=== PATIENT | female | born 1940 | race Caucasian/White ===

== ENCOUNTER 2017-06-16 08:09 | Emergency (ER) | payer OTHER ==
[2017-06-16 09:02] LABS: Absolute Lymphocytes (CBC) 1.6 K/uL (0.7-4.9); Absolute Monocytes 0.6 K/uL (0.1-1.3); Absolute Neutrophil 3.6 K/uL (1.8-8.0); Basophils % 1.1 % (0-1.3); Eosinophils % 1.7 % (0-4.4); Hematocrit 39.2 % (36.0-45.0); Lymphocytes % 26.5 % (15.3-44.8); MCH 32.8 pg (27.0-35.0); MCV 98.1 fL (80-100); MPV 9.4 fL (7.6-11.3)
[2017-06-16 09:06] LABS: Protime INR 0.97
[2017-06-16 09:13] LABS: Magnesium 2.2 mg/dL (1.8-2.5)
[2017-06-16 09:20] LABS: CKMB Creatine Kinase MB 1.7 ng/ml (0.3-4.0)
[2017-06-16 09:26] LABS: Potassium 3.8 mEq/L (3.6-5.0)
[2017-06-16] MEDS ORDERED: MORPHINE 4 MG/ML SYR ONE (10:04)
[2017-06-16] MEDS ORDERED: ONDANSETRON 4 MG/2 ML VIAL ONE ×2 (10:04→12:39)
[2017-06-16] MEDS ORDERED: ASPIRIN 81 MG CHEWABLE TABLET ONE (10:04)
--- NOTE | 2017-06-16 10:43 | EKG ---
Test Date: 2017-06-16 Test Time: 08:26:35 Technical Business Analyst: YOUNG MEASUREMENT RESULTS: Intervals: Rate: 72 [place]: 174 QRSD: 104 QT: 400 QTc: 438 Homer: P: 45 [place]: 174 QRS: -1 T: 20 INTERPRETIVE STATEMENTS: Normal sinus rhythm Normal ECG Compared to ECG 02/27/2017 18:31:13 Incomplete right bundle-branch block no longer present Electronically Signed On 06-16-17 10:43:16 CDT by Kaleb Joseph
--- NOTE | 2017-06-16 10:59 | RAD REPORT ---
EXAM DESCRIPTION: Sebastian Single View06/16/2017 9:02 am CLINICAL HISTORY: Chest pain COMPARISON: February 2017 FINDINGS: The lungs appear clear of acute infiltrate. The heart is mildly enlarged IMPRESSION: No acute abnormalities displayed
--- NOTE | 2017-06-16 12:09 | EDPHYS ---
Physician Documentation [facility] Name: Lila Jenkins Age: 76 yrs Sex: Female : 1940 Arrival Date: 06/16/2017 Time: 08:13 Bed 8 Private MD: Rolo Kapadia B ED Physician Sterling Petty HPI: 06/16 08:33 This 76 yrs old Female presents to ER via Ambulatory with complaints of Chest kb Pain, Cough. 08:33 The patient or guardian reports cough, that is intermittent, described as mild, kb described as moderate, with no sputum. Onset: The symptoms/episode began/occurred yesterday. Severity of symptoms: At their worst the symptoms were mild, moderate, in the emergency department the symptoms are unchanged. Modifying factors: The symptoms are alleviated by nothing, the symptoms are aggravated by nothing. Associated signs and symptoms: Pertinent positives: chest pain, Pertinent negatives: diarrhea, ear ache, fever, nausea, rhinorrhea, sore throat, vomiting. The patient has not experienced similar symptoms in the past. The patient has not recently seen a physician. Historical: - Allergies: 08:28 No Known Allergies; jl7 - Home Meds: 08:28 propasenone 150 mg 150mg 1.5 tab three times a day for Afib [Active]; jl7 - PMHx: 08:28 Atrial Fib; Bronchitis; GERD; upper GI bleed; UTI; jl7 - PSHx: 08:28 Hysterectomy; Cholecystectomy; jl7 - Immunization history:: Adult Immunizations up to date. - Social history:: Smoking status: Patient/guardian denies using tobacco. ROS: 08:32 Constitutional: Negative for fever, chills, and weight loss, Neck: Negative for injury, kb pain, and swelling, Abdomen/GI: Negative for abdominal pain, nausea, vomiting, diarrhea, and constipation, Back: Negative for injury and pain, : Negative for injury, bleeding, discharge, and swelling, MS/Extremity: Negative for injury and deformity, Skin: Negative for injury, rash, and discoloration, Neuro: Negative for headache, weakness, numbness, tingling, and seizure. 08:32 Cardiovascular: Positive for chest pain, with cough, Negative for edema, orthopnea, palpitations, paroxysmal nocturnal dyspnea. 08:32 Respiratory: Positive for cough, Negative for dyspnea on exertion, hemoptysis, orthopnea, pleurisy, shortness of breath, sputum production, wheezing. Exam: 08:32 Constitutional: This is a well developed, well nourished patient who is awake, alert, kb and in no acute distress. Head/Face: Normocephalic, atraumatic. ENT: Nares patent. No nasal discharge, no septal abnormalities noted. Tympanic membranes are normal and external auditory canals are clear. Oropharynx with no redness, swelling, or masses, exudates, or evidence of obstruction, uvula midline. Mucous membranes moist. Neck: Trachea midline, no thyromegaly or masses palpated, and no cervical lymphadenopathy. Supple, full range of motion without nuchal rigidity, or vertebral point tenderness. No Meningismus. Chest/axilla: Normal chest wall appearance and motion. Nontender with no deformity. No lesions are appreciated. Cardiovascular: Regular rate and rhythm with a normal S1 and S2. No gallops, murmurs, or rubs. Normal PMI, no JVD. No pulse deficits. Respiratory: Lungs have equal breath sounds bilaterally, clear to auscultation and percussion. No rales, rhonchi or wheezes noted. No increased work of breathing, no retractions or nasal flaring. Abdomen/GI: Soft, non-tender, with normal bowel sounds. No distension or tympany. No guarding or rebound. No evidence of tenderness throughout. Back: No spinal tenderness. No costovertebral tenderness. Full range of motion. Skin: Warm, dry with normal turgor. Normal color with no rashes, no lesions, and no evidence of cellulitis. MS/ Extremity: Pulses equal, no cyanosis. Neurovascular intact. Full, normal range of motion. Neuro: Awake and alert, GCS 15, oriented to person, place, time, and situation. Cranial nerves II-XII grossly intact. Motor strength 5/5 in all extremities. Sensory grossly intact. Cerebellar exam normal. Normal gait. Vital Signs: 08:28 BP 170 / 78; Pulse 74; Resp 16; Temp 97.5; Pulse Ox 100% ; Weight 45.81 kg; Height 5 jl7 ft. 2 in. (157.48 cm); Pain 5/10; 08:42 BP 143 / 70; Pulse 72; Resp 14 S; Pulse Ox 99% on R/A; Pain 5/10; jtb 09:34 BP 166 / 73; Pulse 61; Resp 13; Pulse Ox 98% on R/A; Pain 5/10; jtb 09:44 BP 144 / 75; Pulse 65; Resp 16; Pulse Ox 98% on R/A; Pain 5/10; jtb 10:24 BP 133 / 70; Pulse 61; Resp 16; Pulse Ox 99% on R/A; jb1 11:29 BP 141 / 69; Pulse 64; Resp 16 S; Pulse Ox 97% on R/A; jl7 12:05 BP 140 / 69; Pulse 58; Resp 16 S; Pulse Ox 98% on R/A; jl7 08:28 Body Mass Index 18.47 (45.81 kg, 157.48 cm) jl7 MDM: 08:24 Patient medically screened. kb 08:32 Data reviewed: vital signs, nurses notes. Data interpreted: Pulse oximetry: on room air kb is 100 %. Interpretation: normal. 11:20 ED course: Pt states she has no pain at this time. . kb 11:26 Counseling: I had a detailed discussion with the patient and/or guardian regarding: the historical points, exam findings, and any diagnostic results supporting the discharge/admit diagnosis, lab results, radiology results, the need for outpatient follow up, a family practitioner, to return to the emergency department if symptoms worsen or persist or if there are any questions or concerns that arise at home. 12:08 Data reviewed: I have discussed the patient's presentation/case with the attending Emergency Department Physician;. 06/16 08:24 Order name: Basic Metabolic Panel 06/16 08:24 Order name: BNP 06/16 08:24 Order name: CBC with Diff 06/16 08:24 Order name: Ckmb 06/16 08:24 Order name: CPK 06/16 08:24 Order name: Magnesium 06/16 08:24 Order name: PT-INR 06/16 08:24 Order name: Ptt, Activated 06/16 08:24 Order name: Troponin (emerg Dept Use Only) 06/16 09:10 Order name: Basic Metabolic Panel; Complete Time: 09:28 EDMS 06/16 09:13 Order name: Magnesium; Complete Time: 09:28 EDMS 06/16 09:17 Order name: CBC with Automated Diff; Complete Time: 09:25 EDMS 06/16 09:17 Order name: Troponin (Emerg Dept Use Only); Complete Time: 09:25 EDMS 06/16 09:17 Order name: Protime (+INR); Complete Time: 09:25 EDMS 06/16 08:24 Order name: XRAY Chest (1 view) kb 06/16 08:24 Order name: EKG; Complete Time: 08:25 kb 06/16 08:24 Order name: Cardiac monitoring; Complete Time: 08:29 kb 06/16 08:24 Order name: EKG - Nurse/Tech; Complete Time: 08:29 kb 06/16 09:17 Order name: PTT, Activated Partial Thromb; Complete Time: 09:25 EDMS 06/16 09:20 Order name: BNP B-Type Natriuretic Peptide; Complete Time: 09:25 EDMS 06/16 09:21 Order name: CKMB Creatine Kinase MB; Complete Time: 09:28 EDMS 06/16 09:27 Order name: Creatine Phosphokinase; Complete Time: 09:28 EDMS 06/16 10:59 Order name: RAD; Complete Time: 11:00 EDMS 06/16 11:15 Order name: Troponin (emerg Dept Use Only) kb 06/16 11:16 Order name: EKG; Complete Time: 11:16 kb 06/16 12:07 Order name: Troponin (Emerg Dept Use Only); Complete Time: 12:08 EDMS 06/16 08:24 Order name: IV Saline Lock; Complete Time: 08:51 kb 06/16 08:24 Order name: Labs collected and sent; Complete Time: 08:51 kb 06/16 08:24 Order name: O2 Per Protocol; Complete Time: 08:29 kb 06/16 08:24 Order name: O2 Sat Monitoring; Complete Time: 08:29 kb 06/16 08:24 Order name: Urine Dipstick-Ancillary (obtain specimen); Complete Time: 08:29 kb 06/16 11:16 Order name: EKG - Nurse/Tech; Complete Time: 11:41 kb Administered Medications: 09:46 Drug: Aspirin Chewable Tablet 324 mg Route: PO; jl7 10:22 Follow up: Response: No adverse reaction jl7 09:48 Drug: Zofran 4 mg Route: IVP; Site: right forearm; jl7 10:23 Follow up: Response: No adverse reaction jl7 09:50 Drug: morphine 4 mg Route: IVP; Site: right forearm; jl7 10:22 Follow up: Response: No adverse reaction; Pain is decreased jl7 12:22 Drug: Zofran 4 mg Route: IVP; Site: right forearm; jl7 12:30 Follow up: Response: No adverse reaction; Nausea is decreased jl7 Disposition: 14:00 Co-signature as Attending Physician, Sterling Petty MD I agree with the assessment and kdr plan of care. Disposition: 06/16/17 12:08 Discharged to Home. Impression: Chest pain, unspecified - with cough, Cough. - Condition is Stable. - Discharge Instructions: Cough, Adult, [id number]. - Medication Reconciliation Form, Thank You Letter, Antibiotic Education, Prescription Opioid Use form. - Follow up: Emergency Department; When: As needed; Reason: Worsening of condition. Follow up: Private Physician; When: 2 - 3 days; Reason: Recheck today's complaints, Continuance of care, Re-evaluation by your physician. Signatures: Dispatcher [employer] EDMeghann Reynolds, LIVING NURSE-C LIVING NURSE-Ckb Sterling Petty MD MD kdr Kenna Cordero, RANJEET RN garrett7 Lio Desai
--- NOTE | 2017-06-16 12:09 | ER ---
Nurse's Notes [facility] Name: Lila Jenkins Age: 76 yrs Sex: Female : 1940 Arrival Date: 06/16/2017 Time: 08:13 Bed 8 Private MD: Rolo Kapadia B Diagnosis: Chest pain, unspecified-with cough;Cough Presentation: 06/16 08:26 Presenting complaint: Patient states: c/o pain in substernal area to the back, pt jl7 states "It feels like a sore muscle from coughing.". Transition of care: patient was not received from another setting of care. Onset of symptoms was June 15, 2017. Care prior to arrival: None. 08:26 Method Of Arrival: Ambulatory [facility] 08:26 Acuity: MAREN 3 jl7 Triage Assessment: 08:28 General: Appears in no apparent distress. uncomfortable, Behavior is calm, cooperative, jl7 appropriate for age. Pain: Complains of pain in mid-sternal area Pain radiates to thoracic area Pain currently is 5 out of 10 on a pain scale. Quality of pain is described as "Sore" Pain began 1 day ago. Is continuous. Cardiovascular: Patient's skin is warm and dry. Rhythm is sinus rhythm. Historical: - Allergies: 08:28 No Known Allergies; jl7 - Home Meds: 08:28 propasenone 150 mg 150mg 1.5 tab three times a day for Afib [Active]; jl7 - PMHx: 08:28 Atrial Fib; Bronchitis; GERD; upper GI bleed; UTI; jl7 - PSHx: 08:28 Hysterectomy; Cholecystectomy; jl7 - Immunization history:: Adult Immunizations up to date. - Social history:: Smoking status: Patient/guardian denies using tobacco. Screenin:32 Abuse screen: Denies threats or abuse. Denies injuries from another. Nutritional jtb screening: No deficits noted. Tuberculosis screening: No symptoms or risk factors identified. Fall Risk None identified. Assessment: 08:32 General: Appears in no apparent distress. uncomfortable, Behavior is calm, cooperative, jtb appropriate for age. Pain: Complains of pain in xyphoid area Pain does not radiate. Pain currently is 5 out of 10 on a pain scale. at worst was 5 out of 10 on a pain scale. Quality of pain is described as dull, Pain began 1 day ago. Is continuous. Neuro: Level of Consciousness is awake, alert, obeys commands, Oriented to person, place, time, situation, Reports being lightheaded. Cardiovascular: Heart tones S1 S2 present Patient's skin is warm and dry. Respiratory: Airway is patent Respiratory effort is even, unlabored, Respiratory pattern is regular, symmetrical. GI: Reports nausea. : No signs and/or symptoms were reported regarding the genitourinary system. EENT: No signs and/or symptoms were reported regarding the EENT system. Derm: Skin is intact, Skin is pink, warm \\T\\ dry. Musculoskeletal: No signs and/or symptoms reported regarding the musculoskeletal system. 09:34 Reassessment: Patient appears in no apparent distress at this time. No changes from jtb previously documented assessment. Patient and/or family updated on plan of care and expected duration. Pain level reassessed. Patient is alert, oriented x 3, equal unlabored respirations, skin warm/dry/pink. 09:43 Reassessment: Pt c/o continued pain in the chest and back, requesting pain meds. jl7 Provider notified, see MAR for orders. 10:15 Reassessment: Pt reports decrease in pain, and is now denying pain. jtb 11:10 Reassessment: Provider at bedside discussing plan of care. [facility] 12:26 Reassessment: Patient and/or family updated on plan of care and expected duration. Pain jtb level reassessed. Patient is alert, oriented x 3, equal unlabored respirations, skin warm/dry/pink. Pt began vomiting during discharge, provider notified, see MAR for orders. Daughter notified that pt is ready for discharge and is on the way Patient denies pain at this time. Vital Signs: 08:28 BP 170 / 78; Pulse 74; Resp 16; Temp 97.5; Pulse Ox 100% ; Weight 45.81 kg; Height 5 jl7 ft. 2 in. (157.48 cm); Pain 5/10; 08:42 BP 143 / 70; Pulse 72; Resp 14 S; Pulse Ox 99% on R/A; Pain 5/10; jtb 09:34 BP 166 / 73; Pulse 61; Resp 13; Pulse Ox 98% on R/A; Pain 5/10; jtb 09:44 BP 144 / 75; Pulse 65; Resp 16; Pulse Ox 98% on R/A; Pain 5/10; jtb 10:24 BP 133 / 70; Pulse 61; Resp 16; Pulse Ox 99% on R/A; jb1 11:29 BP 141 / 69; Pulse 64; Resp 16 S; Pulse Ox 97% on R/A; jl7 12:05 BP 140 / 69; Pulse 58; Resp 16 S; Pulse Ox 98% on R/A; jl7 08:28 Body Mass Index 18.47 (45.81 kg, 157.48 cm) jl7 ED Course: 08:13 Patient arrived in ED. mr 08:13 Rolo Kapadia MD is Private Physician. mr 08:20 Meghann Ventura [facility]-C [facility] kb 08:20 Sterling Petty MD is Attending Physician. kb 08:25 Kenna Cordero RN is Primary Nurse. jl7 08:27 Triage completed. jl7 08:28 Arm band placed on right wrist. jl7 08:32 Patient has correct armband on for positive identification. Placed in gown. Bed in low jtb position. Call light in reach. Side rails up X 1. general farmer on. Pulse ox on. NIBP on. 08:39 EKG done, by neurology tech. reviewed by Meghann GONZALES. at1 08:49 Initial lab(s) drawn, by pr, sent to lab. Inserted saline lock: 20 gauge in right jl7 forearm, using aseptic technique. Blood collected. Patient maintains SpO2 saturation greater than 95% on room air. 08:59 X-ray completed. Portable x-ray completed in exam room. Patient tolerated procedure sw well. 11:32 EKG done, by neurology tech. reviewed by Meghann GONZALES. tc 12:35 No provider procedures requiring assistance completed. IV discontinued, intact, jtb bleeding controlled. Administered Medications: 09:46 Drug: Aspirin Chewable Tablet 324 mg Route: PO; jl7 10:22 Follow up: Response: No adverse reaction jl7 09:48 Drug: Zofran 4 mg Route: IVP; Site: right forearm; jl7 10:23 Follow up: Response: No adverse reaction jl7 09:50 Drug: morphine 4 mg Route: IVP; Site: right forearm; jl7 10:22 Follow up: Response: No adverse reaction; Pain is decreased jl7 12:22 Drug: Zofran 4 mg Route: IVP; Site: right forearm; jl7 12:30 Follow up: Response: No adverse reaction; Nausea is decreased jl7 Outcome: 12:08 Discharge ordered by . kb 12:35 Discharged to home ambulatory. jtb 12:35 Condition: stable 12:35 Discharge instructions given to patient, family, Instructed on discharge instructions, follow up and referral plans. Demonstrated understanding of instructions, follow-up care. 12:35 Attestation : I agree with everything documented by Lio Desai, Student Nurse. jl7 12:36 Patient left the ED. jtb Signatures: Jefe Ghotra jb1 Meghann Ventura, CUSHION SEWER-C CUSHION SEWER-Ckb Maryanne YoungbloodalesJessica, inspector of weights and measures EKG Tat1 Yani Valladares, inspector of weights and measures EKG Ttc Casandra Weeks Jahala, RN RN jl7 Lio Desai jtb
[2017-06-16 12:40] VITALS: TEMP 97.5
[2017-06-16 12:50] VITALS: BP 140/69; O2SAT 98
--- NOTE | 2017-06-16 13:43 | EKG ---
Test Date: 2017-06-16 Test Time: 11:22:58 Mixing Machine Operator: SHERRIE MEASUREMENT RESULTS: Intervals: Rate: 60 [place]: 176 QRSD: 98 QT: 440 QTc: 440 [place]: P: 71 [place]: 176 QRS: 34 T: 40 INTERPRETIVE STATEMENTS: Normal sinus rhythm Normal ECG Compared to ECG 06/16/2017 08:26:35 No significant changes Electronically Signed On 06-16-17 13:42:36 CDT by Kaleb Joseph
== END 2017-06-16 12:36 | disposition home or self-care (01) ==
LOC: ER 08:09
DX: R05 Cough (principal); I48.91 Unspecified atrial fibrillation; Z79.01 Long term (current) use of anticoagulants
CPT/HCPCS: 36415; 71045; 80048; 82550; 82553; 83735; 83880; 84484 ×2; 85025; 85610; 85730; 93005 ×2; 96374; 96375; 99285; J2405 ×2

== ENCOUNTER 2018-03-19 05:47 | Emergency (ER) | payer OTHER ==
[2018-03-19] MEDS ORDERED: NA CHLORIDE 0.9% 1,000 ML ONE (06:41)
--- OUTSIDE RECORDS SUMMARY | 2018-03-19 06:54 | XMS REPORT | Continuity of Care Document ---
:1940 Author Organization Interface Problems Problem Status Onset Classification Date Comments Source Date Reported Dilation of Active 03/01/20 Finding 03/01/[address] [facility] [place] Palpitations Active 03/01/20 Finding 03/01/[address] [facility] [facility] [place] Atrial Active 03/01/20 Finding 03/01/[address] [facility] fibrillation [facility] [place] Confusion Active 03/01/20 Finding 03/01/[address] [facility] [facility] [place] Hyperlipidemia Active 03/01/20 Finding 03/01/[address] [facility] [facility] [place] Chest pain Active 03/01/20 Finding 03/01/[address] [facility] [facility] [place] Hypertension Active 03/01/20 Finding 03/01/[address] [facility] [facility] [place] Urinary tract Active Finding 03/01/[address] [facility] infectious [facility] disease [place] Weakness Active Finding 03/01/[address] [facility] [place] Abdominal pain Active Finding 03/01/[address] [facility] [place] Medications Medication Details Route Status Patient Ordering Order Source Instructions Provider Date Lisinopril DAILY Active Fausto [facility] [place] Pantoprazole DAILY AT Active Fausto [facility]30 017 [facility] [place] Alprazolam THREE Active Fausto [facility] TIMES A [facility]17 [facility] DAY PRN [place] For Anxiety Aspirin DAILY Active Faust[facility] [place] Propafenone THREE Active Lambert [facility] TIMES A [facility]17 [facility] DAY [place] Propafenone [address] [facility] TIMES A 017 [facility] DAY [place] Propafenone Q8H Active Cortes [facility] [place] Propafenone DAILY Active [facility] [place] Allergies, Adverse Reactions, Alerts Substance Category Reaction Severity Reaction Status Date Comments Source type Reported Immunizations Immunization Date Given Site Status Last Updated Comments Source Results Order Name Results Value Reference Date Interpretation Comments Source Range Laboratory Triglycerides 85 mg/dL 35 - 160 02/[address] [facility] St. Studies Level /2016 [facility] [place] Laboratory Total 0.7 mg/dL 0.3 - 1.2 02/[address] [facility] St. Studies Bilirubin /2016 [facility] [place] Laboratory Sodium Level 142 mEq/L 135 - 145 02/[address] [facility] St. Studies [facility] [place] Laboratory Serum Total 5.6 g/dL 6.0 - 8.3 02/28 [facility]. Studies Protein /2016 [facility] [place] Laboratory Potassium 4.0 mEq/L 3.6 - 5.0 02/[address] [facility] St. Studies Level /2016 [facility] [place] Laboratory LDL 138 02/28 [facility]. Studies Cholesterol, /2016 [facility] - Calculated [place] Laboratory HDL 64 mg/dL 29 - 89 02/[address] [facility] St. Studies Cholesterol /2016 [facility] [place] Laboratory Glucose Level 94 mg/dL 65 - 120 02/[address] [facility] St. Studies /2016 [facility] [place] Laboratory Globulin 2.5 g/dL 2.3 - 3.5 02/[address] [facility] St. Studies /2016 [facility] [place] Laboratory Estimat 69 mL/min 90 02/[address] [facility] St. Studies Glomerular /2016 [facility] Filtration [place] Rate Laboratory Creatinine 0.81 mg/dL 0.44 - 02/[address] [facility] St. Studies 1.00 [facility] [place] Laboratory Creatine 2.1 ng/ml 0.3 - 4.0 02/[address] [facility] St. Studies Kinase MB /2016 [facility] [place] Laboratory Creatine 41 IU/L 22 - 269 02/[address] [facility] St. Studies Kinase /2016 [facility] [place] Laboratory Cholesterol/H 3.42 02/[address] [facility] St. Studies DL Ratio /2016 [facility] [place] Laboratory Cholesterol 219 mg/dL 02/[address] [facility] St. Studies Level /2017 [facility] [place] Laboratory Chloride 109 mEq/L 101 - 111 02/[address] [facility] St. Studies Level /2016 [facility] [place] Laboratory Carbon 28 mEq/L 21 - 31 02/[address] [facility] St. Studies Dioxide Level /2016 [facility] [place] Laboratory Calcium Level 9.0 mg/dL 8.5 - 10.5 02/[address] [facility] St. Studies /2016 [facility] [place] Laboratory Blood Urea 10 mg/dL 6 - 20 02/28 [facility]. Studies Nitrogen /2016 [facility] [place] Laboratory Aspartate 22 IU/L 10 - 42 02/28 [facility]. Studies Amino Transf /2016 [facility] (AST/SGOT) [place] Laboratory Alkaline 33 IU/L 42 - 121 02/28 [facility]. Studies Phosphatase /2016 [facility] [place] Laboratory Albumin/Globu 1.2 1.1 - 1.8 02/28 [facility]. Studies velia Ratio /2016 [facility] [place] Laboratory Albumin 3.1 g/dL 3.2 - 5.5 02/28 [facility]. Studies /2016 [facility] [place] Laboratory Alanine 12 IU/L 10 - 60 02/28 [facility]. Studies Aminotransfer [facility] ase [place] (ALT/SGPT) Laboratory Troponin I null 02/28 [facility]. Studies /2016 [facility] [place] Laboratory White Blood 6.4 K/uL 4.3 - 10.9 02/28 [facility]. Studies Count /2016 [facility] [place] Laboratory Red Cell 14.0 % 12.1 - 02/28 [facility]. Studies Distribution 15.2 /2016 [facility] Width [place] Laboratory Red Blood 3.55 M/uL 3.86 - 02/28 [facility]. Studies Count 4.86 /2016 [facility] [place] Laboratory Platelet 175 K/uL 152 - 406 02/28 [facility]. Studies Count /2016 [facility] [place] Laboratory Neutrophils % 48.0 % 41.7 - 02/28 [facility]. Studies 73.7 /2016 [facility] [place] Laboratory Monocytes % 12.0 % 3.3 - 12.3 02/28 [facility]. Studies /2016 [facility] [place] Laboratory Mean Platelet 9.5 fL 7.6 - 11.3 02/28 [facility]. Studies Volume /2016 [facility] [place] Laboratory Mean 98.3 fL 80 - 100 02/28 [facility]. Studies Corpuscular /2016 [facility] Volume [place] Laboratory Mean 33.7 g/dL 32.0 - 02/28 [facility]. Studies Corpuscular 36.0 /2016 [facility] Hemoglobin [place] [facility] Laboratory Mean 33.2 pg 27.0 - 02/28 [facility]. Studies Corpuscular 35.0 /2016 [facility] Hemoglobin [place] Laboratory Lymphocytes % 37.0 % 15.3 - 02/[address] [facility] St. Studies 44.8 /2016 [facility] [place] Laboratory Hemoglobin 11.8 g/dL 12.0 - 02/[address] [facility] St. Studies 15.0 /2016 [facility] [place] Laboratory Hematocrit 34.9 % 36.0 - 02/28 [facility]. Studies 45.0 /2016 [facility] [place] Laboratory Eosinophils % 2.2 % 0 - 4.4 02/[address] [facility] St. Studies [facility] [place] Laboratory Basophils % 0.8 % 0 - 1.3 02/28 [facility]. Studies [facility] [place] Laboratory Absolute 3.1 K/uL 1.8 - 8.0 02/28 [facility]. Studies Neutrophil [facility] [place] Laboratory Absolute 0.8 K/uL 0.1 - 1.3 02/28 [facility]. Studies Monocytes [facility] - (CBC) [place] Laboratory Absolute 2.4 K/uL 0.7 - 4.9 02/28 [facility]. Studies Lymphocytes [facility] - (CBC) [place] Laboratory Absolute 0.1 K/uL 0 - 0.5 02/28 [facility]. Studies Eosinophils [facility] - (CBC) [place] Laboratory Absolute 0.1 K/uL 0 - 0.5 02/28 [facility]. Studies Basophils [facility] - (CBC) [place] Laboratory Rapid null 02/27 [facility]. Studies Troponin I /2016 [facility] [place] Laboratory Prothrombin 11.4 9.5 - 12.5 02/27 [facility]. Studies Time SECONDS /2016 [facility] [place] Laboratory INR 0.97 02/27 [facility]. Studies International /2016 [facility] Normalized [place] Ratio Laboratory Activated 27.2 24.3 - 02/27 [facility]. Studies Partial SECONDS 36.9 /2016 [facility] Thromboplast [place] Time Laboratory B-Type 135 pg/ml 02/27 [facility]. Studies Natriuretic [facility] Peptide [place] Laboratory Magnesium 2.0 mg/dL 1.8 - 2.5 02/27 [facility]. Studies Level /2016 [facility] [place] Laboratory Direct null 0 - 0.2 02/27 [facility] Studies Bilirubin /2016 [facility] [place] Laboratory Sedimentation 16 mm/HR 0 - 30 12/23 [facility] Studies Rate, /2016 [facility] [place] Laboratory C-Reactive null 12/23 [facility] Studies Protein /2016 [facility] [place] Laboratory Urine WBC null 12/23 [facility]. Studies [facility] [place] Laboratory Urine null 12/23 [facility] Studies Squamous [facility] Epithelial [place] Cells Laboratory Urine RBC Urine RBC 12/23 [facility]. Studies /2016 [facility] [place] Laboratory Urine Culture Urine 12/23 [facility] Studies Reflexed Culture /2016 [facility] Reflexed [place] Laboratory Urine Urine 12/23 [facility] Studies Bacteria Bacteria /2016 [facility] [place] Laboratory Urine pH 6.0 12/23 [facility]. Studies [facility] [place] Laboratory Urine 0.2 mg/dL 12/23 [facility] Studies Urobilinogen /2016 [facility] [place] Laboratory Urine Total Urine Total 12/23 [facility] Studies Protein Protein /2016 [facility] [place] Laboratory Urine Urine 12/23 [facility] Studies Specific Specific /2016 [facility] [place] Laboratory Urine Nitrite Urine 12/23 [facility] Studies Nitrite [facility] [place] Laboratory Urine Urine 12/23 [facility] Studies Leukocyte Leukocyte /2016 [facility] Esterase Esterase [place] Laboratory Urine Ketones Urine 12/23 [facility] Studies Ketones /2016 [facility] [place] Laboratory Urine Glucose Urine 12/23 [facility] Studies Glucose /2016 [facility] [place] Laboratory Urine Color Urine Color 12/23 [facility] Studies [facility] [place] Laboratory Urine Blood Urine Blood 12/23 [facility] Studies [facility] [place] Laboratory Urine Urine 12/23 [facility] Studies Bilirubin Bilirubin /2016 [facility] [place] Laboratory Urine Urine 12/23 [facility] Studies Appearance Appearance /2016 [facility] [place] Vital Signs Vital Sign Value Date Comments Source Temperature Oral (F) 98 F 03/01/2017 [facility] [place] Heart Rate 58 03/01/2017 [facility] [place] Respitory Rate 18 03/01/2017 [facility] [place] Systolic (mm Hg) 135 03/01/[address] [facility] [place] Diastolic (mm Hg) 66 03/01/[address] [facility] [place] Height 61 02/27/[address] [facility] [place] Weight 100 02/27/[address] [facility] [place] Encounters Location Location Encounter Encounter Reason Attending ADM DC Status Source Details Type Number For Provider Date Date Visit [facility] Registered [id number] 12/[address] [facility] [place] [facility] [facility] [id number] 01/04 01/[address] [facility] Emergency /[facility] [place] [facility] [id number] 02/27 03/[address] [facility] [place] Out[facility] [id number] GRICELDA 11/23 Active [facility] /2018 [facility] [id number] GRICELDA 12/14 Active [facility] Outpatient [id number] GRICELDA 01/25 Active [facility] /[facility] [place] [facility] [id number] GRICELDA 03/08 Active [facility] /[facility] [place] Outpatient [id number] GRICELDA 06/28 Active [facility] /[facility] [place] Procedures Procedure Code Date Perfomer Comments Source Head Brain Wo [id number] [facility] Cont 7 [place] Abdomen & [id number] [facility] Pelvis W 7 [place] Contrast Chest Single [id number] [facility] - View 7 [place] Chest Single [id number] [facility] - View 7 [place] Count [id number] [facility] [place] [id number] [facility] [place]
[2018-03-19 07:06] LABS: Absolute Lymphocytes (CBC) 1.8 K/uL (0.7-4.9); Absolute Monocytes 0.6 K/uL (0.1-1.3); Absolute Neutrophil 3.1 K/uL (1.8-8.0); Basophils % 0.3 % (0-1.3); Eosinophils % 2.5 % (0-4.4); Hematocrit 36.9 % (36.0-45.0); MCH 33.4 pg (27.0-35.0); MCV 97.7 fL (80-100); MPV 9.6 fL (7.6-11.3); Monocytes % 11.4 % (3.3-12.3); RBC Red Blood Cell Count 3.78 M/uL (3.86-4.86)
[2018-03-19 07:10] LABS: Protime INR 0.99
[2018-03-19 07:52] LABS: ALT/SGPT 20 U/L (12-78); AST/SGOT 19 U/L (15-37); Albumin 3.4 g/dL (3.4-5.0); Alkaline Phosphatase 49 U/L (45-117); BUN Blood Urea Nitrogen 13 mg/dL (7-18); Bicarbonate 31 mmol/L (21-32); Bilirubin Direct 0.1 mg/dL (0-0.2); Bilirubin Total 0.3 mg/dL (0.2-1.0); Glucose Level 90 mg/dL (74-106); Magnesium 2.2 mg/dL (1.8-2.4); NT PRO-BNP 133 pg/mL (<450); Potassium 3.3 mmol/L (3.5-5.1); Protein, Total 6.9 g/dL (6.4-8.2); Sodium Level 141 mmol/L (136-145); Troponin (Emerg Dept Use Only) < 0.02 ng/mL (0.0-0.045)
--- NOTE | 2018-03-19 07:58 | RAD REPORT ---
EXAM DESCRIPTION: CT - Head Brain Wo Cont - 03/19/2018 7:31 am CLINICAL HISTORY: Dizziness COMPARISON: November 2017 TECHNIQUE: Computed axial tomography of the head was obtained. IV contrast was not requested. All CT scans are performed using dose optimization technique as appropriate and may include automated exposure control or mA/KV adjustment according to patient size. FINDINGS: An intracranial bleed is not seen . The ventricles are normal in caliber. No extra-axial fluid collection is noted. Moderate to marked low-density within periventricular, deep and subcortical white matter probably represent ischemic changes secondary to small vessel disease. Demyelinating process can also similar appearance Fluid within the sinuses/ mastoids is not seen. IMPRESSION: No acute intracranial abnormality is seen. If patient's symptoms persist MRI of the bra in would be recommended.
[2018-03-19 09:28] LABS: Urine Blood NEGATIVE (NEG); Urine Glucose NEGATIVE (NEG); Urine Protein NEGATIVE (NEG); Urine Specific Gravity 1.015 (1.005-1.030); Urine pH 7.5 (5.0-7.0)
[2018-03-19] MEDS ORDERED: POTASSIUM 25 MEQ EFFERV TAB ONE (09:42)
[2018-03-19 09:47] LABS: Urine Bacteria NONE SEEN /HPF (<20); Urine RBC <5 /HPF (NONE SEEN)
[2018-03-19 09:48] LABS: Urine Culture Reflex Order NOT NEEDED
--- NOTE | 2018-03-19 10:00 | ER ---
Nurse's Notes [facility] Name: Lila Jenkins Age: 77 yrs Sex: Female : 1940 Arrival Date: 03/19/2018 Time: 05:49 Bed 14 [facility] MD: Diagnosis: Weakness;Hypokalemia Presentation: 03/19 06:00 Presenting complaint: Patient states: feeling lightheaded and weak today morning. cc3 Transition of care: patient was not received from another setting of care. Onset of symptoms was March 19, 2018. Risk Assessment: Do you want to hurt yourself or someone else? Patient reports no desire to harm self or others. Initial Sepsis Screen: Does the patient meet any 2 criteria? No. Patient's initial sepsis screen is negative. Does the patient have a suspected source of infection? No. Patient's initial sepsis screen is negative. Care prior to arrival: None. 06:00 Method Of Arrival: Wheelchair cc3 06:00 Acuity: MAREN 3 cc3 Triage Assessment: 06:00 General: Appears in no apparent distress. comfortable, Behavior is calm, cooperative, cc3 appropriate for age. Pain: Denies pain. Historical: - Allergies: 06:00 No Known Allergies; cc3 - Home Meds: 06:00 propasenone 150 mg 150mg 1.5 tab three times a day for AFIB [Active]; cc3 - PMHx: 06:00 Atrial Fib; Bronchitis; GERD; upper GI bleed; UTI; Alzheimers; cc3 - PSHx: 06:00 Hysterectomy; Cholecystectomy; cc3 - Immunization history:: Adult Immunizations not up to date. - Social history:: Smoking status: Patient/guardian denies using tobacco, never smoked. - Ebola Screening: : No symptoms or risks identified at this time. Screenin:00 Abuse screen: Denies threats or abuse. Denies injuries from another. Nutritional cc3 screening: No deficits noted. Tuberculosis screening: No symptoms or risk factors identified. Fall Risk Ambulatory Aid- None/Bed Rest/Nurse Assist (0 pts). Gait- Normal/Bed Rest/Wheelchair (0 pts) Mental Status- Oriented to own ability (0 pts). Assessment: 06:30 Reassessment: Patient's daughters left their mobile numbers: Betzaida [phone] and 3 Rozina [phone]. 07:00 General: Appears in no apparent distress. comfortable, Behavior is calm, cooperative, bp appropriate for age, RECD REPORT FROM ADRIENNE POLLACK. 77YO WF P/W GEN WEAKNESS. PER , SEPSIS W/U IN PROCESS. Pain: Denies pain. Neuro: Level of Consciousness is awake, alert, obeys commands, Oriented to person, place, time, situation, Appropriate for age. Cardiovascular: Rhythm is sinus rhythm. Respiratory: Airway is patent Respiratory effort is even, unlabored, Respiratory pattern is regular, symmetrical. GI: No signs and/or symptoms were reported involving the gastrointestinal system. : No signs and/or symptoms were reported regarding the genitourinary system. EENT: No deficits noted. Derm: No deficits noted. Musculoskeletal: Circulation, motion, and sensation intact. Range of motion: intact in all extremities. 09:00 Reassessment: ALL CURRENT ORDERS COMPLETED, RESULTS PENDING. bp 09:33 Reassessment: PT AMBULATING WITHOUT DIFFICULTY OR ATAXIA. bp 10:00 Reassessment: PT BECOMING INCREASINGLY AGITATED, REFUSING TO STAY IN BED AND YELLING AT bp STAFF. FAMILY CONTACTED FOR D/C HOME. 10:55 Reassessment: PT D/C HOME WITH FAMILY. bp Vital Signs: 06:00 BP 156 / 83; Pulse 66; Resp 20; Temp 98.2(O); Pulse Ox 100% on R/A; Weight 45.36 kg cc3 (R); Height 5 ft. 3 in. (160.02 cm) (R); 07:49 BP 149 / 69; Pulse 61; Resp 20; Pulse Ox 95% ; bp 08:40 BP 140 / 68; Pulse 63; Resp 14; Pulse Ox 100% on R/A; mh5 10:02 BP 159 / 83; Pulse 79; Resp 16; Pulse Ox 100% ; bp 06:00 Body Mass Index 17.71 (45.36 kg, 160.02 cm) cc3 NIH Stroke Scale Scores: 06:31 NIHSS Score: 0 snw ED Course: 05:49 Patient arrived in ED. ag3 05:59 Veronica Horn FNP-C [facility] snw 05:59 Eleazar Toro MD is Attending Physician. snw 06:00 Arm band placed on left wrist. cc3 06:00 Patient has correct armband on for positive identification. Placed in gown. Bed in low cc3 position. Call light in reach. Side rails up X 1. Adult w/ patient. gambling monitor on. Pulse ox on. NIBP on. 06:06 Adrienne Meza is Primary Nurse. cc3 06:18 Triage completed. cc3 07:00 Report given to RN Parag. cc3 07:00 Inserted saline lock: 22 gauge in left antecubital area, using aseptic technique. Blood bp collected. 07:02 Primary Nurse role handed off by Adrienne Meza bp 07:02 Parag Silvestre, RANJEET is Primary Nurse. bp 07:07 X-ray completed. Portable x-ray completed in exam room. Patient tolerated procedure sg4 well. 07:08 XRAY Chest (1 view) In Process Unspecified. EDMS 07:32 CT Head Brain wo Cont In Process Unspecified. EDMS 07:32 CT completed. Patient tolerated procedure well. Patient moved back from CT. bq 10:02 No provider procedures requiring assistance completed. IV discontinued, intact, bp bleeding controlled, No redness/swelling at site. Pressure dressing applied. Administered Medications: 07:00 Drug: NS 0.9% 1000 ml Route: IV; Rate: 75 ml/hr; Site: left antecubital; cc3 10:03 Follow up: IV Status: Completed infusion; IV Intake: 300ml bp 09:37 Drug: Potassium Effervescent Tablet 25 mEq Route: PO; bp 09:38 Follow up: Response: No adverse reaction bp Intake: 10:03 IV: 300ml; Total: 300ml. bp Outcome: 10:00 Discharge ordered by snw 10:55 Discharged to home ambulatory, with family. bp 10:55 Condition: stable 10:55 Discharge instructions given to patient, family, Instructed on discharge instructions, follow up and referral plans. Demonstrated understanding of instructions, follow-up care. 10:56 Patient left the ED. bp NIH Stroke Scale - NIH Stroke Score Date: 03/19/2018 Time: 06:31 Total Score = 0 1a. Level of Consciousness (LOC) - 0(Alert) 1b. Level of Consciousness (LOC) (Year \T\ Age) - 0(Both) 1c. LOC Commands (Open \T\ Closes Eyes/Quality Control Associate) - 0(Both) 2. Best Gaze (Lateral Gaze Paresis) - 0(Normal) 3. Visual Field Loss - 0(No visual loss) 4. Facial Palsy - 0(Normal) 5a. Left Arm: Motor (10-second hold) - 0(No drift) 5b. Right Arm: Motor (10-second hold) - 0(No drift) 6a. Left Leg: Motor (5-second hold - always test supine) - 0(No drift) 6b. Right Leg: Motor (5-second hold - always test supine) - 0(No drift) 7. Limb Ataxia (finger/nose \T\ heel/bazzi - test with eyes open) - 0(Absent) 8. Sensory Loss (pinprick arms/legs/face) - 0(Normal) 9. Best Language: Aphasia (description/naming/reading) - 0(No aphasia) 10. Dysarthria (speech clarity - read or repeat words) - 0(Normal) 11. Extinction and Inattention (visual/tactile/auditory/spatial/personal) - 0(No abnormality) Initials: snw Signatures: Dispatcher [employer] EDMS Veronica Horn, COKE OVEN PATCHER-C COKE OVEN PATCHER-Csnw Radha Melendez Maria 5 Parag Silvestre, RANJEET RN bp Adrienne Meza cc3 Princess Fatima ag3 Kanika Puga 4
--- NOTE | 2018-03-19 10:00 | EDPHYS ---
Physician Documentation [facility] Name: Lila Jenkins Age: 77 yrs Sex: Female : 1940 Arrival Date: 03/19/2018 Time: 05:49 Bed 14 Private MD: [facility]DAY Physician Eleazar Toro HPI: 03/19 06:34 This 77 yrs old Female presents to ER via Wheelchair with complaints of snw Weakness. 06:34 The patient presents to the emergency department with weakness of the entire body, snw generalized weakness, that is mild, that is moderate, difficulty standing, feels like passing out. Onset: The symptoms/episode began/occurred suddenly, last night. Context: occurred at home, occurred while the patient was standing. Associated signs and symptoms: Pertinent positives: nausea. Patient's baseline: Neuro: orientated to person, place, time, recent dx of alzheimer's. It is unknown whether or not the patient has had similar symptoms in the past. The patient has been recently seen by a physician: the patient's primary care provider, Dr. Kapadia. Historical: - Allergies: 06:00 No Known Allergies; cc3 - Home Meds: 06:00 propasenone 150 mg 150mg 1.5 tab three times a day for AFIB [Active]; cc3 - PMHx: 06:00 Atrial Fib; Bronchitis; GERD; upper GI bleed; UTI; Alzheimers; cc3 - PSHx: 06:00 Hysterectomy; Cholecystectomy; cc3 - Immunization history:: Adult Immunizations not up to date. - Social history:: Smoking status: Patient/guardian denies using tobacco, never smoked. - Ebola Screening: : No symptoms or risks identified at this time. ROS: 06:33 Eyes: Negative for injury, pain, redness, and discharge, ENT: Negative for injury, snw pain, and discharge, Neck: Negative for injury, pain, and swelling, Cardiovascular: Negative for chest pain, palpitations, and edema, Respiratory: Negative for shortness of breath, cough, wheezing, and pleuritic chest pain. 06:33 Back: Negative for injury and pain, : Negative for injury, bleeding, discharge, and swelling, MS/Extremity: Negative for injury and deformity, Skin: Negative for injury, rash, and discoloration. 06:33 Psych: Negative for depression, anxiety, suicide ideation, homicidal ideation, and hallucinations. 06:33 Constitutional: Positive for malaise. 06:33 Abdomen/GI: Positive for nausea. 06:33 Neuro: Positive for weakness, dizziness with position change. Exam: 06:31 Head/Face: Normocephalic, atraumatic. Eyes: Pupils equal round and reactive to light, snw extra-ocular motions intact. Lids and lashes normal. Conjunctiva and sclera are non-icteric and not injected. Cornea within normal limits. Periorbital areas with no swelling, redness, or edema. ENT: Nares patent. No nasal discharge, no septal abnormalities noted. Tympanic membranes are normal and external auditory canals are clear. Oropharynx with no redness, swelling, or masses, exudates, or evidence of obstruction, uvula midline. Mucous membranes moist. Neck: Trachea midline, no thyromegaly or masses palpated, and no cervical lymphadenopathy. Supple, full range of motion without nuchal rigidity, or vertebral point tenderness. No Meningismus. Chest/axilla: Normal chest wall appearance and motion. Nontender with no deformity. No lesions are appreciated. Cardiovascular: Regular rate and rhythm with a normal S1 and S2. No gallops, murmurs, or rubs. Normal PMI, no JVD. No pulse deficits. Respiratory: Lungs have equal breath sounds bilaterally, clear to auscultation and percussion. No rales, rhonchi or wheezes noted. No increased work of breathing, no retractions or nasal flaring. 06:31 Back: No spinal tenderness. No costovertebral tenderness. Full range of motion. MS/ Extremity: Pulses equal, no cyanosis. Neurovascular intact. Full, normal range of motion. 06:31 Constitutional: The patient appears alert, awake, pale. 06:31 Abdomen/GI: Inspection: abdomen appears normal, Bowel sounds: hyperactive, in all quadrants. 06:31 Skin: Appearance: Color: pale. 06:31 Neuro: Orientation: is normal, Mentation: is normal, Memory: appropriate for stated age, Motor: is normal, Babinski testing is normal, seizure activity, is not displayed by the patient. Vital Signs: 06:00 BP 156 / 83; Pulse 66; Resp 20; Temp 98.2(O); Pulse Ox 100% on R/A; Weight 45.36 kg cc3 (R); Height 5 ft. 3 in. (160.02 cm) (R); 07:49 BP 149 / 69; Pulse 61; Resp 20; Pulse Ox 95% ; bp 08:40 BP 140 / 68; Pulse 63; Resp 14; Pulse Ox 100% on R/A; mh5 10:02 BP 159 / 83; Pulse 79; Resp 16; Pulse Ox 100% ; bp 06:00 Body Mass Index 17.71 (45.36 kg, 160.02 cm) cc3 NIH Stroke Scale Scores: 06:31 NIHSS Score: 0 snw MDM: 05:59 Patient medically screened. snw 10:00 Data reviewed: vital signs, nurses notes. Data interpreted: Pulse oximetry: on room air snw is 100 %. Interpretation: normal. Counseling: I had a detailed discussion with the patient and/or guardian regarding: the historical points, exam findings, and any diagnostic results supporting the discharge/admit diagnosis, the presence of at least one elevated blood pressure reading (>120/80) during this emergency department visit, lab results, radiology results, the need for outpatient follow up, for definitive care, to return to the emergency department if symptoms worsen or persist or if there are any questions or concerns that arise at home. Response to treatment: the patient's symptoms have markedly improved after treatment, the patient's condition has returned to base line, and as a result, I will discharge patient. Special discussion: Based on the history and exam findings, there is no indication for further emergent testing or inpatient evaluation. I discussed with the patient/guardian the need to see the primary care provider for further evaluation of the symptoms. 03/19 06:00 Order name: Urine Culture snw 03/19 06:00 Order name: Urine Microscopic Only; Complete Time: 09:59 snw 03/19 06:17 Order name: Basic Metabolic Panel; Complete Time: 08:18 snw 03/19 06:17 Order name: CBC with Diff; Complete Time: 07:07 snw 03/19 06:17 Order name: LFT's; Complete Time: 08:18 snw 03/19 06:17 Order name: Magnesium; Complete Time: 08:18 snw 03/19 06:17 Order name: PT-INR; Complete Time: 07:16 snw 03/19 06:17 Order name: Blood Culture Adult (2) snw 12/22 06:17 Order name: TS; Complete Time: 08:18 snw 03/19 06:17 Order name: Procalcitonin; Complete Time: 08:18 snw 03/19 06:17 Order name: Lactate; Complete Time: 08:18 snw 03/19 06:00 Order name: Urine Dipstick-Ancillary (obtain specimen); Complete Time: 09:17 snw 03/19 06:17 Order name: XRAY Chest (1 view); Complete Time: 10:33 snw 03/19 06:17 Order name: EKG; Complete Time: 06:18 snw 03/19 06:17 Order name: Cardiac monitoring; Complete Time: 06:22 snw 03/19 06:17 Order name: EKG - Nurse/Tech; Complete Time: 07:09 snw 03/19 06:17 Order name: IV Saline Lock; Complete Time: 07:09 snw 03/19 06:17 Order name: Labs collected and sent; Complete Time: 07:09 snw 03/19 06:17 Order name: CT Head Brain wo Cont; Complete Time: 08:18 snw 03/19 06:17 Order name: AMMONIA; Complete Time: 08:18 snw 03/19 07:16 Order name: Troponin (Emerg Dept Use Only); Complete Time: 08:18 EDMS 03/19 07:16 Order name: NT PRO-BNP; Complete Time: 08:18 EDMS 03/19 07:16 Order name: Thyroid Stimulating Hormone; Complete Time: 08:18 EDMS 03/19 09:21 Order name: Urine Dipstick--Ancillary (enter results); Complete Time: 09:31 eb 03/19 06:17 Order name: O2 Per Protocol; Complete Time: 06:23 snw 03/19 06:17 Order name: O2 Sat Monitoring; Complete Time: 06:23 snw 03/19 09:25 Order name: Misc. Order: ambulate with patient in hallway; Complete Time: 09:30 snw Administered Medications: 07:00 Drug: NS 0.9% 1000 ml Route: IV; Rate: 75 ml/hr; Site: left antecubital; cc3 10:03 Follow up: IV Status: Completed infusion; IV Intake: 300ml bp 09:37 Drug: Potassium Effervescent Tablet 25 mEq Route: PO; bp 09:38 Follow up: Response: No adverse reaction bp Disposition: 03/19/18 10:00 Discharged to Home. Impression: Weakness, Hypokalemia. - Condition is Stable. - Discharge Instructions: Potassium Content of Foods, Weakness, Hypokalemia. - Medication Reconciliation Form, Thank You Letter, Antibiotic Education, Prescription Opioid Use form. - Follow up: Private Physician; When: 2 - 3 days; Reason: Recheck today's complaints, Continuance of care, Re-evaluation by your physician. Follow up: Emergency Department; When: As needed; Reason: Worsening of condition. NIH Stroke Scale - NIH Stroke Score Date: 03/19/2018 Time: 06:31 Total Score = 0 1a. Level of Consciousness (LOC) - 0(Alert) 1b. Level of Consciousness (LOC) (Year \T\ Age) - 0(Both) 1c. LOC Commands (Open \T\ Closes Eyes/Behavioral Consultant) - 0(Both) 2. Best Gaze (Lateral Gaze Paresis) - 0(Normal) 3. Visual Field Loss - 0(No visual loss) 4. Facial Palsy - 0(Normal) 5a. Left Arm: Motor (10-second hold) - 0(No drift) 5b. Right Arm: Motor (10-second hold) - 0(No drift) 6a. Left Leg: Motor (5-second hold - always test supine) - 0(No drift) 6b. Right Leg: Motor (5-second hold - always test supine) - 0(No drift) 7. Limb Ataxia (finger/nose \T\ heel/bazzi - test with eyes open) - 0(Absent) 8. Sensory Loss (pinprick arms/legs/face) - 0(Normal) 9. Best Language: Aphasia (description/naming/reading) - 0(No aphasia) 10. Dysarthria (speech clarity - read or repeat words) - 0(Normal) 11. Extinction and Inattention (visual/tactile/auditory/spatial/personal) - 0(No abnormality) Initials: snw Signatures: Dispatcher [employer] EDMS Veronica Horn, [employer]C [employer]Csnw Parag Silvestre, RN RN bp Adrienne Meza cc3 Corrections: (The following items were deleted from the chart) 07:08 06:00 Anderson ordered. snw bp 07:15 06:17 PROBNP+C.LAB.BRZ ordered. [facility] EDMS 07:15 06:17 TROPONIN (EMERG DEPT USE ONLY)+C.LAB.BRZ ordered. [facility] EDMS 07:15 06:18 THYROID STIMULAT HORMONE+C.LAB.BRZ ordered. [facility] EDMS 10:56 10:00 03/19/2018 10:00 Discharged to Home. Impression: Weakness; Hypokalemia. bp Condition is Stable. Forms are Medication Reconciliation Form, Thank You Letter, Antibiotic Education, Prescription Opioid Use. Follow up: Private Physician; When: 2 - 3 days; Reason: Recheck today's complaints, Continuance of care, Re-evaluation by your physician. Follow up: Emergency Department; When: As needed; Reason: Worsening of condition. snw
--- NOTE | 2018-03-19 10:32 | RAD REPORT ---
EXAM DESCRIPTION: Sebastian Single View03/19/2018 7:08 am CLINICAL HISTORY: Chest pain COMPARISON: May 2017 FINDINGS: The lungs appear clear of acute infiltrate. The heart is mildly enlarged IMPRESSION: No acute abnormalities displayed
[2018-03-19 11:02] VITALS: TEMP 98.2
[2018-03-19 11:05] VITALS: O2SAT 100
[2018-03-19 11:06] VITALS: BP 159/83
--- NOTE | 2018-03-19 16:08 | EKG ---
Test Date: 2018-03-19 Test Time: 06:52:30 Director Of Broadcast: OMAR MEASUREMENT RESULTS: Intervals: Rate: 64 WV: 210 QRSD: 112 QT: 428 QTc: 441 [facility]: P: 63 WV: 210 QRS: 11 T: 45 INTERPRETIVE STATEMENTS: Sinus rhythm with 1st degree AV block Otherwise normal ECG Compared to ECG 06/16/2017 11:22:58 First degree AV block now present Electronically Signed On 03-19-18 16:07:53 [employer] by Adam Martin
== END 2018-03-19 10:56 | disposition home or self-care (01) ==
LOC: ER 05:47
DX: E87.6 Hypokalemia (principal); G30.9 Alzheimer's disease, unspecified; F02.80 Dementia in other diseases classified elsewhere, unspecified severity, without behavioral disturbance, psychotic disturbance, mood disturbance, and anxiety; I48.91 Unspecified atrial fibrillation; Z79.01 Long term (current) use of anticoagulants
CPT/HCPCS: 36415; 70450; 71045; 80048; 80076; 82140; 83605; 83735; 83880; 84145; 84443; 84484; 85025; 85610; 86850; 86900; 86901; 87040 ×2; 87086; 87088; 93005; 96360; 96361; 99285; J7030; 81003; 81015

== ENCOUNTER 2018-03-27 19:52 | Observation (INO) | payer OTHER ==
--- OUTSIDE RECORDS SUMMARY | 2018-03-27 19:55 | XMS REPORT | Continuity of Care Document ---
[...] Triglycerides 85 mg/dL 35 - 160 02/28 [facility] Studies Level /2016 [facility] [place] [facility] Total 0.7 mg/dL 0.3 - 1.2 02/28 [facility] Studies Bilirubin /2016 [facility] [place] [facility] Sodium Level 142 mEq/L 135 - 145 02/28 [facility] Studies [facility] [place] [facility] Serum Total 5.6 g/dL 6.0 - 8.3 02/28 [facility]. Studies Protein /2016 [facility] [place] [facility] Potassium 4.0 mEq/L 3.6 - 5.0 02/28 [facility] Studies Level /2016 [facility] [place] [facility] LDL 138 02/28 [facility]. Studies Cholesterol, /2016 [facility] Calculated [place] [facility] HDL 64 mg/dL 29 - 89 02/28 [facility] Studies Cholesterol /2016 [facility] [place] [facility] Glucose Level 94 mg/dL 65 - 120 02/28 [facility] Studies /2016 [facility] [place] [facility] Globulin 2.5 g/dL 2.3 - 3.5 02/28 [facility] St[facility] Studies /2016 [facility] [place] [facility] Estimat 69 mL/min 90 02/28 [facility] St[facility] Studies Glomerular /2016 [facility] Filtration [place] Rate Laboratory Creatinine 0.81 mg/dL 0.44 - 02/28 [facility] St[facility] Studies 1.00 [facility] [place] [facility] Creatine 2.1 ng/ml 0.3 - 4.0 02/28 [facility] St[facility] Studies Kinase MB /2016 [facility] [place] [facility] Creatine 41 IU/L 22 - 269 02/28 [facility] Studies Kinase /2016 [facility] [place] [facility] Cholesterol/H 3.42 02/28 [facility] St[facility] Studies DL Ratio /2016 [facility] [place] [facility] Cholesterol 219 mg/dL 02/28 [facility] St[facility] Studies Level /2017 [facility] [place] [facility] Chloride 109 mEq/L 101 - 111 02/28 [facility] St[facility] Studies Level /2016 [facility] [place] [facility] Carbon 28 mEq/L 21 - 31 02/28 [facility] Studies Dioxide Level /2016 [facility] [place] [facility] Calcium Level 9.0 mg/dL 8.5 - 10.5 02/28 [facility] St[facility] Studies /2016 [facility] [place] [facility] Blood Urea 10 mg/dL 6 - 20 02/28 [facility]. Studies Nitrogen /2016 [facility] [place] [facility] Aspartate 22 IU/L 10 - 42 02/28 [facility]. Studies Amino Transf /2016 [facility] (AST/SGOT) [place] [facility] Alkaline 33 IU/L 42 - 121 02/28 [facility]. Studies Phosphatase /2016 [facility] [place] [facility] Albumin/Globu 1.2 1.1 - 1.8 02/28 [facility]. Studies velia Ratio /2016 [facility] [place] [facility] Albumin 3.1 g/dL 3.2 - 5.5 02/28 [facility]. Studies /2016 [facility] [place] [facility] Alanine 12 IU/L 10 - 60 02/28 [facility]. Studies Aminotransfer [facility] ase [place] (ALT/SGPT) Laboratory Troponin I null 02/28 [facility]. Studies /2016 [facility] [place] [facility] White Blood 6.4 K/uL 4.3 - 10.9 02/28 [facility]. Studies Count /2016 [facility] [place] [facility] Red Cell 14.0 % 12.1 - 02/28 [facility]. Studies Distribution 15.2 /2016 [facility] Width [place] [facility] Red Blood 3.55 M/uL 3.86 - 02/28 [facility]. Studies Count 4.86 /2016 [facility] [place] [facility] Platelet 175 K/uL 152 - 406 02/28 [facility]. Studies Count /2016 [facility] [place] [facility] Neutrophils % 48.0 % 41.7 - 02/28 [facility]. Studies 73.7 /2016 [facility] [place] [facility] Monocytes % 12.0 % 3.3 - 12.3 02/28 [facility]. Studies /2016 [facility] [place] [facility] Mean Platelet 9.5 fL 7.6 - 11.3 02/28 [facility]. Studies Volume /2016 [facility] [place] [facility] Mean 98.3 fL 80 - 100 02/28 [facility]. Studies Corpuscular /2016 [facility] Volume [place] [facility] Mean 33.7 g/dL 32.0 - 02/28 [facility]. Studies Corpuscular 36.0 /2016 [facility] Hemoglobin [place] Concent Laboratory Mean 33.2 pg 27.0 - 02/28 [facility]. Studies Corpuscular 35.0 /2016 [facility] Hemoglobin [place] [facility] Lymphocytes % 37.0 % 15.3 - 02/28 [facility] St[facility] Studies 44.8 /2016 [facility] [place] [facility] Hemoglobin 11.8 g/dL 12.0 - 02/28 [facility] St[facility] Studies 15.0 /2016 [facility] [place] [facility] Hematocrit 34.9 % 36.0 - 02/28 [facility]. Studies 45.0 /2016 [facility] [place] [facility] Eosinophils % 2.2 % 0 - 4.4 02/28 [facility] St[facility] Studies [facility] [place] [facility] Basophils % 0.8 % 0 - 1.3 02/28 [facility] Studies [facility] [place] [facility] Absolute 3.1 K/uL 1.8 - 8.0 02/28 [facility]. Studies Neutrophil [facility] [place] [facility] Absolute 0.8 K/uL 0.1 - 1.3 02/28 [facility]. Studies Monocytes [facility] (CBC) [place] [facility] Absolute 2.4 K/uL 0.7 - 4.9 02/28 [facility]. Studies Lymphocytes [facility] (CBC) [place] [facility] Absolute 0.1 K/uL 0 - 0.5 02/28 [facility]. Studies Eosinophils [facility] (CBC) [place] [facility] Absolute 0.1 K/uL 0 - 0.5 02/28 [facility]. Studies Basophils [facility] (CBC) [place] [facility] Rapid null 02/27 [facility]. Studies Troponin I /2016 [facility] [place] [facility] Prothrombin 11.4 9.5 - 12.5 02/27 [facility]. Studies Time SECONDS /2016 [facility] [place] [facility] INR 0.97 02/27 [facility]. Studies International /2016 [facility] Normalized [place] Ratio Laboratory Activated 27.2 24.3 - 02/27 [facility]. Studies Partial SECONDS 36.9 /2016 [facility] Thromboplast [place] Time Laboratory B-Type 135 pg/ml 02/27 [facility]. Studies Natriuretic [facility] Peptide [place] [facility] Magnesium 2.0 mg/dL 1.8 - 2.5 02/27 [facility]. Studies Level /2016 [facility] [place] [facility] Direct null 0 - 0.2 02/27 [facility] Studies Bilirubin /2016 [facility] [place] [facility] Sedimentation 16 mm/HR 0 - 30 12/23 [facility] Studies Rate, /2016 [facility] [place] [facility] C-Reactive null 12/23 [facility] Studies Protein /2016 [facility] [place] [facility] Urine WBC null 12/23 [facility] Studies [facility] [place] [facility] Urine null 12/23 [facility] Studies Squamous [facility] Epithelial [place] Cells Laboratory Urine RBC Urine RBC 12/23 [facility]. Studies /2016 [facility] [place] [facility] Urine Culture Urine 12/23 [facility] Studies Reflexed Culture /2016 [facility] Reflexed [place] [facility] Urine Urine 12/23 [facility] Studies Bacteria Bacteria /2016 [facility] [place] [facility] Urine pH 6.0 12/23 [facility] Studies [facility] [place] [facility] Urine 0.2 mg/dL 12/23 [facility] Studies Urobilinogen /2016 [facility] [place] [facility] Urine Total Urine Total 12/23 [facility] Studies Protein Protein /2016 [facility] [place] [facility] Urine Urine 12/23 [facility] Studies Specific Specific /2016 [facility] [place] Comstock [place] [facility] Urine Nitrite Urine 12/23 [facility] Studies Nitrite [facility] [place] [facility] Urine Urine 12/23 [facility] Studies Leukocyte Leukocyte /2016 [facility] Esterase Esterase [place] [facility] Urine Ketones Urine 12/23 [facility] Studies Ketones /2016 [facility] [place] [facility] Urine Glucose Urine 12/23 [facility] Studies Glucose /2016 [facility] [place] [facility] Urine Color Urine Color 12/23 [facility] Studies [facility] [place] [facility] Urine Blood Urine Blood 12/23 [facility] Studies [facility] [place] [facility] Urine Urine 12/23 [facility] Studies Bilirubin Bilirubin /2016 [facility] [place] [facility] Urine Urine 12/23 [facility] Studies Appearance Appearance /2016 [facility] [place] Vital Signs Vital Sign Value Date Comments Source Temperature Oral (F) 98 F 03/01/2017 [facility] [place] Heart Rate 58 03/01/2017 [facility] [place] Respitory Rate 18 03/01/2017 [facility] [place] Systolic (mm Hg) 135 03/01/2017 [facility] [place] Diastolic (mm Hg) 66 03/01/2017 [facility] [place] Height 61 02/27/2017 [facility] [place] Weight 100 02/27/2017 [facility] [place] Encounters Location Location Encounter Encounter Reason Attending ADM DC Status Source Details Type Number For Provider Date Date Visit [facility] Registered [id number] 12/[address] [facility] [place] [facility] Dep[facility]ed [id number] 01/04 01/[address] [facility] Emergency /[facility] [place] [facility] Discharged [id number] 02/27 03/[address] [facility]patient [facility]2016 [facility] [place] Out[facility] [id number] GRICELDA 11/23 Active [facility] /2018 [facility] Out[facility] [id number] GRICELDA 12/14 Active [facility] Outpatient [id number] GRICELDA 01/25 Active [facility] [place] Outpatient [id number] GRICELDA 03/08 Active [facility] [place] Outpatient [id number] GRICELDA 06/28 Active [facility] /[facility] [place] Procedures Procedure Code Date Perfomer Comments Source Head Brain Wo [id number] [facility] Cont [facility] [place] Abdomen & [id number] [facility] Pelvis W 7 [place] Contrast Chest Single [id number] [facility] View [facility] [place] Chest Single [id number] [facility] [place] Clarence Count [id number] [facility] [place] [id number] [facility] [place]
[2018-03-27 21:53] LABS: Absolute Monocytes 0.8 K/uL (0.1-1.3); Absolute Neutrophil 8.7 K/uL (1.8-8.0); Basophils % 0.3 % (0-1.3); Eosinophils % 0.2 % (0-4.4); Hematocrit 36.2 % (36.0-45.0); Lymphocytes % 9.5 % (15.3-44.8); MPV 9.6 fL (7.6-11.3); Monocytes % 7.2 % (3.3-12.3); RBC Red Blood Cell Count 3.71 M/uL (3.86-4.86)
[2018-03-27] MEDS ORDERED: ONDANSETRON 4 MG/2 ML VIAL ONE (21:54)
[2018-03-27] MEDS ORDERED: NA CHLORIDE 0.9% 1,000 ML ONE (21:54)
[2018-03-27 22:02] LABS: Protime INR 1.01
[2018-03-27 22:16] LABS: Albumin 3.4 g/dL (3.4-5.0); Bilirubin Direct 0.1 mg/dL (0-0.2); Bilirubin Total 0.3 mg/dL (0.2-1.0); Magnesium 2.5 mg/dL (1.8-2.4); Potassium 3.6 mmol/L (3.5-5.1); Troponin (Emerg Dept Use Only) 0.05 ng/mL (0.0-0.045)
--- NOTE | 2018-03-27 23:45 | EDPHYS ---
Physician Documentation [facility] Name: Lila Jenkins Age: 77 yrs Sex: Female : 1940 Arrival Date: 03/27/2018 Time: 19:54 Bed 23 Private MD: Rolo Kapadia B ED Physician Edd Ponce HPI: 03/27 23:55 This 77 yrs old Female presents to ER via Wheelchair with complaints of gs Vomiting, Weakness. 23:55 Onset: The symptoms/episode began/occurred today. Possible causes: unknown. The gs symptoms are aggravated by nothing. The symptoms are alleviated by nothing. Associated signs and symptoms: Pertinent positives: abdominal pain, EPIGASTRIC, Pertinent negatives: diarrhea. Severity of symptoms: At their worst the symptoms were severe in the emergency department the symptoms have resolved. It is unknown whether or not the patient has had similar symptoms in the past. The patient has not recently seen a physician. Historical: - Allergies: 20:51 No Known Allergies; bb - Home Meds: 20:51 propasenone 150 mg 150mg 1.5 tab three times a day for AFIB [Active]; galantamine oral bb oral [Active]; - PMHx: 20:51 Alzheimers; Atrial Fib; Bronchitis; GERD; upper GI bleed; UTI; bb - PSHx: 20:51 Hysterectomy; Cholecystectomy; bb - Immunization history:: Last tetanus immunization: unknown, Pneumococcal vaccine status is unknown, Flu vaccine status is unknown. - Social history:: Smoking status: Patient/guardian denies using tobacco. - Ebola Screening: : Patient negative for fever greater than or equal to 101.5 degrees Fahrenheit, and additional compatible Ebola Virus Disease symptoms Patient denies exposure to infectious person Patient denies travel to an Ebola-affected area in the 21 days before illness onset. ROS: 23:55 All other systems are negative. gs Exam: 23:55 Head/Face: Normocephalic, atraumatic. Eyes: Pupils equal round and reactive to light, gs extra-ocular motions intact. Lids and lashes normal. Conjunctiva and sclera are non-icteric and not injected. Cornea within normal limits. Periorbital areas with no swelling, redness, or edema. ENT: Nares patent. No nasal discharge, no septal abnormalities noted. Tympanic membranes are normal and external auditory canals are clear. Oropharynx with no redness, swelling, or masses, exudates, or evidence of obstruction, uvula midline. Mucous membranes moist. Neck: Trachea midline, no thyromegaly or masses palpated, and no cervical lymphadenopathy. Supple, full range of motion without nuchal rigidity, or vertebral point tenderness. No Meningismus. Chest/axilla: Normal chest wall appearance and motion. Nontender with no deformity. No lesions are appreciated. Cardiovascular: Regular rate and rhythm with a normal S1 and S2. No gallops, murmurs, or rubs. Normal PMI, no JVD. No pulse deficits. Respiratory: Lungs have equal breath sounds bilaterally, clear to auscultation and percussion. No rales, rhonchi or wheezes noted. No increased work of breathing, no retractions or nasal flaring. Back: No spinal tenderness. No costovertebral tenderness. Full range of motion. Skin: Warm, dry with normal turgor. Normal color with no rashes, no lesions, and no evidence of cellulitis. MS/ Extremity: Pulses equal, no cyanosis. Neurovascular intact. Full, normal range of motion. Neuro: Awake and alert, GCS 15, oriented to person, place, time, and situation. Cranial nerves II-XII grossly intact. Motor strength 5/5 in all extremities. Sensory grossly intact. Cerebellar exam normal. Normal gait. 23:55 Constitutional: The patient appears alert, awake. 23:55 ECG was reviewed by the Attending Physician. 23:55 Abdomen/GI: Palpation: mild abdominal tenderness, in the epigastric area. Vital Signs: 20:35 BP 205 / 92; Pulse 80; Resp 18; Temp 97.8(O); Pulse Ox 98% on R/A; Weight 46.72 kg (R); fc Height 5 ft. 2 in. (157.48 cm) (R); Pain 0/10; 20:58 BP 145 / 72; Pulse 81; Resp 16; Pulse Ox 98% on R/A; la1 21:42 BP 130 / 69; Pulse 71; Resp 16; Pulse Ox 98% on R/A; la1 22:11 BP 135 / 65; Pulse 64; Resp 20; Pulse Ox 99% on R/A; Pain 0/10; fc 23:11 BP 123 / 56; Pulse 66; Resp 18; Pulse Ox 97% on R/A; Pain 0/10; 03/28 00:03 BP 133 / 67; Pulse 66; Resp 18; Temp 98.0; Pulse Ox 96% ; Pain 0/10; 03/27 20:35 Body Mass Index 18.84 (46.72 kg, 157.48 cm) MDM: 03/27 21:29 Patient medically screened. 23:55 Differential diagnosis: Nonspecific abd pain, gastritis, pancreatitis, uti,cad. Data gs reviewed: vital signs, nurses notes. Data reviewed: lab test result(s), EKG, radiologic studies. Response to treatment: the patient's symptoms have markedly improved after treatment, and as a result, I will admit patient. 03/27 21:36 Order name: Basic Metabolic Panel; Complete Time: 22:44 03/27 21:36 Order name: CBC with Diff; Complete Time: 22:44 03/27 21:36 Order name: LFT's; Complete Time: 22:44 03/27 21:36 Order name: Magnesium; Complete Time: 22:44 03/27 21:36 Order name: NT PRO-BNP; Complete Time: 22:44 03/27 21:36 Order name: PT-INR; Complete Time: 22:44 03/27 21:36 Order name: Troponin (emerg Dept Use Only); Complete Time: 22:44 03/27 21:36 Order name: XRAY Chest (1 view) 03/27 21:36 Order name: Lipase; Complete Time: 22:44 03/27 23:19 Order name: Blood Culture* 03/27 23:19 Order name: Urine Culture 03/27 23:19 Order name: Urine Microscopic Only; Complete Time: 23:58 03/27 23:20 Order name: Urine Dipstick--Ancillary (enter results) 03/27 21:36 Order name: EKG; Complete Time: 21:37 03/27 21:36 Order name: Cardiac monitoring; Complete Time: 21:42 03/27 21:36 Order name: EKG - Nurse/Tech; Complete Time: 21:42 03/27 21:36 Order name: IV Saline Lock; Complete Time: 21:42 03/27 21:36 Order name: Labs collected and sent; Complete Time: 21:42 03/27 21:36 Order name: O2 Per Protocol; Complete Time: 21:42 gs 03/27 21:36 Order name: O2 Sat Monitoring; Complete Time: 21:42 gs 03/27 23:19 Order name: Urine Dipstick-Ancillary (obtain specimen); Complete Time: 23:22 gs EC:55 Rate is 60 beats/min. Rhythm is regular. NM interval is normal. QRS interval is normal. gs Q waves are Old in leads V1, V2. Clinical impression: Abnormal EKG without significant change. Interpreted by me. Administered Medications: 21:49 Drug: Zofran 4 mg Route: IVP; Site: right antecubital; la1 23:12 Follow up: Response: No adverse reaction; Nausea is decreased 21:49 Drug: NS 0.9% 750 ml Route: IV; Rate: 1 bolus; Site: right antecubital; la1 23:00 Follow up: Response: No adverse reaction; Marked relief of symptoms; IV Status: fc Completed infusion; IV Intake: 750ml 03/28 00:00 Drug: Rocephin - (cefTRIAXone) 1 grams Route: IVPB; Infused Over: 30 mins; Site: right fc antecubital; 00:10 Follow up: Response: No adverse reaction; No change in condition; IV Status: Completed fc infusion; IV Intake: 10ml ; was mixed in 10 ml of NS Disposition: 03/27/18 23:44 Hospitalization ordered by Anna Cote for Observation. Preliminary diagnosis are Epigastric pain, Cystitis. - Bed requested for Telemetry/MedSurg (observation). - Status is Observation. fc - Condition is Stable. - Problem is new. - Symptoms have improved. UTI on Admission? Yes Critical care time excluding procedures: 03/27 23:55 Critical care time: Bedside Care: 10 minutes, Consultation: 10 minutes, Family gs Intervention: 10 minutes. Total time: 30 minutes Signatures: Dispatcher [employer] UDAYNM Yuli England RN RN mw Chretien, Felicia, RN RN fc Ballard, Brenda, RN RN bb Attema, Lee, RN RN la1 Starr, Gregory, MD MD Corrections: (The following items were deleted from the chart) 23:47 23:44 Hospitalization Ordered by Anna Cote MD for Observation. Preliminary mw diagnosis is Epigastric pain; Cystitis. Bed requested for Telemetry/MedSurg (observation). Status is Observation. Condition is Stable. Problem is new. Symptoms have improved. UTI on Admission? Yes. 03/28 00:59 03/27 23:47 03/27/2018 23:44 Hospitalization Ordered by Anna Cote MD for fc Observation. Preliminary diagnosis is Epigastric pain; Cystitis. Bed requested for Telemetry/MedSurg (observation). Status is Observation. Condition is Stable. Problem is new. Symptoms have improved. UTI on Admission? Yes. mw
--- NOTE | 2018-03-27 23:45 | ER ---
Nurse's Notes [facility] Name: Lila Jenkins Age: 77 yrs Sex: Female : 1940 Arrival Date: 03/27/2018 Time: 19:54 Bed 23 Private MD: Rolo Kapadia B Diagnosis: Epigastric pain;Cystitis Presentation: 03/27 20:35 Presenting complaint: Child states: that when she went to check on pt that pt was on fc the floor vomiting. Pt is weak and having high blood pressure. She is concerned that maybe pt is not taking her medications for her bp right. Transition of care: patient was not received from another setting of care. Onset of symptoms was March 27, 2018. Risk Assessment: Do you want to hurt yourself or someone else? Patient reports no desire to harm self or others. Initial Sepsis Screen: Does the patient meet any 2 criteria? Systolic BP < 90 mmHg. Yes Does the patient have a suspected source of infection? No. Patient's initial sepsis screen is negative. Care prior to arrival: None. 20:35 Method Of Arrival: Wheelchair fc 20:35 Acuity: MAREN 3 fc Historical: - Allergies: 20:51 No Known Allergies; bb - Home Meds: 20:51 propasenone 150 mg 150mg 1.5 tab three times a day for AFIB [Active]; galantamine oral bb oral [Active]; - PMHx: 20:51 Alzheimers; Atrial Fib; Bronchitis; GERD; upper GI bleed; UTI; bb - PSHx: 20:51 Hysterectomy; Cholecystectomy; bb - Immunization history:: Last tetanus immunization: unknown, Pneumococcal vaccine status is unknown, Flu vaccine status is unknown. - Social history:: Smoking status: Patient/guardian denies using tobacco. - Ebola Screening: : Patient negative for fever greater than or equal to 101.5 degrees Fahrenheit, and additional compatible Ebola Virus Disease symptoms Patient denies exposure to infectious person Patient denies travel to an Ebola-affected area in the 21 days before illness onset. Screenin:48 Abuse screen: Denies threats or abuse. Nutritional screening: No deficits noted. fc Tuberculosis screening: No symptoms or risk factors identified. Fall Risk Fall in past 12 months (25 points). Secondary diagnosis (15 points) Alzheimer's, No IV (0 pts). Ambulatory Aid- Crutches/Cane/Walker (15 pts). Gait- Weak (10 pts.). Mental Status- Overestimates/Forgets Limitations (15 pts.). Total Agu[place] Fall Scale indicates High Risk Score (45 or more points). Fall prevention measures have been instituted. Side Rails Up X 2 Placed Close to Nursing Station Frequent Obs/Assessments Occuring Family Present and informed to notify staff if the need to leave the bedside As available patient and family educated on Fall Prevention Program and Strategies. Assessment: 20:58 General: Appears in no apparent distress. Behavior is calm, cooperative. Pain: Denies la1 pain. Neuro: Level of Consciousness is awake, alert, obeys commands, Oriented to person, situation, Facial symmetry appears normal. Cardiovascular: Heart tones S1 S2 present Capillary refill < 3 seconds Patient's skin is warm and dry. Respiratory: Airway is patent Respiratory effort is even, unlabored, Respiratory pattern is regular, symmetrical, Breath sounds are clear bilaterally. GI: Abdomen is round non-distended, Bowel sounds present X 4 quads. Abd is soft and non tender X 4 quads. Parent/caregiver reports the patient having nausea, vomiting. : No signs and/or symptoms were reported regarding the genitourinary system. 22:11 Reassessment: Pt resting quietly at this time. No change in overall condition. fc 23:00 Reassessment: No changes from previously documented assessment. Patient and/or family fc updated on plan of care and expected duration. Pain level reassessed. Patient is alert, oriented x 3, equal unlabored respirations, skin warm/dry/pink. Assisted up to bathroom. Pt ambulated with no problems. States that she is feeling better. 23:30 Reassessment: has decided to admit pt. urine sent to lab for culture and laborer steel handling fc coming to draw blood cultures. 23:33 Reassessment: Riddhi pts daughter [phone] notified of pts admission. fc 03/28 00:02 Reassessment: No changes from previously documented assessment. Patient and/or family fc updated on plan of care and expected duration. Pain level reassessed. Patient is alert, oriented x 3, equal unlabored respirations, skin warm/dry/pink. Pt notified of her admission. Vital Signs: 03/27 20:35 BP 205 / 92; Pulse 80; Resp 18; Temp 97.8(O); Pulse Ox 98% on R/A; Weight 46.72 kg (R); fc Height 5 ft. 2 in. (157.48 cm) (R); Pain 0/10; 20:58 BP 145 / 72; Pulse 81; Resp 16; Pulse Ox 98% on R/A; la1 21:42 BP 130 / 69; Pulse 71; Resp 16; Pulse Ox 98% on R/A; la1 22:11 BP 135 / 65; Pulse 64; Resp 20; Pulse Ox 99% on R/A; Pain 0/10; fc 23:11 BP 123 / 56; Pulse 66; Resp 18; Pulse Ox 97% on R/A; Pain 0/10; fc 03/28 00:03 BP 133 / 67; Pulse 66; Resp 18; Temp 98.0; Pulse Ox 96% ; Pain 0/10; fc 03/27 20:35 Body Mass Index 18.84 (46.72 kg, 157.48 cm) ED Course: 03/27 19:54 Patient arrived in ED. es 19:55 Rolo Kapadia MD is Private Physician. es 20:35 Arm band placed on Patient placed in an exam room, on a stretcher. fc 20:47 Triage completed. fc 20:48 Patient has correct armband on for positive identification. Bed in low position. Call light in reach. Side rails up X 1. 20:58 Dimas Moore, RANJEET is Primary Nurse. la1 21:20 Edd Ponce MD is Attending Physician. gs 21:49 Inserted saline lock: 22 gauge in right antecubital area, using aseptic technique. la1 Blood collected. 22:53 XRAY Chest (1 view) In Process Unspecified. EDMS 23:43 Anna Cote MD is Hospitalizing Provider. gs 03/28 00:02 No provider procedures requiring assistance completed. fc 00:32 Patient admitted, IV remains in place. fc Administered Medications: 03/27 21:49 Drug: Zofran 4 mg Route: IVP; Site: right antecubital; la1 23:12 Follow up: Response: No adverse reaction; Nausea is decreased fc 21:49 Drug: NS 0.9% 750 ml Route: IV; Rate: 1 bolus; Site: right antecubital; la1 23:00 Follow up: Response: No adverse reaction; Marked relief of symptoms; IV Status: fc Completed infusion; IV Intake: 750ml 03/28 00:00 Drug: Rocephin - (cefTRIAXone) 1 grams Route: IVPB; Infused Over: 30 mins; Site: right fc antecubital; 00:10 Follow up: Response: No adverse reaction; No change in condition; IV Status: Completed fc infusion; IV Intake: 10ml ; was mixed in 10 ml of NS Intake: 03/27 23:00 IV: 750ml; Total: 750ml. fc 03/28 00:10 IV: 10ml; Total: 760ml. fc Outcome: 03/27 23:44 Decision to Hospitalize by Provider. 03/28 00:31 Admitted to Tele accompanied by tech, via wheelchair, room 201, with chart, Report fc called to Elaine POLLACK Condition: good Discharge instructions given to patient, family, Instructed on the need for admit, Demonstrated understanding of instructions. 00:59 Patient left the ED. fc Signatures: Dispatcher [employer] Tisha Tate Felicia, RN RN Tamra Crow RN RN bb Dimas Moore RN RN la1 Edd Ponce MD MD
[2018-03-27 23:46] LABS: Urine Blood TRACE (NEG); Urine Glucose NEGATIVE (NEG); Urine Protein NEGATIVE (NEG); Urine Specific Gravity 1.015 (1.005-1.030)
[2018-03-27] MEDS ORDERED: CEFTRIAXONE/SWI 1gm 1 GM/10 ML SYR ONE (23:50)
[2018-03-27 23:56] LABS: Urine Bacteria >50 /HPF (<20); Urine Culture Reflex Order NOT NEEDED; Urine RBC <5 /HPF (NONE SEEN)
[2018-03-28] MEDS ORDERED: ONDANSETRON 4 MG/2 ML VIAL IV PRN (00:51)
[2018-03-28] MEDS: NA CHLORIDE 0.9% 1,000 ML IV SCH ×3 (01:14→20:51)
--- NOTE | 2018-03-28 04:50 | P.HP ---
Certification for Inpatient Patient admitted to: Observation With expected LOS: <2 Midnights Practitioner: I am a practitioner with admitting privileges, knowledge of patient current condition, hospital course, and medical plan of care. Services: Services provided to patient in accordance with Admission requirements found in Title 42 Section 412.3 of the Code of Federal Regulations Patient History Date of Service: 03/28/18 Reason for admission: UTI History of Present Illness: Ms Jenkins is a 77 years old woman with history of HTN, Dementia, A.Fib, who lives by herself. Today, her family, founde the patient laying on the floor of her house. She had nuasea and vomiting associated with abdominal pain. The patient was also hyepertensive. Family is concern that she is possible not taking her medication as indicated. No history of fever or chills. At arrival the patient was confused (baseline), afebrile, BP 205/92, without focal deficit. Lab work shows normal WBC count, elevated troponin I, EKG shows SR with RBBB, possible septal infarct of undermined age. UA is abnormal consistent with UTI. Allergies No Known Allergies Allergy (Verified 03/28/18 00:14) Home Medications: Propafenone [Rythmol*] 225 mg PO TID #90 tab 03/01/17 Galantamine HBr [Galantamine ER] 8 mg PO DAILY 03/28/18 - Past Medical/Surgical History Has patient received pneumonia vaccine in the past: Yes Diabetic: No -: Atrial fibrillation -: UTI -: Mass on liver/unknown -: Bronchitis -: GERD -: Upper GI Bleed -: Hip pain -: Cholecystectomy -: Hysterectomy - Family History Family History: Reviewed- Non-Contributory - Social History Smoking Status: Never smoker Alcohol use: No CD- Drugs: No Caffeine use: Yes Place of Residence: Home Review of Systems 10-point ROS is otherwise unremarkable Physical Examination - Vital Signs Temperature: 97.6 F Blood Pressure: 137/83 Pulse: 65 Respirations: 16 Pulse Ox (%): 95 - Physical Exam General: Alert, In no apparent distress, Demented, Confused HEENT: Atraumatic, PERRLA, Mucous membr. moist/pink, EOMI, Sclerae nonicteric Neck: Supple, 2+ carotid pulse no bruit, No LAD, Without JVD or thyroid abnormality Respiratory: Clear to auscultation bilaterally, Normal air movement Cardiovascular: Regular rate/rhythm, Normal S1 S2 Gastrointestinal: Normal bowel sounds, Tenderness (tender to palpation on lower abdomen) Musculoskeletal: No tenderness Integumentary: No rashes Neurological: Normal speech, Normal strength at 5/5 x4 extr, Normal tone, Normal affect Lymphatics: No axilla or inguinal lymphadenopathy - Studies Laboratory Data (last 24 hrs) 03/27/18 21:40: PT 11.9, INR 1.01 03/27/18 21:40: WBC 10.5 D, Hgb 12.7, Hct 36.2, Plt Count 243 03/27/18 21:40: Sodium 140, Potassium 3.6, BUN 16, Creatinine 0.96, Glucose 118 H, Magnesium 2.5 H, Total Bilirubin 0.3, AST 25, ALT 24, Alkaline Phosphatase 55 , Lipase 156 Assessment and Plan - Problems (Diagnosis) (1) Dementia Current Visit: Yes Status: Acute Qualifiers: Dementia type: Alzheimer's disease Alzheimer's disease onset: unspecified onset Dementia behavioral disturbance: with behavioral disturbance Qualified Code(s): G30.9 - Alzheimer's disease, unspecified; F02.81 - Dementia in other diseases classified elsewhere with behavioral disturbance (2) Urinary tract infectious disease Current Visit: No Status: Acute Qualifiers: Urinary tract infection type: acute cystitis Hematuria presence: without hematuria Qualified Code(s): N30.00 - Acute cystitis without hematuria (3) Atrial fibrillation Onset Date: 03/01/17 Current Visit: No Status: Chronic Qualifiers: Atrial fibrillation type: chronic Qualified Code(s): I48.2 - Chronic atrial fibrillation (4) Hypertension Onset Date: 03/01/17 Current Visit: No Status: Chronic Qualifiers: Hypertension type: essential hypertension Qualified Code(s): I10 - Essential (primary) hypertension - Plan The patient will be admitted to the hospital due to UTI. She was also hypertensive at arrival, but BP gradually decreased. Will order empiric treatment with IV Rocephin, blood and urine culture are in process. Order Fall precautions. - Advance Directives Does patient have a Living Will: No Does patient have a Durable POA for Healthcare: No - Code Status/Comfort Care Code Status Assessed: Yes Code Status: Full Code
[2018-03-28 06:19] LABS: Absolute Lymphocytes (CBC) 1.9 K/uL (0.7-4.9); Absolute Monocytes 1.2 K/uL (0.1-1.3); Absolute Neutrophil 5.8 K/uL (1.8-8.0); Basophils % 0.9 % (0-1.3); Eosinophils % 0.5 % (0-4.4); Lymphocytes % 20.8 % (15.3-44.8); MPV 9.8 fL (7.6-11.3); Monocytes % 13.4 % (3.3-12.3); RBC Red Blood Cell Count 3.46 M/uL (3.86-4.86)
[2018-03-28 06:37] LABS: Potassium 3.7 mmol/L (3.5-5.1)
--- NOTE | 2018-03-28 07:38 | EKG ---
Test Date: 2018-03-27 Test Time: 21:30:46 Supervisor [place]: [place] MEASUREMENT RESULTS: Intervals: Rate: 60 MO: 160 QRSD: 100 QT: 442 QTc: 442 [place]: P: 71 MO: 160 QRS: 20 T: 62 INTERPRETIVE STATEMENTS: Normal sinus rhythm Incomplete right bundle branch block Septal infarct, age undetermined Abnormal ECG Compared to ECG 03/19/2018 06:52:30 Incomplete right bundle-branch block now present Myocardial infarct finding now present First degree AV block no longer present Electronically Signed On 03-28-18 07:37:32 BOBBIN PRESSER by Kaleb Joseph
[2018-03-28] MEDS ORDERED: CEFTRIAXONE 1 GM/NS 50 ML 1 GM/50 ML BAG IV SCH (09:00)
[2018-03-28] MEDS: GALANTAMINE HBR 8 MG PO SCH (09:00)
[2018-03-28] MEDS ORDERED: POTASSIUM CL SA 10 MEQ TAB PO ONE (09:00)
[2018-03-28] MEDS: ENOXAPARIN 40 MG/0.4 ML SQ SCH (09:12)
[2018-03-28] MEDS: CEFTRIAXONE/SWI 1gm 1 GM/10 ML SYR IV SCH (09:12)
[2018-03-28] MEDS: PROPAFENONE HCL 150 MG TAB PO SCH ×3 (09:20→21:12)
--- NOTE | 2018-03-28 09:38 | RAD REPORT ---
EXAM DESCRIPTION: RAD - Chest Single View - 03/27/2018 10:53 pm CLINICAL HISTORY: MALAISE Chest pain. COMPARISON: Chest Single View dated 03/19/2018; Chest Single View dated 06/16/2017; Chest Single View dated 02/27/2017; Chest Single View dated 01/04/2017 FINDINGS: Portable technique limits examination quality. The lungs are mildly emphysematous but clear. The heart is normal in size. No displaced fractures. IMPRESSION: No acute intrathoracic process suspected. Mild COPD.
[2018-03-28] MEDS ORDERED: REGADENOSON 0.4 MG/5 ML SYR IV ONE (10:13)
[2018-03-28] MEDS ORDERED: GUAIFENESIN/CODEINE 5ML UCUP PO PRN (11:33)
--- NOTE | 2018-03-28 11:44 | PN ---
Date of Progress Note: 03/28/2018 Subjective: Patient seen and examined. Chart reviewed and case discussed with RN. The patient stat es her pain is significantly better. Review of Systems: Negative except as above. Code Status: Full code. Medications: List reviewed. Physical Examination: Vital Signs: Temperature 97.8, heart rate 64, blood pressure 125/65, respirations 16, O2 95% on room air. General: Awake, alert, oriented x3. Elderly female, demented, oriented x2, not in any acute distres s, frail, cachectic. BMI 18. CV: S1, S2. Peripheral pulses present. Regular rate and rhythm. Respiratory: Moving air well bilaterally. No wheezing. Gastrointestinal: Abdomen is soft, nontender, nondistended. Positive bowel sounds. Extremities: No clubbing, cyanosis, or edema. Neuro: Cranial nerves 2 through 12 intact grossly. No focal neurological deficit. Speech is normal . Skin: No rashes. Normal skin turgor. Laboratory Data: Sodium 145, potassium 3.7, chloride 112, CO2 26, BUN 12, creatinine 0.82, glucose 9 4, calcium 7.9. Troponin 0.05, 0.10, 0.06. WBC 9, H and H 11.6/34, platelets 241, neutrophils 64%. EKG shows normal sinus rhythm, incomplete right bundle branch block, septal infarct, age undetermined , rate of 60. Assessment And Plan: A 77-year-old female with, 1.Urinary tract infection, acute cystitis without hematuria. We will continue with IV antibiotics. Follow up on cultures. 2.Atrial fibrillation, chronic. We will resume home medications. The patient is not on any anticoa gulation. Does take antiarrhythmic. 3.Elevated troponin level; may be related to demand mismatch. No chest pain. EKG does not show any acute ST changes. 4.Incomplete right bundle-branch block. 5.Essential hypertension, not well controlled. Medications have been adjusted. 6.Alzheimer's dementia with behavioral disturbance, early onset. The patient lives alone, was found down in her house by family members. We will resume home medications. 7.Gastrointestinal and deep venous thrombosis prophylaxis addressed. Plan: Follow up on urine culture. Cardiology evaluation pending. Continue with PT. We will have s ocial worker visit with the patient regarding home situation; may benefit from SNF depending on PT ev al. SA/MODL Voice ID: [id number] Report ID: [id number]
--- NOTE | 2018-03-28 13:57 | RAD REPORT ---
EXAM DESCRIPTION: NM - Rest Stress Cardiac Imaging - 03/28/2018 1:50 pm CLINICAL HISTORY: Chest pain COMPARISON: None. TECHNIQUE: The patient was administered approximately 10 mCi of Tc 99m Sestamibi prior to resting SP ECT imaging of the heart. The patient was then administered approximately 30 mCi of Tc 99m Sestamibi following exercise or pharmacologic stress. Multiplanar SPECT images were reviewed. FINDINGS: The end diastolic volume is 83 ml, the end systolic volume is 32 ml, and the ejection frac tion is 61 %. No areas of stress-induced ischemia confirmed. Minimal diminished activity seen in the midportion of the anterior wall and the midportion of the inferior wall. Neither area shows significant difference between rest and stress imaging. These could be small areas of scarring or attenuation artifact. IMPRESSION: No stress-induced ischemia. Minimal areas of fixed diminished activity mid anterior wall and mid inferior wall. These could be ar eas of scarring, attenuation artifact or a combination. Ventricular volumes and ejection fraction are normal range.
--- NOTE | 2018-03-28 14:20 | CON ---
History Of Present Illness: A 77-year-old woman with a history of dementia, hypertension, atrial fib rillation. She was found on the floor of her house by her family. She had nausea and vomiting. The re was a loss of consciousness, but there was a lot of weakness. She was hypertensive. She has a hi story of poor medical compliance. The family was worried that she was not taking her medicines appro priately. Her medicines are propafenone 225 t.i.d. and galantamine 8 mg daily. She has a history of upper GI bleed, cholecystectomy, hysterectomy, multigravid. Since being in the hospital, her EKGs a nd rhythm strips show sinus rhythm, incomplete right bundle, possible old septal infarct. The septal infarct finding is new and could be a true infarct versus lead placement abnormality. There are nor mal looking R-waves in V3 and 4. So, it is certainly possible it is just an anomalous EKG finding. She has chest pain. She seems to have chest pain pretty much all the time. She was in our hospital for similar complaint roughly 1 year ago. At that time, a nuclear stress test was normal that was do ne in my office. The echocardiogram likewise was normal. The patient's troponins back then were les s than 0.03 and other 0.1 and 0.06. Physical Examination: Vital Signs: The patient is 5 feet 2, 103 pounds. Blood pressure 125/65, O2 saturation 95% on room air. Denies having any pain presently in the chest. HEENT: Normal. Lungs: Clear. Cardiac: Within normal limits. No friction and rub are present. Medications are propafenone 225 t.i.d., Lovenox, ceftriaxone. I think she is getting ceftriaxone bec ause of suspected urinary tract infection. I have a culture proved infection, but her urine seems to have findings consistent with pyuria. I would recommend the patient do an echo and nuclear stress test again to see if this is truly CAD or not. SHELBY/BENNYL Voice ID: [id number] Report ID: [id number]
[2018-03-28] MEDS: ACETAMINOPHEN 500 MG TAB PO PRN (16:05)
[2018-03-28 20:44] VITALS: O2SAT 96
[2018-03-29] MEDS: PROPAFENONE HCL 150 MG TAB PO SCH ×4 (05:50→16:53)
[2018-03-29 06:22] LABS: Absolute Lymphocytes (CBC) 1.2 K/uL (0.7-4.9); Absolute Monocytes 0.6 K/uL (0.1-1.3); Absolute Neutrophil 3.1 K/uL (1.8-8.0); Eosinophils % 1.8 % (0-4.4); Hematocrit 36.9 % (36.0-45.0); Lymphocytes % 23.4 % (15.3-44.8); MPV 9.8 fL (7.6-11.3); RBC Red Blood Cell Count 3.76 M/uL (3.86-4.86)
[2018-03-29 06:42] LABS: Potassium 4.1 mmol/L (3.5-5.1)
[2018-03-29] MEDS: NA CHLORIDE 0.9% 1,000 ML IV SCH ×2 (06:51→14:39)
[2018-03-29 07:49] VITALS: BMI 18.8
--- NOTE | 2018-03-29 07:56 | TREADPHA ---
DX: CHEST PAIN Date of Study: 03/28/2018 Ht: 5 2 Wt: 103 lb 0 oz Consulting Physician: DUDLEY MEDICATIONS: TYLENOL, LOVENOX, RYTHMOL HISTORY: 77 YEAR FEMALE. CC- VOMITING, WEAKNESS. HISTORY: ALZHEIMERS, ATRIAL FIBRILLATION, BRONCHITIS, GERD, GI BLEED, UTI. NON-SMOKER, NON-DRINKER. PHYSICIAL EXAMINATION: RESTING B.P.: 148/71 RESTING H.R.: 57 RESTING EKG: SINUS BRADYCARDIA, OTHERWISE NORMAL. PROTOCOL: LEXISCAN EXERCISE TIME: 3:30 B.P. AT PEAK STRESS: 127/62 IMPRESSION: LEXISCAN INJECTED, FOLLOWED BY CARDIOLITE PER PROTOCOL. SEE NUCLEAR MEDICINE REPORT. NO SUPRAVENTRICULAR TACHYCARDIA. NO VENTRICULAR TACHYCARDIA. NO PREMATURE ATRIAL CONTRACTIONS. NO PREMATURE VENTRICULAR CONTRACTIONS. PATIENT REPORTED NO CHEST PAIN, PRESSURE, TIGHTNESS THROUGHOUT PROCEDURE. NON-DIAGNOSTIC ELECTROCARDIOGRAM WITH LEXISCAN STRESS.
[2018-03-29] MEDS: GALANTAMINE HBR 8 MG PO SCH (09:00)
[2018-03-29] MEDS ORDERED: AMOX/K CLAV 875 MG TAB PO SCH (09:00)
[2018-03-29] MEDS: ACETAMINOPHEN 500 MG TAB PO PRN ×2 (09:29→15:05)
[2018-03-29] MEDS: CEFTRIAXONE/SWI 1gm 1 GM/10 ML SYR IV SCH (09:30)
[2018-03-29] MEDS: ENOXAPARIN 40 MG/0.4 ML SQ SCH (09:30)
--- NOTE | 2018-03-29 10:54 | ECHO ---
HEIGHT: 5 ft 2 in WEIGHT: 103 lb 0 oz DATE OF STUDY: 03/28/[address]: Kaleb Joseph MD 2-DIMENSIONAL: YES M.MODE: YES DOPPLER: YES COLOR FLOW: YES TDS: PORTABLE: DEFINITY: BUBBLE STUDY: DIAGNOSIS: CHEST PAIN CARDIAC HISTORY: CATHERIZATION: NO SURGERY: NO PROSTHETIC VALVE: NO PACEMAKER: NO MEASUREMENTS (cm) DIASTOLIC (NORMALS) SYSTOLIC (NORMALS) IVSd 0.9 (0.6-1.2) LA Diam 3.0 (1.9-4.0) LVEF 66% LVIDd 4.4 (3.5-5.7) LVIDs 2.8 (2.0-3.5) %FS 36% LVPWd 0.8 (0.6-1.2) Ao Diam 3.3 (2.0-3.7) 2 DIMENSIONAL ASSESSMENT: RIGHT ATRIUM: NORMAL LEFT ATRIUM: NORMAL RIGHT VENTRICLE: NORMAL LEFT VENTRICLE: NORMAL TRICUSPID VALVE: NORMAL MITRAL VALVE: NORMAL PULMONIC VALVE: NORMAL AORTIC VALVE: NORMAL PERICARDIAL EFFUSION: NONE AORTIC ROOT: NORMAL LEFT VENTRICULAR WALL MOTION: DOPPLER/COLOR FLOW: MILD AORTIC REGURGITATION, MITRAL REGURGITATION, AND TRICUSPID REGURGITATION. NORMAL RIGHT VENTRICULAR SYSTOLIC PRESSURE. COMMENTS: NORMAL TWO DIMENSIONAL ECHOCARDIOGRAM. MILD AORTIC REGURGITATION, MITRAL REGURGITATION, AND TRICUSPID REGURGITATION. TECHNOLOGIST: TRUMAN ANDRADE
--- NOTE | 2018-03-29 18:06 | P.PN ---
Subjective Date of Service: 03/29/18 Chief Complaint: UTI Subjective: No new changes, No C/O voiced, Improving Patient seen and examined at bedside. Daughter at bedside. Chart reviewed and case discussed with nursing staff. Review of Systems 10-point ROS is otherwise unremarkable Physical Examination - Vital Signs Temperature: 98.1 F Blood Pressure: 140/67 Pulse: 61 Respirations: 20 Pulse Ox (%): 96 - Physical Exam General: Alert, In no apparent distress, Oriented x2, Cachectic HEENT: Atraumatic, PERRLA, EOMI Neck: Supple, JVD not distended Respiratory: Clear to auscultation bilaterally, Normal air movement Cardiovascular: Regular rate/rhythm, Normal S1 S2 Gastrointestinal: Normal bowel sounds, No tenderness Musculoskeletal: No tenderness Integumentary: No rashes Neurological: Normal speech, Normal tone, Normal affect - Studies Sodium 144, potassium 4.1, chloride 110, CO2 28, BUN 15, creatinine 0.91, blood sugar 68. WBC count 5, H&H 12.6 and 36.9, platelets 247 Microbiology Data (last 24 hrs): 03/27/18 23:43 Blood - Blood Anaerobic Blood Culture - Final 03/29/2018: Urine cultures still pending Medications List Reviewed: Yes Assessment And Plan - Plan A 77-year-old female with, Urinary tract infection, acute cystitis without hematuria. We will continue with IV antibiotics. Follow up on cultures, still pending. Atrial fibrillation, chronic. We will resume home medications. The patient is not on any anticoagulation. Does take antiarrhythmic. Elevated troponin level; may be related to demand mismatch. No chest pain. EKG does not show any acute ST changes. Negative nuclear stress test and normal echo. No further cardiac evaluation at this time. Incomplete right bundle-branch block. Essential hypertension, not well controlled. Medications have been adjusted. Alzheimer's dementia with behavioral disturbance, early onset. The patient lives alone, was found down in her house by family members. We will resume home medications. Gastrointestinal and deep venous thrombosis prophylaxis addressed. Plan: Follow up on urine culture. Continue with PT. Social work involved, patient's daughter already working on nursing home facility placement for patient. This would be done once patient is discharged from here. Upon discharge from the hospital: Patient will be going home with the daughter. .
[2018-03-29] MEDS ORDERED: TRAZODONE 50 MG TABLET PO PRN (18:10)
[2018-03-30] MEDS: NA CHLORIDE 0.9% 1,000 ML IV SCH (02:36)
--- NOTE | 2018-03-30 07:56 | EKG ---
Test Date: 2018-03-29 Test Time: 23:12:23 Clothing Worker: RT MEASUREMENT RESULTS: Intervals: Rate: 77 UT: 194 QRSD: 102 QT: 418 QTc: 473 [place]: P: 67 UT: 194 QRS: -7 T: 51 INTERPRETIVE STATEMENTS: Normal sinus rhythm Normal ECG Compared to ECG 03/27/2018 21:30:46 Incomplete right bundle-branch block no longer present Myocardial infarct finding no longer present Electronically Signed On 03-30-18 07:55:59 HONE OPERATOR by Kaleb Joseph
[2018-03-30] MEDS: PROPAFENONE HCL 150 MG TAB PO SCH (09:00)
[2018-03-30] MEDS: ENOXAPARIN 40 MG/0.4 ML SQ SCH (10:44)
[2018-03-30] MEDS: CEFTRIAXONE/SWI 1gm 1 GM/10 ML SYR IV SCH (10:45)
[2018-03-30 12:43] VITALS: BP 127/65; TEMP 98.3
== END 2018-03-30 12:05 | disposition home health service (06) ==
LOC: ER 19:52 → ERHOLD 23:44 → 2ND 03-28 00:43
PROVIDERS: ADMIT Internal Medicine; ATTEND Internal Medicine
DX: N30.00 Acute cystitis without hematuria (principal); I10 Essential (primary) hypertension; F03.90 Unspecified dementia, unspecified severity, without behavioral disturbance, psychotic disturbance, mood disturbance, and anxiety; I48.2 Chronic atrial fibrillation; I45.10 Unspecified right bundle-branch block
CPT/HCPCS: 36415 ×2; 71045; 78452; 80048 ×3; 80076; 83690; 83735; 83880; 84484 ×3; 85025 ×3; 85610; 87040 ×2; 87077; 87086; 87088; 87186; 93005 ×2; 93017; 93306; 94760 ×5; 96361; 96374; 96375; 97116 ×2; 97163; 97530 ×2; 99285; A9500; G0378 ×2; J0696 ×4; J1650 ×3; J2405; J2785; J7030 ×6; 81003; 81015

== ENCOUNTER 2019-01-13 18:36 | Inpatient (IN) | payer OTHER ==
[2019-01-13] MEDS ORDERED: FENTANYL CITR 100 MCG/2 ML ONE ×2 (19:05→20:14)
[2019-01-13] MEDS ORDERED: NA CHLORIDE 0.9% 1,000 ML ONE (19:05)
[2019-01-13 19:20] LABS: Absolute Lymphocytes (CBC) 2.2 K/uL (0.7-4.9); Basophils % 0.6 % (0-1.3); Hematocrit 36.8 % (36.0-45.0); Lymphocytes % 21.6 % (15.3-44.8); MPV 9.5 fL (7.6-11.3); RBC Red Blood Cell Count 3.83 M/uL (3.86-4.86)
[2019-01-13 19:31] LABS: Magnesium 2.2 mg/dL (1.8-2.4); Potassium 3.7 mmol/L (3.5-5.1)
--- NOTE | 2019-01-13 19:40 | RAD REPORT ---
EXAM DESCRIPTION: RAD - Pelvis - 01/13/2019 7:34 pm CLINICAL HISTORY: TRAUMA Fall, hip pain COMPARISON: <Comparisons> FINDINGS: AP pelvis and left hip - multiple projections are submitted Mildly displaced intratrochanteric fracture of the proximal left femur is present. No dislocation elayne dent.
--- NOTE | 2019-01-13 19:40 | RAD REPORT ---
EXAM DESCRIPTION: RAD - Chest Single View - 01/13/2019 7:34 pm CLINICAL HISTORY: fall Chest pain. COMPARISON: Chest Single View dated 03/27/2018; Chest Single View dated 03/19/2018; Chest Single Vie w dated 06/16/2017; Chest Single View dated 02/27/2017 FINDINGS: Portable technique limits examination quality. The lungs are emphysematous but grossly clear. The heart is mildly enlarged in size. No displaced fra ctures. IMPRESSION: Mild cardiomegaly.
[2019-01-13 20:06] LABS: Protime INR 1.01
--- NOTE | 2019-01-13 20:06 | ER ---
Nurse's Notes [facility] Name: Lila Jenkins Age: 78 yrs Sex: Female : 1940 Arrival Date: 01/13/2019 Time: 18:39 Bed 4 Private MD: Diagnosis: Fall on same level, unspecified;Intertrochanteric fracture of femur Presentation: 01/13 18:30 Mechanism of Injury: Fall from standing position. Trauma event details: Injury occurred hb in the [facility], Injury occurred: at home. Injury occurred: January 13, 2019. 18:39 Presenting complaint: EMS states: Left hip pain after mechanical fall from standing. Pt hb was attempting to get out of bed, tripped and fell onto floor by bed. Care prior to arrival: None. 18:39 Acuity: MAREN 3 hb 18:39 Method Of Arrival: EMS: [facility] 18:44 Transition of care: patient was not received from another setting of care. Onset of hb symptoms was January 13, 2019. Risk Assessment: Do you want to hurt yourself or someone else? Patient reports no desire to harm self or others. Initial Sepsis Screen: Does the patient meet any 2 criteria? No. Patient's initial sepsis screen is negative. Does the patient have a suspected source of infection? No. Patient's initial sepsis screen is negative. Trauma Activation: Alert Physician: ED Physician; Name: ; Notified At: ; Arrived At: Physician: General Surgeon; Name: ; Notified At: ; Arrived At: Physician: Radiology; Name: ; Notified At: ; Arrived At: Physician: Respiratory; Name: ; Notified At: ; Arrived At: Physician: Lab; Name: ; Notified At: ; Arrived At: Historical: - Allergies: 18:43 No Known Allergies; hb - Home Meds: 18:49 Depakote 125 mg Oral TbEC 3 tabs 2 times per day [Active]; galantamine 12 mg oral tab 1 hb tab 2 times per day [Active]; propafenone 225 mg Oral tab 1 tab every 8 hours [Active]; Remeron 30 mg Oral tab 1 tab once daily [Active]; - PMHx: 18:43 Alzheimers; Atrial Fib; Bronchitis; GERD; upper GI bleed; UTI; hb 18:49 Depression; Hypertension; dysphagia; hb - PSHx: 18:43 Hysterectomy; Cholecystectomy; hb - Immunization history:: Adult Immunizations up to date. - Social history:: Smoking status: Patient/guardian denies using tobacco. - Immunization history: Last tetanus immunization: unknown. - Ebola Screening: : No symptoms or risks identified at this time. Screenin:42 Abuse screen: Denies threats or abuse. Denies injuries from another. Tuberculosis hb screening: No symptoms or risk factors identified. 18:44 Nutritional screening: No deficits noted. Fall Risk Total [place] Fall Scale indicates hb High Risk Score (45 or more points). Fall prevention measures have been instituted. Side Rails Up X 2 Frequent Obs/Assessments Occuring As available patient and family educated on Fall Prevention Program and Strategies. Primary Survey: 18:40 NO uncontrolled hemorrhage observed. A: The patient is alert. Airway: patent, No hb supplemental oxygen in use on arrival. Breathing/Chest: Respiratory pattern: regular, Respiratory effort: spontaneous, unlabored, Chest inspection: symmetrical rise and fall of the chest. Circulation: Skin color: pink. Disability Alert. Exposure/Environment: There is no evidence of uncontrolled external bleeding. A warming method has been applied:. 19:19 Reassessment Breathing/Chest Respiratory pattern Regular Respiratory effort Spontaneous ak1 Unlabored. Secondary Survey: 18:41 HEENT: No deficits noted. Gastrointestinal: No deficits noted. : No signs and/or hb symptoms were reported regarding the genitourinary system. Musculoskeletal: Reports left hip pain. Assessment: 18:49 General: Appears in no apparent distress. Behavior is calm, cooperative. Pain: Pain hb currently is 10 out of 10 on a pain scale. Neuro: Level of Consciousness is awake, alert, obeys commands, Oriented to person, place, situation. EENT: No signs and/or symptoms were reported regarding the EENT system. Cardiovascular: Capillary refill < 3 seconds Patient's skin is warm and dry. Respiratory: Airway is patent Respiratory effort is even, unlabored, Respiratory pattern is regular, symmetrical, Breath sounds are clear bilaterally. GI: No signs and/or symptoms were reported involving the gastrointestinal system. : No signs and/or symptoms were reported regarding the genitourinary system. Derm: Skin is pink, warm \T\ dry. Musculoskeletal: Reports left hip pain. 19:18 Reassessment: Patient appears in no apparent distress at this time. Patient and/or ak1 family updated on plan of care and expected duration. Pain level reassessed. Patient is alert, oriented x 3, equal unlabored respirations, skin warm/dry/pink. pt taken to X-ray. 20:37 Reassessment: [facility] fax number [phone]. [facility] GIOVANI is requesting official ak1 Xray report to be faxed MEENA. 21:57 Reassessment: Patient and/or family updated on plan of care and expected duration. Pain ea level reassessed. Pt alert and oriented to self, pt admitted to fourth floor, left ED via stretcher per manufacturing maintenance technician, pt tolerating well. Vital Signs: 18:41 BP 186 / 83; Pulse 69; Resp 16; Temp 97.8; Pulse Ox 97% on R/A; Weight 54.43 kg; Height hb 5 ft. 5 in. (165.10 cm); Pain 9/10; 19:56 BP 172 / 75; Pulse 69; Resp 16; Temp 98; Pulse Ox 97% on R/A; Pain 5/10; ak1 20:20 BP 168 / 77; Pulse 81; Resp 16; Temp 98; Pulse Ox 97% on R/A; ak1 18:41 Body Mass Index 19.97 (54.43 kg, 165.10 cm) hb [place] Coma Score: 18:41 Eye Response: spontaneous(4). Verbal Response: confused(4). Motor Response: obeys hb commands(6). Total: 14. Trauma Score (Adult): 18:41 Eye Response: spontaneous(1); Verbal Response: confused(1); Motor Response: obeys hb commands(2); Systolic BP: > 89 mm Hg(4); Respiratory Rate: 10 to 29 per min(4); [place] Score: 14; Trauma Score: 12 ED Course: 18:39 Patient arrived in ED. hb 18:39 Veronica Horn F[facility]-C is [facility]. snw 18:40 Edd Ponce MD is Attending Physician. snw 18:40 Triage completed. hb 18:44 Arm band placed on. hb 18:44 Patient has correct armband on for positive identification. Bed in low position. Call hb light in reach. Side rails up X2. 18:44 Patient maintains SpO2 saturation greater than 95% on room air. Thermoregulation: warm hb blanket given to patient. 19:16 Michelle Shrestha, RN is Primary Nurse. ak1 19:17 Magnesium Sent. ak1 19:17 Ptt, Activated Sent. ak1 19:17 PT-INR Sent. ak1 19:17 Chem 7 Sent. ak1 19:17 CBC with Diff Sent. ak1 19:18 Initial lab(s) drawn, by ED staff, sent to lab. Inserted saline lock: 20 gauge in left ak1 antecubital area, using aseptic technique. ,using aseptic technique. placed by Jayy Vera Blood collected. 19:33 Hip Left 2 View XRAY In Process Unspecified. EDMS 19:34 Chest Single View XRAY In Process Unspecified. EDMS 19:34 Pelvis XRAY In Process Unspecified. EDMS 19:53 EKG done, by ED staff, reviewed by Veronica GONZALES. em1 20:02 Thompson Chang is Hospitalizing Provider. snw 20:20 Anderson cath inserted, using sterile technique, 16 Fr., by in, balloon inflated, to ak1 gravity drainage, Patient tolerated well. 20:36 No provider procedures requiring assistance completed. Patient admitted, IV remains in ak1 place. Administered Medications: 19:17 Drug: fentaNYL (PF) 50 mcg {Note: RASS 0.} Route: IVP; Site: left antecubital; ak1 19:56 Follow up: Response: No adverse reaction; Pain is decreased; RASS: Drowsy (-1) ak1 19:17 Drug: NS 0.9% 1000 ml Route: IV; Rate: 75 ml/hr; Site: left antecubital; ak1 20:20 Follow up: IV Status: Infusion continued upon admission ak1 20:19 Drug: fentaNYL (PF) 50 mcg {Note: verbal order per Veronica.} Route: IVP; Site: left ak1 antecubital; 20:39 Follow up: Response: No adverse reaction; Pain is decreased; RASS: Drowsy (-1) ak Intake: 18:41 PO: 0ml; Total: 0ml. hb Output: 18:41 Urine: 0ml; Total: 0ml. hb Outcome: 20:04 Decision to Hospitalize by Provider. snw 20:35 Condition: stable ak1 20:35 Instructed on the need for admit. 21:57 Admitted to [facility]/surg accompanied by tech, room 407, with chart, Report called to camila Receiving nurse on fourth floor 21:58 Patient left the ED. ak1 Signatures: Dispatcher [employer] EDMS Veronica Horn, [employer] ARCHITECT-Jayy Morrison em1 Michelle Shrestha RN RN ak1 Theodora Mendez, RN RANJEET Jessica Dillon RN RN ea
--- NOTE | 2019-01-13 20:06 | EDPHYS ---
Physician Documentation [facility] Name: Lila Jenkins Age: 78 yrs Sex: Female : 1940 Arrival Date: 01/13/2019 Time: 18:39 Bed 4 Private MD: ED Physician Edd Ponce HPI: 01/13 19:05 This 78 yrs old Female presents to ER via EMS with complaints of Hip Injury. snw 19:05 The patient or guardian reports decreased range of motion, an injury, pain. that snw occurred at a shelter or assisted living facility, sustained from a fall, the right leg is internally rotated, The patient is not able to ambulate. Patient is not able to bear weight. There is no radiation of the patient's discomfort. The complaints affect the left hip. Onset: The symptoms/episode began/occurred suddenly, today. Associated signs and symptoms: Loss of consciousness: the patient experienced no loss of consciousness. Severity of symptoms: At their worst the symptoms were moderate, severe. The patient has not experienced similar symptoms in the past. It is unknown whether or not the patient has recently seen a physician. hx of Alzheimer's . Historical: - Allergies: 18:43 No Known Allergies; hb - Home Meds: 18:49 Depakote 125 mg Oral TbEC 3 tabs 2 times per day [Active]; galantamine 12 mg oral tab 1 hb tab 2 times per day [Active]; propafenone 225 mg Oral tab 1 tab every 8 hours [Active]; Remeron 30 mg Oral tab 1 tab once daily [Active]; - PMHx: 18:43 Alzheimers; Atrial Fib; Bronchitis; GERD; upper GI bleed; UTI; hb 18:49 Depression; Hypertension; dysphagia; hb - PSHx: 18:43 Hysterectomy; Cholecystectomy; hb - Immunization history:: Adult Immunizations up to date. - Social history:: Smoking status: Patient/guardian denies using tobacco. - Immunization history: Last tetanus immunization: unknown. - Ebola Screening: : No symptoms or risks identified at this time. ROS: 19:04 Constitutional: Negative for fever, chills, and weight loss, Eyes: Negative for injury, snw pain, redness, and discharge, ENT: Negative for injury, pain, and discharge, Neck: Negative for injury, pain, and swelling, Cardiovascular: Negative for chest pain, palpitations, and edema, Respiratory: Negative for shortness of breath, cough, wheezing, and pleuritic chest pain, Abdomen/GI: Negative for abdominal pain, nausea, vomiting, diarrhea, and constipation, Back: Negative for injury and pain, : Negative for injury, bleeding, discharge, and swelling, Skin: Negative for injury, rash, and discoloration, Neuro: Negative for headache, weakness, numbness, tingling, and seizure, Psych: Negative for depression, anxiety, suicide ideation, homicidal ideation, and hallucinations. 19:04 MS/extremity: Positive for injury or acute deformity, decreased range of motion, pain, tenderness, of the pelvis and left hip. Exam: 19:03 Constitutional: This is a well developed, well nourished patient who is awake, alert, snw and in no acute distress. Head/Face: Normocephalic, atraumatic. Eyes: Pupils equal round and reactive to light, extra-ocular motions intact. Lids and lashes normal. Conjunctiva and sclera are non-icteric and not injected. Cornea within normal limits. Periorbital areas with no swelling, redness, or edema. ENT: Nares patent. No nasal discharge, no septal abnormalities noted. Tympanic membranes are normal and external auditory canals are clear. Oropharynx with no redness, swelling, or masses, exudates, or evidence of obstruction, uvula midline. Mucous membranes moist. Neck: Trachea midline, no thyromegaly or masses palpated, and no cervical lymphadenopathy. Supple, full range of motion without nuchal rigidity, or vertebral point tenderness. No Meningismus. Chest/axilla: Normal chest wall appearance and motion. Nontender with no deformity. No lesions are appreciated. Cardiovascular: Regular rate and rhythm with a normal S1 and S2. No gallops, murmurs, or rubs. Normal PMI, no JVD. No pulse deficits. Respiratory: Lungs have equal breath sounds bilaterally, clear to auscultation and percussion. No rales, rhonchi or wheezes noted. No increased work of breathing, no retractions or nasal flaring. Abdomen/GI: Soft, non-tender, with normal bowel sounds. No distension or tympany. No guarding or rebound. No evidence of tenderness throughout. Back: No spinal tenderness. No costovertebral tenderness. Full range of motion. Skin: Warm, dry with normal turgor. Normal color with no rashes, no lesions, and no evidence of cellulitis. Neuro: Awake and alert, GCS 15, oriented to person, place, time, and situation. Cranial nerves II-XII grossly intact. Motor strength 5/5 in all extremities. Sensory grossly intact. Cerebellar exam normal. Normal gait. Psych: Awake, alert, with orientation to person, place and time. Behavior, mood, and affect are within normal limits. 19:03 Musculoskeletal/extremity: Extremities: grossly normal except: noted in the left inguinal area and left hip: contusion, decreased ROM, pain. Vital Signs: 18:41 BP 186 / 83; Pulse 69; Resp 16; Temp 97.8; Pulse Ox 97% on R/A; Weight 54.43 kg; Height hb 5 ft. 5 in. (165.10 cm); Pain 9/10; 19:56 BP 172 / 75; Pulse 69; Resp 16; Temp 98; Pulse Ox 97% on R/A; Pain 5/10; ak1 20:20 BP 168 / 77; Pulse 81; Resp 16; Temp 98; Pulse Ox 97% on R/A; ak1 18:41 Body Mass Index 19.97 (54.43 kg, 165.10 cm) hb Bairon Coma Score: 18:41 Eye Response: spontaneous(4). Verbal Response: confused(4). Motor Response: obeys hb commands(6). Total: 14. Trauma Score (Adult): 18:41 Eye Response: spontaneous(1); Verbal Response: confused(1); Motor Response: obeys hb commands(2); Systolic BP: > 89 mm Hg(4); Respiratory Rate: 10 to 29 per min(4); Bairon Score: 14; Trauma Score: 12 MDM: 18:40 Patient medically screened. snw 19:57 Data reviewed: vital signs, nurses notes. Data interpreted: Pulse oximetry: on room air snw is 97 %. Interpretation: normal. Counseling: I had a detailed discussion with the patient and/or guardian regarding: the historical points, exam findings, and any diagnostic results supporting the discharge/admit diagnosis, the presence of at least one elevated blood pressure reading (>120/80) during this emergency department visit, lab results, radiology results, the need for further work-up and treatment in the hospital. Physician consultation: Emanuel Toure MD was called at 19:59, was contacted at 19:59, regarding consult, Will see pt. 20:04 Physician consultation: Thompson Chang was called at 20:04, was contacted at 20:04, snw regarding admission, to the telemetry unit. 01/13 18:45 Order name: CBC with Diff; Complete Time: 19:37 snw 01/13 18:45 Order name: Chem 7; Complete Time: 19:37 snw 01/13 18:45 Order name: Hip Left 2 View XRAY snw 01/13 18:45 Order name: PT-INR; Complete Time: 20:07 snw 01/13 18:45 Order name: Ptt, Activated; Complete Time: 20:07 snw 01/13 18:45 Order name: Magnesium; Complete Time: 19:37 snw 01/13 18:45 Order name: Chest Single View XRAY; Complete Time: 19:53 snw 01/13 18:45 Order name: Pelvis XRAY; Complete Time: 19:53 snw 01/13 18:45 Order name: EKG; Complete Time: 18:46 snw 01/13 18:45 Order name: EKG - Nurse/Tech; Complete Time: 19:53 snw 01/13 19:55 Order name: Anderson; Complete Time: 20:19 snw Administered Medications: 19:17 Drug: fentaNYL (PF) 50 mcg {Note: RASS 0.} Route: IVP; Site: left antecubital; ak1 19:56 Follow up: Response: No adverse reaction; Pain is decreased; RASS: Drowsy (-1) ak1 19:17 Drug: NS 0.9% 1000 ml Route: IV; Rate: 75 ml/hr; Site: left antecubital; ak1 20:20 Follow up: IV Status: Infusion continued upon admission ak1 20:19 Drug: fentaNYL (PF) 50 mcg {Note: verbal order per Veronica.} Route: IVP; Site: left ak1 antecubital; 20:39 Follow up: Response: No adverse reaction; Pain is decreased; RASS: Drowsy (-1) ak1 Disposition: 01/14 15:36 Co-signature as Attending Physician, Edd Ponce MD. gs Disposition: 01/13/19 20:04 Hospitalization ordered by Thompson Chang for Inpatient Admission. Preliminary diagnosis are Fall on same level, unspecified, Intertrochanteric fracture of femur. - Bed requested for Telemetry/MedSurg (Inpatient). - Status is Inpatient Admission. ak1 - Condition is Stable. - Problem is new. - Symptoms have improved. UTI on Admission? No Signatures: Dispatcher [employer] EDMS Cecilia Spivey RN RN Veronica Horn, [employer] Michelle Shrestha RN RN ak1 Theodora Mendez RN RN Edd Ponce MD MD Corrections: (The following items were deleted from the chart) 01/13 21:11 20:04 Hospitalization Ordered by Thompson Chang for Inpatient Admission. Preliminary dw diagnosis is Fall on same level, unspecified; Intertrochanteric fracture of femur. Bed requested for Telemetry/MedSurg (Inpatient). Status is Inpatient Admission. Condition is Stable. Problem is new. Symptoms have improved. UTI on Admission? No. snw 21:58 21:11 01/13/2019 20:04 Hospitalization Ordered by Thompson Chang for Inpatient ak1 Admission. Preliminary diagnosis is Fall on same level, unspecified; Intertrochanteric fracture of femur. Bed requested for Telemetry/MedSurg (Inpatient). Status is Inpatient Admission. Condition is Stable. Problem is new. Symptoms have improved. UTI on Admission? No. dw
--- NOTE | 2019-01-13 20:41 | P.HP ---
Certification for Inpatient Patient admitted to: Inpatient With expected LOS: >2 Midnights Practitioner: I am a practitioner with admitting privileges, knowledge of patient current condition, hospital course, and medical plan of care. Services: Services provided to patient in accordance with Admission requirements found in Title 42 Section 412.3 of the Code of Federal Regulations Patient History Date of Service: 01/14/19 Reason for admission: Fall History of Present Illness: 78-year-old woman with a history of atrial fibrillation, Alzheimer dementia [facility] due to a fall. Patient who at baseline walk without assistance is reported to have fallen while walking to her bedroom. She could not get up and walk due to pain. Patient has advanced dementia and cannot provide any history. In the ED, pelvic x-ray reported mildly displaced intertrochanteric fracture of the proximal left femur. Her BNP and CBC unremarkable. Anderson catheter placed in the ED. EKG demonstrates sinus rhythm. Orthopedic surgeon Dr. Coffey was informed by the ED physician. Dr. Coffey plans to evaluate patient in a.m. for ORIF. Patient is admitted to the hospitalist service for further management. Allergies No Known Allergies Allergy (Verified 03/28/18 00:14) Home Medications: Propafenone [Rythmol*] 225 mg PO TID #90 tab 03/01/17 Galantamine HBr [Galantamine ER] 12 mg PO DAILY 03/28/18 Calcium Carbonate/Vitamin D3 [Calcium 600 + Vit D 400 Tablet] 1 each PO DAILY Divalproex Sodium [Depakote] 375 mg PO BID 01/13/19 Mirtazapine 30 mg PO BEDTIME 01/13/19 guaiFENesin [Guaifenesin] 100 mg PO Q6HP PRN 01/13/19 - Past Medical/Surgical History Diabetic: No -: Atrial fibrillation -: UTI -: Mass on liver/unknown -: Bronchitis -: GERD -: Upper GI Bleed -: Hip pain -: Cholecystectomy -: Hysterectomy - Family History Family History: Reviewed- Non-Contributory - Social History Alcohol use: No CD- Drugs: No Caffeine use: Yes Review of Systems Other: General: No fever, no malaise, no unintentional weight loss. Eyes: No eye discharge, Respiratory: No cough, no shortness of breath. CVS: No chest pain, no palpitation, no lightheadedness. GI: No abdominal pain, no constipation, no diarrhea. She complains of nausea. Genitourinary: No dysuria, no urinary frequency, no hematuria. Neurology: No headache, no asymmetric, weakness, no problem with swallowing. Except as documented, all other systems reviewed and negative. Physical Examination - Physical Exam General: In no apparent distress, Oriented x1 HEENT: Atraumatic, Normocephalic, PERRLA, Mucous membr. moist/pink Neck: Supple, JVD not distended Respiratory: Clear to auscultation bilaterally, Normal air movement Cardiovascular: No edema, Regular rate/rhythm, Normal S1 S2, No murmurs Capillary refill: <2 Seconds Gastrointestinal: Normal bowel sounds, Soft and benign, Non-distended, No tenderness Musculoskeletal: No swelling, Other (Laterally rotated right lower extremity.) Integumentary: No rashes, No breakdown, No erythema Neurological: Other (Nonfocal. She moves all extremities except the right lower extremity. Motor in right lower extremity not assesed.) Urinary: Anderson catheter - Studies Laboratory Data (last 24 hrs) 01/13/19 19:10: PT 11.9, INR 1.01, APTT 27.6 01/13/19 19:10: Sodium 142, Potassium 3.7, BUN 22 H, Creatinine 1.05, Glucose 112 H, Magnesium 2.2 01/13/19 19:10: WBC 10.2, Hgb 12.6, Hct 36.8, Plt Count 181 Assessment and Plan - Problems (Diagnosis) (1) Closed right hip fracture Current Visit: Yes Status: Acute Qualifiers: Encounter type: initial encounter Qualified Code(s): S72.001A - Fracture of unspecified part of neck of right femur, initial encounter for closed fracture (2) Fall Current Visit: Yes Status: Acute Qualifiers: Encounter type: initial encounter Qualified Code(s): W19.XXXA - Unspecified fall, initial encounter (3) Dementia Current Visit: No Status: Chronic Qualifiers: Dementia type: Alzheimer's disease Alzheimer's disease onset: unspecified onset Dementia behavioral disturbance: with behavioral disturbance Qualified Code(s): G30.9 - Alzheimer's disease, unspecified; F02.81 - Dementia in other diseases classified elsewhere with behavioral disturbance (4) Atrial fibrillation Onset Date: 03/01/17 Current Visit: No Status: Chronic Qualifiers: Atrial fibrillation type: chronic (5) Hypertension Onset Date: 03/01/17 Current Visit: No Status: Chronic Qualifiers: Hypertension type: essential hypertension Qualified Code(s): I10 - Essential (primary) hypertension - Plan Admit to the medical floor Supportive measures with IV opioid for pain management. Check urinalysis Orthopedist consult to Dr. Coffey. Continue propafenone for afib Continue oral Depakote Continue Galamantine for Dementia. No active cardiac disease. Patient is not requiring oxygen. Her clinical condition is optimal for surgery. DVT prophylaxis-subcutaneous Lovenox. - Advance Directives Does patient have a Living Will: No Does patient have a Durable POA for Healthcare: No
[2019-01-13] MEDS ORDERED: ONDANSETRON 4 MG/2 ML VIAL IV PRN (22:12)
[2019-01-13] MEDS: MORPHINE 2 MG/ML SYR IV PRN (22:36)
[2019-01-13 23:57] LABS: Urine Appearance CLEAR; Urine Bilirubin NEGATIVE (NEG); Urine Blood 1+ (NEG); Urine Color YELLOW; Urine Glucose NEGATIVE (NEG); Urine Protein NEGATIVE (NEG); Urine Specific Gravity 1.015 (1.005-1.030); Urine Urobilinogen 0.2 mg/dL (0.2-1.0); Urine pH 7.5 (5.0-7.0)
[2019-01-14 00:06] LABS: Urine Microscopic Reflex ORDER UMIC
[2019-01-14] MEDS ORDERED: PROMETHAZINE 25 MG/ML VIAL IV PRN (00:13)
[2019-01-14 00:19] LABS: Urine Bacteria <20 /HPF (<20); Urine Culture Reflex Order NOT NEEDED
[2019-01-14] MEDS: NA CHLORIDE 0.9% 1,000 ML IV SCH ×2 (00:48→06:27)
[2019-01-14] MEDS: HALOPERIDOL LACT 5 MG/ML INJ IV PRN (00:49)
[2019-01-14 05:44] LABS: Basophils % 0.4 % (0-1.3); Hematocrit 33.5 % (36.0-45.0); Lymphocytes % 20.9 % (15.3-44.8); MPV 9.6 fL (7.6-11.3); RBC Red Blood Cell Count 3.44 M/uL (3.86-4.86)
[2019-01-14 05:57] LABS: Phosphorus 3.4 mg/dL (2.5-4.9); Potassium 4.2 mmol/L (3.5-5.1)
[2019-01-14] MEDS: MORPHINE 2 MG/ML SYR IV PRN ×3 (06:29→19:13)
--- NOTE | 2019-01-14 07:17 | EKG ---
Test Date: 2019-01-13 Test Time: 19:46:30 Transportation Worker: JENNIFER MEASUREMENT RESULTS: Intervals: Rate: 68 CO: 218 QRSD: 114 QT: 450 QTc: 478 [place]: P: 63 CO: 218 QRS: 9 T: 44 INTERPRETIVE STATEMENTS: Sinus rhythm with 1st degree AV block Incomplete right bundle branch block Borderline ECG Compared to ECG 03/29/2018 23:12:23 First degree AV block now present Incomplete right bundle-branch block now present Electronically Signed On 01-14-19 07:17:06 CDT by Kaleb Joseph
[2019-01-14] MEDS: DIVALPROEX SODIUM 375 MG PO SCH ×2 (09:00→20:56)
[2019-01-14] MEDS: HOME MED 1 EA UNK (Galantamine Hbr [Galantamine Er] 12 MG) PO SCH (09:00)
[2019-01-14] MEDS: PROPAFENONE HCL 150 MG TAB PO SCH ×3 (09:24→20:53)
[2019-01-14] MEDS ORDERED: guaiFENesin 100 MG/5 ML UCUP PO PRN (11:20)
[2019-01-14] MEDS ORDERED: HYDRALAZINE HCL 20 MG/ML VIAL IV PRN (11:21)
[2019-01-14] MEDS ORDERED: CEFAZOLIN/SWI 1gm 1 GM/10 ML SYR ONE (12:38)
[2019-01-14] MEDS ORDERED: Ringers Lactate 1,000 ML IV ONE (12:38)
[2019-01-14] MEDS ORDERED: CEFAZOLIN SODIUM 1 GM/VIAL ONE (12:38)
[2019-01-14] MEDS ORDERED: CEFAZOLIN/SWI 1gm 0 GM/0 ML SYR ONE (12:38)
[2019-01-14] MEDS ORDERED: SUCCINYLCHOLINE 20 MG/ML (10 ML) IV ONE (12:49)
[2019-01-14] MEDS ORDERED: FENTANYL CITR 100 MCG/2 ML ONE (12:54)
[2019-01-14] MEDS ORDERED: PROPOFOL 200 MG/20 ML VIAL IV ONE (12:54)
[2019-01-14] MEDS ORDERED: TRANEXAMIC ACID 1,000 MG in NA CHLORIDE 0.9% 50 ML IV ONE (13:00)
[2019-01-14] MEDS ORDERED: Phenylephrine HCl 10 MG/ML 1 ML VIAL ONE (13:31)
[2019-01-14] MEDS: MEPERIDINE HCL 25 MG/0.5 ML ONE ×3 (14:11→14:30)
[2019-01-14] MEDS: MORPHINE 4 MG/ML SYR ONE ×2 (15:00→15:06)
--- NOTE | 2019-01-14 15:09 | RAD REPORT ---
EXAM DESCRIPTION: RAD - Fluoroscopy <1 Hour - 01/14/2019 3:04 pm FINDINGS: Two portable C-arm images were submitted from a fluoroscopic assisted placement of fractur e fixation hardware. No suspicious or unexpected finding. Fluoro time was 1.4 minutes.
--- NOTE | 2019-01-14 15:10 | RAD REPORT ---
EXAM DESCRIPTION: RAD - Pelvis - 01/14/2019 3:04 pm CLINICAL HISTORY: Left femur fracture COMPARISON: January 13 TECHNIQUE: AP imaging of the pelvis was obtained. FINDINGS: Single AP projection of the lower pelvis and upper femurs performed. Fracture fixation kieran dware has been placed into the proximal left femur in good position. Lesser trochanter is a free frag ment. No suspicious or unexpected finding. Partially imaged pelvis is well is the proximal right femu r show no acute findings. IMPRESSION: Left femur fracture fixation hardware in good position.
[2019-01-14] MEDS ORDERED: ONDANSETRON 4 MG/2 ML VIAL IV PRN (15:14)
[2019-01-14] MEDS: NACHLORIDE 0.45% 1,000 ML IV SCH (16:46)
--- NOTE | 2019-01-14 16:57 | PN ---
Subjective: Currently patient lying in bed. She is sleeping. She just received morphine for her pa in from her fracture. Her both daughters are at the bedside. She denies any chest pain. No abdomin al pain. According to daughter, no issues overnight except for the pain. Objective: Vital signs: Blood pressure is 175/88, respiratory rate 18, pulse 68. Temperature 97.9, saturating 97% on room air. General: The patient is sleeping and does not look in any distress. HEENT: Atraumatic, normocephalic. PERRLA. Oral mucosa is moist. Neck: Supple. No JVD. No carotid bruit. Chest: Clear to auscultation. Good air entry. Heart: Regular rate and rhythm. S1, S2. No murmur. No gallop. Abdomen: Soft, nontender. No masses. No hepatosplenomegaly. Positive bowel sounds. Extremities: No clubbing or cyanosis. Skin: No rashes. Neurologic: Deferred. Patient able to move her extremity. Was not following commands. Laboratory Data: CBC was normal except for hemoglobin of 5. Chemistry within normal except for GFR of 60, chloride 109, calcium 7.8, glucose 117. EKG showed sinus rhythm with first degree AV block, incomplete right bundle-branch block. Chest x-ra y, mild cardiomegaly. Assessment And Plan: A 78-year-old female with history of dementia, hypertension, and atrial fibrill ation, admitted with fall with closed right hip fracture. 1.Right hip fracture. We will proceed with open reduction and internal fixation by Dr. Coffey. C ontinue pain control. 2.History of atrial fibrillation, rate controlled. EKG showed sinus rhythm with first degree AV blo ck. Cardiology consult requested and they cleared her for surgery. She is on Rythmol 225 mg orally 3 times a day. 3.Hypertension, not well controlled. Start hydralazine p.r.n. 4.Anemia, mild. Observe. 5.Dementia. Discussed with the family about code. She is currently full code. Advised to consider DNR, DNI given patient's poor quality of life and dementia. 6.Deep venous thrombosis prophylaxis. KWAKU/WILDA Voice ID: [id number] Report ID: [id number]
[2019-01-14] MEDS: CEFAZOLIN/SWI 1gm 1 GM/10 ML SYR IV SCH (20:55)
[2019-01-14] MEDS: MIRTAZAPINE 15 MG TAB PO SCH (20:55)
[2019-01-14] MEDS ORDERED: ENOXAPARIN 40 MG/0.4 ML SQ SCH (21:00)
[2019-01-15] MEDS: CEFAZOLIN/SWI 1gm 1 GM/10 ML SYR IV SCH (03:38)
[2019-01-15] MEDS: MORPHINE 2 MG/ML SYR IV PRN ×5 (03:39→23:00)
[2019-01-15 05:20] LABS: Absolute Lymphocytes (CBC) 1.5 K/uL (0.7-4.9); Basophils % 0.5 % (0-1.3); Hematocrit 31.9 % (36.0-45.0); Lymphocytes % 14.5 % (15.3-44.8); MPV 9.9 fL (7.6-11.3); RBC Red Blood Cell Count 3.29 M/uL (3.86-4.86)
[2019-01-15] MEDS: NACHLORIDE 0.45% 1,000 ML IV SCH ×3 (05:20→23:18)
[2019-01-15 05:42] LABS: Albumin 2.5 g/dL (3.4-5.0); Bilirubin Total 0.6 mg/dL (0.2-1.0); Magnesium 1.9 mg/dL (1.8-2.4); Phosphorus 2.4 mg/dL (2.5-4.9); Potassium 3.8 mmol/L (3.5-5.1); Protein, Total 6.1 g/dL (6.4-8.2)
[2019-01-15] MEDS ORDERED: POTASSIUM PHOS IN 0.9 % NACL 15 MMOL/250 ML BAG IV ONE (06:00)
[2019-01-15] MEDS: ENOXAPARIN 30 MG/0.3 ML SQ SCH ×2 (08:22→19:43)
[2019-01-15] MEDS: DIVALPROEX SODIUM 375 MG PO SCH (08:32)
[2019-01-15] MEDS: HOME MED 1 EA UNK (Galantamine Hbr [Galantamine Er] 12 MG) PO SCH (08:32)
[2019-01-15] MEDS: CALCIUM CARB 500MG/VIT D 200 IU TAB PO SCH (09:00)
[2019-01-15] MEDS: PROPAFENONE HCL 150 MG TAB PO SCH (09:00)
[2019-01-15] MEDS: PROPAFENONE 225 MG CAP PO SCH ×3 (09:46→19:43)
--- NOTE | 2019-01-15 10:08 | P.PN ---
Subjective Date of Service: 01/15/19 Chief Complaint: Fall Subjective: Demented (stable from ortho standpointy can go to floor at [facility] labs ok) Physical Examination - Vital Signs Temperature: 99.7 F Blood Pressure: 128/72 Pulse: 93 Respirations: 16 Pulse Ox (%): 93
[2019-01-15 10:47] LABS: Urine White Blood Cell Casts OK
[2019-01-15 10:48] LABS: Blood Morphology Comment NOT SEEN (NOT SEEN); Platelet Estimate DECR
[2019-01-15] MEDS: DIVALPROEX SOD PO SCH (19:42)
[2019-01-15] MEDS: GALANTAMINE HBR 12 MG PO SCH (19:43)
[2019-01-15] MEDS: MIRTAZAPINE 15 MG TAB PO SCH (19:43)
[2019-01-15] MEDS: HALOPERIDOL LACT 5 MG/ML INJ IV PRN (22:03)
[2019-01-16] MEDS: MORPHINE 2 MG/ML SYR IV PRN ×5 (01:00→22:38)
[2019-01-16] MEDS: HALOPERIDOL LACT 5 MG/ML INJ IV PRN ×3 (04:11→14:19)
[2019-01-16] MEDS: NACHLORIDE 0.45% 1,000 ML IV SCH ×4 (05:30→23:44)
[2019-01-16 05:37] LABS: Magnesium 2.1 mg/dL (1.8-2.4); Potassium 3.9 mmol/L (3.5-5.1)
[2019-01-16 05:52] VITALS: BMI 19.4
[2019-01-16] MEDS ORDERED: POTASSIUM PHOS IN 0.9 % NACL 15 MMOL/250 ML BAG IV ONE (07:00)
[2019-01-16] MEDS: ENOXAPARIN 30 MG/0.3 ML SQ SCH ×2 (08:09→22:40)
[2019-01-16] MEDS: DIVALPROEX SOD PO SCH ×2 (08:09→22:44)
[2019-01-16] MEDS: GALANTAMINE HBR 12 MG PO SCH ×2 (08:09→22:45)
[2019-01-16] MEDS: PROPAFENONE 225 MG CAP PO SCH ×3 (08:10→22:44)
[2019-01-16] MEDS: CALCIUM CARB 500MG/VIT D 200 IU TAB PO SCH (08:10)
--- NOTE | 2019-01-16 12:27 | RAD REPORT ---
EXAM DESCRIPTION: RAD - Hip Left 2 View - 01/13/2019 7:34 pm CLINICAL HISTORY: TRAUMA Fall, hip pain COMPARISON: <COMPARISONS> FINDINGS: AP pelvis and left hip - multiple projections are submitted Mildly displaced intratrochanteric fracture of the proximal left femur is present. No dislocation elayne dent.
--- NOTE | 2019-01-16 13:58 | P.PN ---
Subjective Date of Service: 01/16/19 Chief Complaint: Fall Review of Systems 10-point ROS is otherwise unremarkable Physical Examination - Vital Signs Temperature: 98.9 F Blood Pressure: 129/60 Pulse: 81 Respirations: 19 Pulse Ox (%): 94 - Physical Exam General: Alert, In no apparent distress, Cooperative, Demented Neck: Supple, JVD not distended Respiratory: Clear to auscultation bilaterally, Normal air movement Cardiovascular: Regular rate/rhythm, Normal S1 S2 Gastrointestinal: Normal bowel sounds, No tenderness Musculoskeletal: Tenderness Integumentary: No rashes Neurological: Normal speech, Normal tone, Normal affect Lymphatics: No axilla or inguinal lymphadenopathy - Studies Medications List Reviewed: Yes Assessment And Plan - Current Problems (Diagnosis) (1) Fall Current Visit: Yes Status: Acute Plan: S/P mechanical fall -Fall precautions given -PT/OT consulted. Qualifiers: Encounter type: initial encounter Qualified Code(s): W19.XXXA - Unspecified fall, initial encounter (2) Closed right hip fracture Current Visit: Yes Status: Acute Plan: Closed Right hip fx due to Mechanical Fall -S/P ORIF POD # 2 -Pain mgmt and lovenox -Doing well overall -Transfer to the regular floor -Rehab placement and CM consulted Qualifiers: Encounter type: initial encounter Qualified Code(s): S72.001A - Fracture of unspecified part of neck of right femur, initial encounter for closed fracture (3) Hyperlipidemia Onset Date: 03/01/17 Current Visit: No Status: Chronic Qualifiers: Hyperlipidemia type: unspecified Qualified Code(s): E78.5 - Hyperlipidemia , unspecified (4) Atrial fibrillation Onset Date: 03/01/17 Current Visit: No Status: Chronic Qualifiers: Atrial fibrillation type: longstanding persistent Qualified Code(s): I48.11 - Longstanding persistent atrial fibrillation (5) Dementia Current Visit: No Status: Chronic Qualifiers: Dementia type: Alzheimer's disease Alzheimer's disease onset: unspecified onset Dementia behavioral disturbance: with behavioral disturbance Qualified Code(s): G30.9 - Alzheimer's disease, unspecified; F02.81 - Dementia in other diseases classified elsewhere with behavioral disturbance (6) Hypertension Onset Date: 03/01/17 Current Visit: No Status: Chronic Qualifiers: Hypertension type: essential hypertension Qualified Code(s): I10 - Essential (primary) hypertension (7) GERD (gastroesophageal reflux disease) Onset Date: 03/01/17 Current Visit: No Status: Suspected Qualifiers: Esophagitis presence: esophagitis presence not specified Qualified Code(s) : K21.9 - Gastro-esophageal reflux disease without esophagitis Discharge Plan: Transfer Plan to discharge in: 48 Hours - Code Status/Comfort Care Code Status Assessed: Yes Critical Care: No
[2019-01-16] MEDS ORDERED: HALOPERIDOL LACT 5 MG/ML INJ IV PRN (15:11)
--- NOTE | 2019-01-16 17:45 | P.PN ---
Subjective Date of Service: 01/16/19 Chief Complaint: Fall Subjective: No new changes, Demented Review of Systems is unable to be obtained Physical Examination - Vital Signs Temperature: 98.5 F Blood Pressure: 138/71 Pulse: 103 Respirations: 17 Pulse Ox (%): 96 - Physical Exam General: Demented Musculoskeletal: Other (dressings c/d/i, in bed) - Studies Medications List Reviewed: Yes Assessment And Plan - Current Problems (Diagnosis) (1) Closed right hip fracture Current Visit: Yes Status: Acute Qualifiers: Encounter type: initial encounter Qualified Code(s): S72.001A - Fracture of unspecified part of neck of right femur, initial encounter for closed fracture (2) Closed intertrochanteric fracture of right hip Current Visit: Yes Status: Acute Qualifiers: Encounter type: subsequent encounter Fracture alignment: displaced Fracture healing: with routine healing Qualified Code(s): S72.141D - Displaced intertrochanteric fracture of right femur, subsequent encounter for closed fracture with routine healing - Plan discharge to rehab or long-term when safe and stable, touch down weight baring only for 6 weeks, DVT prophylaxis 28 days, f/u in office 2 weeks postop Plan to discharge in: 48 Hours
[2019-01-16] MEDS: MIRTAZAPINE 15 MG TAB PO SCH (22:43)
[2019-01-17] MEDS: HALOPERIDOL LACT 5 MG/ML INJ IV PRN (02:05)
[2019-01-17 05:54] LABS: BUN Blood Urea Nitrogen 13 mg/dL (7-18); Bicarbonate 27 mmol/L (21-32); Glucose Level 87 mg/dL (74-106); Phosphorus 2.3 mg/dL (2.5-4.9); Potassium 3.5 mmol/L (3.5-5.1); Sodium Level 140 mmol/L (136-145)
[2019-01-17] MEDS: NACHLORIDE 0.45% 1,000 ML IV SCH ×2 (06:25→15:31)
[2019-01-17] MEDS: MORPHINE 2 MG/ML SYR IV PRN ×3 (07:14→15:31)
[2019-01-17] MEDS ORDERED: POTASSIUM CL SA 10 MEQ TAB PO ONE (09:00)
[2019-01-17] MEDS: PROPAFENONE 225 MG CAP PO SCH ×3 (09:00→20:28)
[2019-01-17] MEDS: DIVALPROEX SOD PO SCH ×2 (10:12→20:29)
[2019-01-17] MEDS: GALANTAMINE HBR 12 MG PO SCH ×2 (10:12→20:29)
[2019-01-17] MEDS: ENOXAPARIN 30 MG/0.3 ML SQ SCH ×2 (10:12→20:29)
[2019-01-17] MEDS: CALCIUM CARB 500MG/VIT D 200 IU TAB PO SCH (10:12)
[2019-01-17] MEDS: POTASS/SODIUM PHOSPHATE 1 PKT POWD.PACK PO SCH ×2 (10:13→10:14)
--- NOTE | 2019-01-17 11:07 | P.PN ---
Subjective Date of Service: 01/17/19 Chief Complaint: Fall Subjective: No C/O voiced, Improving, Doing well, Other (Was not able to work with PT yesterday due to agitation. Doing better today. Will have her work with PT today) Review of Systems 10-point ROS is otherwise unremarkable Physical Examination - Vital Signs Temperature: 98.6 F Blood Pressure: 132/68 Pulse: 86 Respirations: 18 Pulse Ox (%): 94 - Physical Exam General: Alert, In no apparent distress, Demented HEENT: Atraumatic, PERRLA, EOMI Neck: Supple, JVD not distended Respiratory: Clear to auscultation bilaterally, Normal air movement Cardiovascular: Regular rate/rhythm, Normal S1 S2 Gastrointestinal: Normal bowel sounds, No tenderness Musculoskeletal: No tenderness Integumentary: No rashes Neurological: Normal speech, Normal tone, Normal affect Lymphatics: No axilla or inguinal lymphadenopathy - Studies Medications List Reviewed: Yes Assessment And Plan - Current Problems (Diagnosis) (1) Fall Current Visit: Yes Status: Acute Plan: S/P mechanical fall -Fall precautions given -PT/OT consulted. -Unable to work with pt Due to being Agitated and requiring Haldol. -today doing much better than before. Will get reevaluation by PT Qualifiers: Encounter type: initial encounter Qualified Code(s): W19.XXXA - Unspecified fall, initial encounter (2) Closed right hip fracture Current Visit: Yes Status: Acute Plan: Closed Right hip fx due to Mechanical Fall -S/P ORIF POD # 3 -Pain mgmt and lovenox -Doing well overall -Possible Rehab placement after getting reevalution with PT. -CM consulted Qualifiers: Encounter type: initial encounter Qualified Code(s): S72.001A - Fracture of unspecified part of neck of right femur, initial encounter for closed fracture (3) Hyperlipidemia Onset Date: 03/01/17 Current Visit: No Status: Chronic Qualifiers: Hyperlipidemia type: unspecified Qualified Code(s): E78.5 - Hyperlipidemia , unspecified (4) Atrial fibrillation Onset Date: 03/01/17 Current Visit: No Status: Chronic Qualifiers: Atrial fibrillation type: longstanding persistent Qualified Code(s): I48.11 - Longstanding persistent atrial fibrillation (5) Dementia Current Visit: No Status: Chronic Qualifiers: Dementia type: Alzheimer's disease Alzheimer's disease onset: unspecified onset Dementia behavioral disturbance: with behavioral disturbance Qualified Code(s): G30.9 - Alzheimer's disease, unspecified; F02.81 - Dementia in other diseases classified elsewhere with behavioral disturbance (6) Hypertension Onset Date: 03/01/17 Current Visit: No Status: Chronic Qualifiers: Hypertension type: essential hypertension Qualified Code(s): I10 - Essential (primary) hypertension (7) GERD (gastroesophageal reflux disease) Onset Date: 03/01/17 Current Visit: No Status: Suspected Qualifiers: Esophagitis presence: esophagitis presence not specified Qualified Code(s) : K21.9 - Gastro-esophageal reflux disease without esophagitis - Plan Pending PT evaluation at this time
[2019-01-17] MEDS: MIRTAZAPINE 15 MG TAB PO SCH (20:29)
[2019-01-17] MEDS: ACETAMINOPHEN 500 MG TAB PO PRN (20:29)
[2019-01-18] MEDS: ACETAMINOPHEN 500 MG TAB PO PRN ×3 (01:26→22:05)
[2019-01-18] MEDS: HALOPERIDOL LACT 5 MG/ML INJ IV PRN ×3 (01:26→22:06)
[2019-01-18] MEDS: NACHLORIDE 0.45% 1,000 ML IV SCH ×3 (03:01→15:14)
[2019-01-18] MEDS: MORPHINE 2 MG/ML SYR IV PRN (04:02)
[2019-01-18] MEDS ORDERED: HYDROMORPHONE HCL 0.5 MG/0.5 ML INJ IV ONE (05:39)
[2019-01-18 06:19] LABS: BUN Blood Urea Nitrogen 12 mg/dL (7-18); Bicarbonate 29 mmol/L (21-32); Glucose Level 99 mg/dL (74-106); Phosphorus 2.5 mg/dL (2.5-4.9); Potassium 3.2 mmol/L (3.5-5.1); Sodium Level 143 mmol/L (136-145)
[2019-01-18] MEDS ORDERED: POTASSIUM CL SA 10 MEQ TAB PO ONE (08:00)
[2019-01-18] MEDS: ENOXAPARIN 30 MG/0.3 ML SQ SCH ×2 (08:58→20:58)
[2019-01-18] MEDS: POTASS/SODIUM PHOSPHATE 1 PKT POWD.PACK PO SCH ×3 (08:59→11:31)
[2019-01-18] MEDS: CALCIUM CARB 500MG/VIT D 200 IU TAB PO SCH (09:00)
[2019-01-18] MEDS: GALANTAMINE HBR 12 MG PO SCH ×2 (09:01→21:00)
[2019-01-18] MEDS: DIVALPROEX SOD PO SCH ×2 (09:03→20:58)
[2019-01-18] MEDS: PROPAFENONE 225 MG CAP PO SCH ×3 (09:08→21:00)
--- NOTE | 2019-01-18 11:43 | P.PN ---
Subjective Date of Service: 01/18/19 Chief Complaint: Fall Subjective: No C/O voiced, Ambulating, Improving, Working w/ PT, Doing well Review of Systems 10-point ROS is otherwise unremarkable Physical Examination - Vital Signs Temperature: 98.1 F Blood Pressure: 149/74 Pulse: 89 Respirations: 18 Pulse Ox (%): 98 - Physical Exam General: Alert, In no apparent distress, Demented HEENT: Atraumatic, PERRLA, EOMI Neck: Supple, JVD not distended Respiratory: Clear to auscultation bilaterally, Normal air movement Cardiovascular: Regular rate/rhythm, Normal S1 S2 Gastrointestinal: Normal bowel sounds, No tenderness Musculoskeletal: No tenderness Integumentary: No rashes Neurological: Normal speech, Normal tone, Normal affect Lymphatics: No axilla or inguinal lymphadenopathy - Studies Medications List Reviewed: Yes Assessment And Plan - Current Problems (Diagnosis) (1) Fall Current Visit: Yes Status: Acute Plan: S/P mechanical fall -Fall precautions given -PT/OT consulted. -Unable to work with pt Due to being Agitated and requiring Haldol. -today doing much better than before. Will work with PT -Awaiting SNF placement Qualifiers: Encounter type: initial encounter Qualified Code(s): W19.XXXA - Unspecified fall, initial encounter (2) Closed right hip fracture Current Visit: Yes Status: Acute Plan: Closed Right hip fx due to Mechanical Fall -S/P ORIF POD # 4 -Pain mgmt and lovenox -Doing well overall -CM consulted for SNF placement Qualifiers: Encounter type: initial encounter Qualified Code(s): S72.001A - Fracture of unspecified part of neck of right femur, initial encounter for closed fracture (3) Hyperlipidemia Onset Date: 03/01/17 Current Visit: No Status: Chronic Qualifiers: Hyperlipidemia type: unspecified Qualified Code(s): E78.5 - Hyperlipidemia , unspecified (4) Atrial fibrillation Onset Date: 03/01/17 Current Visit: No Status: Chronic Qualifiers: Atrial fibrillation type: longstanding persistent Qualified Code(s): I48.11 - Longstanding persistent atrial fibrillation (5) Dementia Current Visit: No Status: Chronic Qualifiers: Dementia type: Alzheimer's disease Alzheimer's disease onset: unspecified onset Dementia behavioral disturbance: with behavioral disturbance Qualified Code(s): G30.9 - Alzheimer's disease, unspecified; F02.81 - Dementia in other diseases classified elsewhere with behavioral disturbance (6) Hypertension Onset Date: 03/01/17 Current Visit: No Status: Chronic Qualifiers: Hypertension type: essential hypertension Qualified Code(s): I10 - Essential (primary) hypertension (7) GERD (gastroesophageal reflux disease) Onset Date: 03/01/17 Current Visit: No Status: Suspected Qualifiers: Esophagitis presence: esophagitis presence not specified Qualified Code(s) : K21.9 - Gastro-esophageal reflux disease without esophagitis - Plan Pending SNF placement Discharge Plan: Home Plan to discharge in: Greater than 2 days - Code Status/Comfort Care Code Status Assessed: Yes Critical Care: No
[2019-01-18] MEDS ORDERED: POTASSIUM 25 MEQ EFFERV TAB PO ONE (17:00)
[2019-01-18] MEDS: MIRTAZAPINE 15 MG TAB PO SCH (20:59)
[2019-01-19] MEDS: NACHLORIDE 0.45% 1,000 ML IV SCH ×2 (03:00→08:30)
[2019-01-19 06:07] LABS: BUN Blood Urea Nitrogen 10 mg/dL (7-18); Bicarbonate 27 mmol/L (21-32); Glucose Level 113 mg/dL (74-106); Phosphorus 2.8 mg/dL (2.5-4.9); Potassium 3.4 mmol/L (3.5-5.1); Sodium Level 144 mmol/L (136-145)
[2019-01-19] MEDS: DIVALPROEX SOD PO SCH (07:51)
[2019-01-19] MEDS: PROPAFENONE 225 MG CAP PO SCH ×2 (07:51→13:04)
[2019-01-19] MEDS: ENOXAPARIN 30 MG/0.3 ML SQ SCH (07:51)
[2019-01-19] MEDS: CALCIUM CARB 500MG/VIT D 200 IU TAB PO SCH (07:52)
[2019-01-19] MEDS: GALANTAMINE HBR 12 MG PO SCH (08:37)
[2019-01-19] MEDS ORDERED: POTASSIUM 25 MEQ EFFERV TAB PO ONE (09:00)
--- NOTE | 2019-01-19 10:17 | CON ---
Reason For Consultation: Left intertrochanteric hip fracture. History Of Present Illness: Ms. is somewhat demented 78-year-old lady, sustained a fall w ith acute left intertrochanteric hip fracture. We were asked to evaluate her for this. Review of he r x-ray, require an intramedullary rodding to repair this fracture. Past Medical History: Her past medical history is significant for dementia, which is fairly severe. UTI and atrial fibrillation. Current Medications: Haldol, Rythmol, saline flush, fentanyl. She is currently on Lovenox. X-rays reveal an intertrochanteric hip fracture that will be amenable to intramedullary rodding. Plan: Will be to proceed with a left intramedullary rodding after medical clearance is obtained. KAYLEIGH Voice ID: [id number] Report ID: [id number]
--- NOTE | 2019-01-19 10:20 | CON ---
History Of Present Illness: Ms. Jenkins is 78. She lives in a senior living , fell while walking. She could not get up. She was brought to the hospital the next day, with left intertrochanteric hip fracture and planned surgery to repair it. The patient was never an unstable cardiac patient. She has had atrial fibrillation. She has been in sinus rhythm every time I have seen her. She takes propafenone 225 mg 3 times a day and does not take an anticoagulant because of frequent falls when she is maintaining sinus rhythm. She has never had vascular disease. She has severe dementia. Medications: Outpatient medications are propafenone, galantamine, mirtazepine, divalproex, guaifenesin, and calcium carbonate. Social History: She does not use tobacco. Review of Systems: Denies having chest pain or shortness of breath. Allergies: DOES NOT HAVE ALLERGIES. Physical Examination: Vital Signs: 5 feet 3 inches, 128 pounds. HEENT: Normal. She is very confused, cannot focus on questions very well and cannot answer very simple questions. Lungs: Do not feel reveal crackles or wheeze. Heart: Regular. EKG is unchanged. It shows sinus with first-degree AV block, incomplete right bundle, sinus rhythm. We need to make sure she continues her propafenone 225 t.i.d. It is ordered. She is due to get a dose at 9. I consider her a low risk patient for going through surgery. She has had a nuclear stress test and echocardiogram within the last 10 months that were not suggestive of CAD. Carotid Dopplers likewise are not suggestive of atherosclerosis. SHELBY/WILDA Voice ID: [id number] Report ID: [id number] [place]
[2019-01-19 10:23] VITALS: O2SAT 99
[2019-01-19 11:01] VITALS: BP 147/75; TEMP 98.6
--- NOTE | 2019-01-19 11:34 | P.DS ---
Admission Date: 01/13/19 Discharge Date: 01/19/19 Primary Care Provider: Unknown Disposition: TRANSFER TO SNF - MEDICAL Discharge Condition: GOOD Reason for Admission: Fall Consultations: Surgery-Dr. Coffey Cardiology-Dr. Joseph Procedures: Xray: FINDINGS: AP pelvis and left hip - multiple projections are submitted Mildly displaced intratrochanteric fracture of the proximal left femur is present. No dislocation evident Surgery: Open reduction internal fixation of the right hip Medical Problem list: Mechanical fall leading to displaced intratrochanteric fracture of the proximal left femur status post open reduction internal fixation Chronic atrial fibrillation not on chronic anti coagulation therapy Alzheimer's dementia with behavioral disturbance Brief History of Present Illness: 78-year-old female with history of chronic atrial fibrillation, Alzheimer's dementia. Patient presented to the emergency room after mechanical fall. She was found to have displaced intertrochanteric fracture of the proximal left femur. Patient was admitted for further treatment Hospital Course: Patient presented with mechanical fall and found to have right intertrochanteric fracture of the proximal femur. Patient was admitted for further evaluation and treatment. Patient was seen by orthopedics and cardiology. Orthopedics recommended surgical intervention. Cardiology cleared patient for surgery. Patient had open reduction internal fixation of the right hip. No complications were noted during her stay. Patient continued with physical therapy. Patient improved. Inpatient rehab was consulted but denied by insurance. Therefore at discharge patient has been accepted to go to skilled facility to continue rehabilitation. Patient will continue with DVT prophylaxis-Lovenox 30 mg subcu daily for at least 20 more days until she is more mobile. Patient with chronic atrial fibrillation not on chronic anti coagulation therapy. This has remained stable. Patient was seen by cardiology for cardiac clearance. At discharge she will continue with her current medication-Rythmol 225 mg 1 pill 3 times a day. Patient with underlying Alzheimer's dementia with behavioral disturbance. At discharge she will continue with her medications-Galantamine ER 12 mg daily, , Depakote 375 mg 1 pill twice daily, and mirtazapine 30 mg daily. Further adjustment can be done by her PCP. Vital Signs/Physical Exam: Temp Pulse Resp BP Pulse Ox 98.6 F 82 17 147/75 H 98 01/19/19 11:00 01/19/19 11:00 01/19/19 11:00 01/19/19 11:00 01/19/19 11:00 General: Alert, In no apparent distress, Demented HEENT: Atraumatic Neck: Supple Respiratory: Clear to auscultation bilaterally, Normal air movement Cardiovascular: Normal pulses, Regular rate/rhythm Gastrointestinal: Normal bowel sounds, Soft and benign, Non-distended, No tenderness, No masses, No rebound, No guarding Neurological: Normal speech, Dementia Laboratory Data at Discharge: WBC 10.0 K/uL (4.3-10.9) 01/15/19 04:55 Hgb 11.2 g/dL (12.0-15.0) L 01/15/19 04:55 Hct 31.9 % (36.0-45.0) L 01/15/19 04:55 Plt Count 138 K/uL (152-406) L 01/15/19 04:55 PT 11.9 SECONDS (9.5-12.5) 01/13/19 19:10 INR 1.01 01/13/19 19:10 APTT 27.6 SECONDS (24.3-36.9) 01/13/19 19:10 Sodium 144 mmol/L (136-145) 01/19/19 05:27 Potassium 3.4 mmol/L (3.5-5.1) L 01/19/19 05:27 BUN 10 mg/dL (7-18) 01/19/19 05:27 Creatinine 0.62 mg/dL (0.55-1.3) 01/19/19 05:27 Glucose 113 mg/dL (74-106) H 01/19/19 05:27 Phosphorus 2.8 mg/dL (2.5-4.9) 01/19/19 05:27 Magnesium 2.1 mg/dL (1.8-2.4) 01/16/19 04:38 Total Bilirubin 0.6 mg/dL (0.2-1.0) 01/15/19 04:55 AST 24 U/L (15-37) 01/15/19 04:55 ALT 17 U/L (12-78) 01/15/19 04:55 Alkaline Phosphatase 45 U/L (45-117) 01/15/19 04:55 Home Medications: Propafenone [Rythmol*] 225 mg PO TID #90 tab 03/01/17 Galantamine HBr [Galantamine ER] 12 mg PO DAILY 03/28/18 Calcium Carbonate/Vitamin D3 [Calcium 600-Vit D3 400 Tablet] 1 each PO DAILY Divalproex Sodium [Depakote] 375 mg PO BID 01/13/19 Mirtazapine 30 mg PO BEDTIME 01/13/19 guaiFENesin [Guaifenesin] 100 mg PO Q6HP PRN 01/13/19 Enoxaparin Sodium [Lovenox 30 MG INJ*] 30 mg SQ DAILY #20 syr 01/19/19 New Medications: Enoxaparin Sodium [Lovenox 30 MG INJ*] 30 mg SQ DAILY #20 syr Patient Discharge Instructions: 1. Patient to be discharge to skilled facility. 2. Patient presented with mechanical fall and found to have right intertrochanteric fracture of the proximal femur. Patient was admitted for further evaluation and treatment. Patient was seen by orthopedics and cardiology. Orthopedics recommended surgical intervention. Cardiology cleared patient for surgery. Patient had open reduction internal fixation of the right hip. No complications were noted during her stay. Patient continued with physical therapy. Patient improved. Inpatient rehab was consulted but denied by insurance. Therefore at discharge patient has been accepted to go to skilled facility to continue rehabilitation. Patient will continue with DVT prophylaxis-Lovenox 30 mg subcu daily for at least 20 more days until she is more mobile. 3. Patient with chronic atrial fibrillation not on chronic anti coagulation therapy. This has remained stable. Patient was seen by cardiology for cardiac clearance. At discharge she will continue with her current medication-Rythmol 225 mg 1 pill 3 times a day. 4. Patient with underlying Alzheimer's dementia with behavioral disturbance. At discharge she will continue with her medications-Galantamine ER 12 mg daily, , Depakote 375 mg 1 pill twice daily, and mirtazapine 30 mg daily. Further adjustment can be done by her PCP. Diet: AHA Activity: Fall precautions Time spent managing pt's care (in minutes): 55
--- OUTSIDE RECORDS SUMMARY | 2019-02-05 02:53 | XMS REPORT ---
:1940 [facility] Address [address] [place] [address] Dr. Medina [address] [place] [id number] Care Team Providers Name Role Phone Unavailable Unavailable Unavailable Problems This patient has no known problems. Allergies, Adverse Reactions, Alerts This patient has no known allergies or adverse reactions. Medications This patient has no known medications.
--- NOTE | 2019-03-14 03:10 | OP ---
Surgeon: Emanuel Coffey MD Vessel Traffic Officer: MO Rodriguez. Preoperative Diagnosis: Left intertrochanteric hip fracture. Postoperative Diagnosis: Left intertrochanteric hip fracture. Procedure Performed: IM rodding left intertrochanteric hip fracture. Complications: None. Operative Report In Detail: Patient was taken to the operative suite, placed in supine position, ind uced anesthesia. Left hip was prepped and draped in usual sterile fashion she was placed on a fractu re table without difficulty. An intramedullary selina was introduced into the tip of the greater trocha nter, past the fracture site. A lag screw placed in the subchondral bone of the femoral head and nacho ified on biplane radiography followed by distal interlocking of the screw. Anatomic reduction was re alized. Patient tolerated procedure well, was reversed to anesthesia and should be in the recovery r oom shortly after a layered closure was performed. SYD/WILDA Voice ID: [id number] Report ID: [id number]
== END 2019-01-19 15:27 | DRG 481 ==
LOC: ER 18:36 → ERHOLD 20:55 → 4TH 21:24 → 3RD-ICU 01-14 14:12 → 2ND 01-16 12:20
PROVIDERS: ADMIT Internal Medicine; ATTEND Internal Medicine
PROC: 0QS734Z Reposition Left Upper Femur with Internal Fixation Device, Percutaneous Approach (ICD-10-PCS; principal; 2019-01-14 12:45)
DX: S72.142A Displaced intertrochanteric fracture of left femur, initial encounter for closed fracture (principal); I48.20 Chronic atrial fibrillation, unspecified; I48.91 Unspecified atrial fibrillation; F03.90 Unspecified dementia, unspecified severity, without behavioral disturbance, psychotic disturbance, mood disturbance, and anxiety; I10 Essential (primary) hypertension; D64.9 Anemia, unspecified; I44.0 Atrioventricular block, first degree; E78.5 Hyperlipidemia, unspecified; W18.30XA Fall on same level, unspecified, initial encounter; Y92.099 Unspecified place in other non-institutional residence as the place of occurrence of the external cause
CPT/HCPCS: 36415; 51702; 71045; 72170; 76000; 80048; 80053; 81003; 81015; 83735; 84100; 84132; 85025; 85610; 85730; 93005; 94760; 96361; 96374; 97110; 97161; 97530; 99285; J0330; J0360; J0690; J1630; J1650; J2175; J2270; J2370; J2405; J2704; J3010; J7030; J7120

== ENCOUNTER 2019-04-07 21:07 | Emergency (ER) | payer OTHER ==
--- OUTSIDE RECORDS SUMMARY | 2019-04-07 21:09 | XMS REPORT ---
:1940 Author Organization [facility] Address [address] [place] [address] Dr. Medina [address] [place] [id number] Care Team Providers Name Role Phone Unavailable Unavailable Unavailable Problems This patient has no known problems. Allergies, Adverse Reactions, Alerts This patient has no known allergies or adverse reactions. Medications This patient has no known medications.
[2019-04-07 22:42] LABS: Absolute Lymphocytes (CBC) 1.9 K/uL (0.7-4.9); Basophils % 0.8 % (0-1.3); Hematocrit 40.6 % (36.0-45.0); Lymphocytes % 25.8 % (15.3-44.8); MPV 9.7 fL (7.6-11.3); RBC Red Blood Cell Count 4.12 M/uL (3.86-4.86)
[2019-04-07 22:44] LABS: Potassium 3.7 mmol/L (3.5-5.1)
[2019-04-08] MEDS ORDERED: ACETAMINOPHEN 325 MG TABLET ONE ×2 (01:15)
--- NOTE | 2019-04-08 03:24 | EDPHYS ---
Physician Documentation [facility] Name: Lila Jenkins Age: 78 yrs Sex: Female : 1940 Arrival Date: 04/07/2019 Time: 21:10 Bed 5 Private MD: ED Physician Sterling Petty HPI: 04/08 00:09 This 78 yrs old Female presents to ER via EMS with complaints of Fall Injury. kdr 00:09 Details of fall: The patient fell from an upright position, while standing, while kdr walking. Historical: - Allergies: 04/07 21:10 No Known Allergies; jb4 - Home Meds: 21:10 Depakote 125 mg Oral TbEC 3 tabs 2 times per day [Active]; Remeron 30 mg Oral tab 1 tab jb4 once daily [Active]; propafenone 225 mg Oral tab 1 tab every 8 hours [Active]; galantamine 12 mg Oral tab 1 tab 2 times per day [Active]; - PMHx: 21:10 Alzheimers; Atrial Fib; Bronchitis; Depression; DYSPHAGIA; GERD; Hypertension; upper GI jb4 bleed; UTI; - PSHx: 21:10 Hysterectomy; Cholecystectomy; jb4 - Immunization history:: Adult Immunizations up to date. - Social history:: Smoking status: unknown. - Immunization history: Last tetanus immunization: unknown. - Ebola Screening: : No symptoms or risks identified at this time. ROS: 04/08 03:28 Constitutional: The patient is a poor historian and is not able to give a clear and kdr consistent history. The family supplied to history and recent events Unable to obtain ROS due to baseline dementia. Exam: 03:28 Constitutional: This is a well developed, well nourished patient who is awake, alert, kdr and in no acute distress. Head/Face: Normocephalic, atraumatic. Eyes: Pupils equal round and reactive to light, extra-ocular motions intact. Lids and lashes normal. Conjunctiva and sclera are non-icteric and not injected. Cornea within normal limits. Periorbital areas with no swelling, redness, or edema. Neck: Trachea midline, no thyromegaly or masses palpated, and no cervical lymphadenopathy. Supple, full range of motion without nuchal rigidity, or vertebral point tenderness. No Meningismus. Despite later finding of fracture Vital Signs: 04/07 21:10 BP 163 / 69; Pulse 74; Resp 11; Temp 98.2(O); Pulse Ox 97% ; Weight 50.08 kg (R); jb4 Height 5 ft. 5 in. (165.10 cm) (R); Pain 0/10; 22:00 BP 142 / 73; Pulse 70; Resp 16; Pulse Ox 98% on R/A; jb4 23:00 BP 144 / 67; Pulse 68; Resp 18; Pulse Ox 100% on R/A; jb4 04/08 00:00 BP 156 / 78; Pulse 66; Resp 15; Pulse Ox 97% on R/A; jb4 01:00 BP 132 / 74; Pulse 69; Resp 18; Pulse Ox 96% on R/A; jb4 01:45 BP 132 / 74; Pulse 61; Resp 18; Pulse Ox 99% on R/A; jb4 02:30 BP 141 / 65; Pulse 65; Resp 15; Pulse Ox 96% on R/A; jb4 04/07 21:10 Body Mass Index 18.37 (50.08 kg, 165.10 cm) jb4 [place] Coma Score: 04/07 21:10 Eye Response: spontaneous(4). Verbal Response: oriented(5). Motor Response: obeys jb4 commands(6). Total: 15. 22:00 Eye Response: spontaneous(4). Verbal Response: oriented(5). Motor Response: obeys jb4 commands(6). Total: 15. 23:00 Eye Response: spontaneous(4). Verbal Response: oriented(5). Motor Response: obeys jb4 commands(6). Total: 15. 04/08 00:00 Eye Response: spontaneous(4). Verbal Response: oriented(5). Motor Response: obeys jb4 commands(6). Total: 15. 01:00 Eye Response: spontaneous(4). Verbal Response: oriented(5). Motor Response: obeys jb4 commands(6). Total: 15. 01:45 Eye Response: spontaneous(4). Verbal Response: oriented(5). Motor Response: obeys jb4 commands(6). Total: 15. 02:30 Eye Response: spontaneous(4). Verbal Response: oriented(5). Motor Response: obeys jb4 commands(6). Total: 15. 03:30 Eye Response: spontaneous(4). Verbal Response: oriented(5). Motor Response: obeys jb4 commands(6). Total: 15. Trauma Score (Adult): 04/07 21:10 Eye Response: spontaneous(1); Verbal Response: oriented(1); Motor Response: obeys jb4 commands(2); Systolic BP: > 89 mm Hg(4); Respiratory Rate: 10 to 29 per min(4); [place] Score: 15; Trauma Score: 12 22:00 Eye Response: spontaneous(1); Verbal Response: oriented(1); Motor Response: obeys jb4 commands(2); Systolic BP: > 89 mm Hg(4); Respiratory Rate: 10 to 29 per min(4); [place] Score: 15; Trauma Score: 12 23:00 Eye Response: spontaneous(1); Verbal Response: oriented(1); Motor Response: obeys jb4 commands(2); Systolic BP: > 89 mm Hg(4); Respiratory Rate: 10 to 29 per min(4); [place] Score: 15; Trauma Score: 12 04/08 00:00 Eye Response: spontaneous(1); Verbal Response: oriented(1); Motor Response: obeys jb4 commands(2); Systolic BP: > 89 mm Hg(4); Respiratory Rate: 10 to 29 per min(4); [place] Score: 15; Trauma Score: 12 01:00 Eye Response: spontaneous(1); Verbal Response: oriented(1); Motor Response: obeys jb4 commands(2); Systolic BP: > 89 mm Hg(4); Respiratory Rate: 10 to 29 per min(4); [place] Score: 15; Trauma Score: 12 01:45 Eye Response: spontaneous(1); Verbal Response: oriented(1); Motor Response: obeys jb4 commands(2); Systolic BP: > 89 mm Hg(4); Respiratory Rate: 10 to 29 per min(4); [place] Score: 15; Trauma Score: 12 02:30 Eye Response: spontaneous(1); Verbal Response: oriented(1); Motor Response: obeys jb4 commands(2); Systolic BP: > 89 mm Hg(4); Respiratory Rate: 10 to 29 per min(4); [place] Score: 15; Trauma Score: 12 03:30 Eye Response: spontaneous(1); Verbal Response: oriented(1); Motor Response: obeys jb4 commands(2); Systolic BP: > 89 mm Hg(4); Respiratory Rate: 10 to 29 per min(4); [place] Score: 15; Trauma Score: 12 MDM: 03:23 Patient medically screened. kdr 03:24 Data reviewed: vital signs, nurses notes, lab test result(s), radiologic studies. kdr Counseling: I had a detailed discussion with the patient and/or guardian regarding: the historical points, exam findings, and any diagnostic results supporting the discharge/admit diagnosis, lab results, radiology results, the need for outpatient follow up. ED course: had extensive discussion with family regarding radiology findings - specifically the spine reports and pneumobilia. Given patient overall condition and mental status - will not attempt to provide neck support with hard collar. They will attempt to place a soft collar and follow-up. 04/07 21:20 Order name: Basic Metabolic Panel; Complete Time: 23:17 kdr 04/07 21:20 Order name: CBC with Diff; Complete Time: 23:17 kdr 04/07 21:20 Order name: CT Traumagram (Head C Spine CAP wo con) kdr 04/07 21:20 Order name: Creatinine for Radiology; Complete Time: 23:17 kdr 04/07 21:20 Order name: Type And Screen; Complete Time: 00:08 kdr 04/07 21:20 Order name: Labs collected and sent; Complete Time: 22:19 kdr Administered Medications: 01:20 Drug: Tylenol 650 mg Route: PO; 4 02:22 Follow up: Response: No adverse reaction jb4 Disposition: 04/08/19 03:23 Discharged to Home. Impression: Dementia in other diseases classified elsewhere, Superficial injury of head, Spinous Process Fracure - C4, Hepatic pneumobilia -stable, Thoracic Spine chnages - likely chronic. - Condition is Stable. - Discharge Instructions: Cervical Spine Fracture, Stable, Head Injury, Adult, [id number]. - Medication Reconciliation Form, Thank You Letter form. - Follow up: Private Physician; When: 2 - 3 days; Reason: If symptoms return, Further diagnostic work-up, Recheck today's complaints, Continuance of care, Re-evaluation by your physician. - Problem is new. - Symptoms have improved. Signatures: Dispatcher [employer] EDSterling Haywood MD MD kdr Lio Desai RN RN jb4 Corrections: (The following items were deleted from the chart) 03:55 03:23 04/08/2019 03:23 Discharged to Home. Impression: Dementia in other diseases jb4 classified elsewhere; Superficial injury of head; Spinous Process Fracure - C4, Hepatic pneumobilia -stable, Thoracic Spine chnages - likely chronic. Condition is Stable. Forms are Medication Reconciliation Form, Thank You Letter, Antibiotic Education, Prescription Opioid Use. Follow up: Private Physician; When: 2 - 3 days; Reason: If symptoms return, Further diagnostic work-up, Recheck today's complaints, Continuance of care, Re-evaluation by your physician. Problem is new. Symptoms have improved. kdr
--- NOTE | 2019-04-08 03:24 | ER ---
Nurse's Notes [facility] Name: Lila Jenkins Age: 78 yrs Sex: Female : 1940 Arrival Date: 04/07/2019 Time: 21:10 Bed 5 Private MD: Diagnosis: Dementia in other diseases classified elsewhere;Superficial injury of head;Spinous Process Fracure - C4, Hepatic pneumobilia -stable, Thoracic Spine chnages - likely chronic Presentation: 04/07 21:10 Presenting complaint: EMS states: Pt fell while in the [place]. The fall was not [facility] witnessed but was heard. Pt was in her wheelchair and when staff from [place] got to her she was in the floor. Pt has a hematoma on the left of the forehead, and is complaining of left him pain. No LOC reported and pt is not on blood thinners. Pt is a\T\o x1 which is her reported norm. 21:10 Transition of care: patient was not received from another setting of care. Onset of [facility] symptoms was April 07, 2019. Risk Assessment: Do you want to hurt yourself or someone else? Patient reports no desire to harm self or others. Initial Sepsis Screen: Does the patient meet any 2 criteria? No. Patient's initial sepsis screen is negative. Does the patient have a suspected source of infection? No. Patient's initial sepsis screen is negative. Care prior to arrival: None. 21:10 Method Of Arrival: EMS: [facility] 21:10 Acuity: MAREN 2 [facility] 21:10 Mechanism of Injury: Fall out of chair. Trauma event details: Injury occurred in the [address] Trauma Activation: Alert Physician: ED Physician; Name: Jovanny; Notified At: 21:14; Arrived At: 21:14 Physician: General Surgeon; Name: ; Notified At: 21:14; Arrived At: Physician: Radiology; Name: Lester; Notified At: 21:14; Arrived At: 21:14 Physician: Respiratory; Name: ; Notified At: 21:14; Arrived At: Physician: Lab; Name: ; Notified At: 21:14; Arrived At: Historical: - Allergies: 21:10 No Known Allergies; jb4 - Home Meds: 21:10 Depakote 125 mg Oral TbEC 3 tabs 2 times per day [Active]; Remeron 30 mg Oral tab 1 tab jb4 once daily [Active]; propafenone 225 mg Oral tab 1 tab every 8 hours [Active]; galantamine 12 mg Oral tab 1 tab 2 times per day [Active]; - PMHx: 21:10 Alzheimers; Atrial Fib; Bronchitis; Depression; DYSPHAGIA; GERD; Hypertension; upper GI jb4 bleed; UTI; - PSHx: 21:10 Hysterectomy; Cholecystectomy; jb4 - Immunization history:: Adult Immunizations up to date. - Social history:: Smoking status: unknown. - Immunization history: Last tetanus immunization: unknown. - Ebola Screening: : No symptoms or risks identified at this time. Screenin:10 Abuse screen: Denies threats or abuse. Nutritional screening: No deficits noted. jb4 Tuberculosis screening: No symptoms or risk factors identified. Fall risk At risk due to injury, age, immobility, prior history of falls, Intervention for positive screen: side rails up. 21:10 Fall Risk Fall in past 12 months (25 points). No secondary diagnosis (0 pts). IV access jb4 (20 points). Gait- Impaired (20 pts.). Mental Status- Overestimates/Forgets Limitations (15 pts.). Primary Survey: 21:10 NO uncontrolled hemorrhage observed. A: Airway: patent, No supplemental oxygen in use jb4 on arrival. Breathing/Chest: Respiratory pattern: regular, Respiratory effort: spontaneous, unlabored. Circulation: Skin color: pink, Skin temperature: warm, dry. Disability Alert. Exposure/Environment: All clothing and personal items were removed. Forensic evidence collection is not deemed to be indicated at this time. Items placed in patient belonging bag. A warming method has been applied: A warm blanket has been provided to the patient. 22:00 Reassessment Airway Airway Patent Oxygen No O2 Breathing/Chest Respiratory pattern jb4 Regular Respiratory effort Spontaneous Unlabored Chest inspection Symmetrical Circulation Color [place] Temperature Warm Dry Disability Alert. Secondary Survey: 21:10 HEENT: Head Other Hematoma to the left of the head. Gastrointestinal: No deficits jb4 noted. : No signs and/or symptoms were reported regarding the genitourinary system. Musculoskeletal: Circulation, motion, and sensation intact. Range of motion: limited in left hip. Injury Description: hematoma to forehead. Assessment: 21:10 General: Appears in no apparent distress. uncomfortable, Behavior is calm, cooperative, jb4 appropriate for age, Pt is A\T\o x1 which is the reported baseline.. Pain: Denies pain. Neuro: Level of Consciousness is awake, alert, obeys commands, Oriented to person. Cardiovascular: Patient's skin is warm and dry. Respiratory: Airway is patent Respiratory effort is even, unlabored, Respiratory pattern is regular, symmetrical. GI: No signs and/or symptoms were reported involving the gastrointestinal system. : No signs and/or symptoms were reported regarding the genitourinary system. EENT: No signs and/or symptoms were reported regarding the EENT system. Derm: Skin is intact, Skin is pink, warm \T\ dry. Musculoskeletal: Circulation, motion, and sensation intact. Range of motion: limited in left hip. Injury Description: hematoma to the left of the head. 22:00 Reassessment: Patient appears in no apparent distress at this time. No changes from jb4 previously documented assessment. Patient and/or family updated on plan of care and expected duration. Pain level reassessed. 23:00 Reassessment: Patient appears in no apparent distress at this time. Patient and/or jb4 family updated on plan of care and expected duration. Pain level reassessed. Pt is resting in bed with eyes closed respirations are even and unlabored, no s/s of distress noted at this time. Daughter is at the bedside. 04/08 00:00 Reassessment: Patient appears in no apparent distress at this time. No changes from jb4 previously documented assessment. Patient and/or family updated on plan of care and expected duration. Pain level reassessed. 01:00 Reassessment: Patient appears in no apparent distress at this time. No changes from jb4 previously documented assessment. Patient and/or family updated on plan of care and expected duration. Pain level reassessed. 01:20 Reassessment: Family believe pt will not tolerate having a C-collar in place and would jb4 fight it. Pt refusing C-collar at this time. Provider notified. 02:00 Reassessment: Patient appears in no apparent distress at this time. No changes from jb4 previously documented assessment. Patient and/or family updated on plan of care and expected duration. Pain level reassessed. 03:00 Reassessment: Patient appears in no apparent distress at this time. No changes from jb4 previously documented assessment. Patient and/or family updated on plan of care and expected duration. Pain level reassessed. Provider is at the bedside discussing test results and plan of care. 03:09 Reassessment: Spoke with RANJEET Lynn from [facility] for update on patient lp1 status. 03:49 Reassessment: Patient appears in no apparent distress at this time. Patient and/or jb4 family updated on plan of care and expected duration. Pain level reassessed. PT A\T\o x1 respirations even and unlabored, no s/s of distress noted, daughter and son in law verbalized understanding of d/c and follow up instructions, pt assisted to family vehicle via wheelchair. Report given to Herb at [place]. Vital Signs: 04/07 21:10 BP 163 / 69; Pulse 74; Resp 11; Temp 98.2(O); Pulse Ox 97% ; Weight 50.08 kg (R); jb4 Height 5 ft. 5 in. (165.10 cm) (R); Pain 0/10; 22:00 BP 142 / 73; Pulse 70; Resp 16; Pulse Ox 98% on R/A; jb4 23:00 BP 144 / 67; Pulse 68; Resp 18; Pulse Ox 100% on R/A; jb4 11 00:00 BP 156 / 78; Pulse 66; Resp 15; Pulse Ox 97% on R/A; jb4 01:00 BP 132 / 74; Pulse 69; Resp 18; Pulse Ox 96% on R/A; jb4 01:45 BP 132 / 74; Pulse 61; Resp 18; Pulse Ox 99% on R/A; jb4 02:30 BP 141 / 65; Pulse 65; Resp 15; Pulse Ox 96% on R/A; jb4 04/07 21:10 Body Mass Index 18.37 (50.08 kg, 165.10 cm) jb4 [place] Coma Score: 04/07 21:10 Eye Response: spontaneous(4). Verbal Response: oriented(5). Motor Response: obeys jb4 commands(6). Total: 15. 22:00 Eye Response: spontaneous(4). Verbal Response: oriented(5). Motor Response: obeys jb4 commands(6). Total: 15. 23:00 Eye Response: spontaneous(4). Verbal Response: oriented(5). Motor Response: obeys jb4 commands(6). Total: 15. 04/08 00:00 Eye Response: spontaneous(4). Verbal Response: oriented(5). Motor Response: obeys jb4 commands(6). Total: 15. 01:00 Eye Response: spontaneous(4). Verbal Response: oriented(5). Motor Response: obeys jb4 commands(6). Total: 15. 01:45 Eye Response: spontaneous(4). Verbal Response: oriented(5). Motor Response: obeys jb4 commands(6). Total: 15. 02:30 Eye Response: spontaneous(4). Verbal Response: oriented(5). Motor Response: obeys jb4 commands(6). Total: 15. 03:30 Eye Response: spontaneous(4). Verbal Response: oriented(5). Motor Response: obeys jb4 commands(6). Total: 15. Trauma Score (Adult): 04/07 21:10 Eye Response: spontaneous(1); Verbal Response: oriented(1); Motor Response: obeys jb4 commands(2); Systolic BP: > 89 mm Hg(4); Respiratory Rate: 10 to 29 per min(4); [place] Score: 15; Trauma Score: 12 22:00 Eye Response: spontaneous(1); Verbal Response: oriented(1); Motor Response: obeys jb4 commands(2); Systolic BP: > 89 mm Hg(4); Respiratory Rate: 10 to 29 per min(4); [place] Score: 15; Trauma Score: 12 23:00 Eye Response: spontaneous(1); Verbal Response: oriented(1); Motor Response: obeys jb4 commands(2); Systolic BP: > 89 mm Hg(4); Respiratory Rate: 10 to 29 per min(4); [place] Score: 15; Trauma Score: 12 04/08 00:00 Eye Response: spontaneous(1); Verbal Response: oriented(1); Motor Response: obeys jb4 commands(2); Systolic BP: > 89 mm Hg(4); Respiratory Rate: 10 to 29 per min(4); [place] Score: 15; Trauma Score: 12 01:00 Eye Response: spontaneous(1); Verbal Response: oriented(1); Motor Response: obeys jb4 commands(2); Systolic BP: > 89 mm Hg(4); Respiratory Rate: 10 to 29 per min(4); [place] Score: 15; Trauma Score: 12 01:45 Eye Response: spontaneous(1); Verbal Response: oriented(1); Motor Response: obeys jb4 commands(2); Systolic BP: > 89 mm Hg(4); Respiratory Rate: 10 to 29 per min(4); [place] Score: 15; Trauma Score: 12 02:30 Eye Response: spontaneous(1); Verbal Response: oriented(1); Motor Response: obeys jb4 commands(2); Systolic BP: > 89 mm Hg(4); Respiratory Rate: 10 to 29 per min(4); [place] Score: 15; Trauma Score: 12 03:30 Eye Response: spontaneous(1); Verbal Response: oriented(1); Motor Response: obeys jb4 commands(2); Systolic BP: > 89 mm Hg(4); Respiratory Rate: 10 to 29 per min(4); [place] Score: 15; Trauma Score: 12 ED Course: 04/07 21:10 Patient arrived in ED. ds1 21:10 Arm band placed on right wrist. jb4 21:10 Patient has correct armband on for positive identification. Placed in gown. Bed in low jb4 position. Call light in reach. Side rails up X2. Patient maintains SpO2 saturation greater than 95% on room air. 21:10 Patient maintains SpO2 saturation greater than 95% on room air. jb4 21:10 Thermoregulation: warm blanket given to patient. jb4 21:14 Lio Desai, RN is Primary Nurse. jb4 21:15 Sterling Petty MD is Attending Physician. kdr 21:17 Triage completed. jb4 22:07 CT Traumagram (Head C Spine CAP wo con) In Process Unspecified. EDMS 04/08 03:54 No provider procedures requiring assistance completed. IV discontinued, intact, jb4 bleeding controlled, No redness/swelling at site. Administered Medications: 01:20 Drug: Tylenol 650 mg Route: PO; jb4 02:22 Follow up: Response: No adverse reaction jb4 Intake: 04/07 21:10 PO: 0ml; Total: 0ml. jb4 Outcome: 04/08 03:23 Discharge ordered by . kdr 03:54 Discharged to home ambulatory, via wheelchair, with family. jb4 03:54 Condition: stable 03:54 Discharge instructions given to family, skilled nursing, Instructed on discharge instructions, follow up and referral plans. Demonstrated understanding of instructions, follow-up care. 03:55 Patient's length of stay in the Emergency Department was greater than 2 hours. PT jb4 discharged home with family to skilled nursing.Patient's length of stay extended due to 03:55 Patient left the ED. jb4 Signatures: Dispatcher [employer] EDMS Sterling Petty MD MD kdr [place], Demi ds1 Cinthya Jay, RANJEET RN lp1 Lio Desai RN RN jb4
[2019-04-08 04:00] VITALS: TEMP 98.2
[2019-04-08 04:08] VITALS: BP 141/65; O2SAT 96
--- NOTE | 2019-04-10 11:46 | RAD REPORT ---
EXAM DESCRIPTION: CT - Head C Spine Cap Wo Con - 04/08/2019 6:04 am ADDENDUM #1 Request was made for additional report to be made on chest abdomen and pelvis which is included in im aging study for CT head and cervical spine. TECHNIQUE: Axial 5 mm imaging of the chest abdomen and pelvis performed without intravenous contrast . Reformatted coronal and sagittal images obtained. FINDINGS: CHEST: Heart is minimally enlarged. No pericardial fluid. Aneurysm dilatation of the ascending aorta to 4 cm . Mild aortic atherosclerosis. Normal caliber main pulmonary artery. Mild coronary artery calcificati ons. There is no mediastinal hemorrhage or emphysema. Nonenlarged mediastinal lymph nodes are present. Nor mal appearance of the central airways and esophagus. There is no pneumothorax, consolidation, contusion, or pleural fluid. Minimal subpleural atelectasis in the lower lobes. Unremarkable included thyroid. No subclavicular axillary adenopathy. Intact solomon um. There is a slight superior endplate depression of multiple upper thoracic vertebral body segments which appear old or degenerative. There is a mild superior endplate wedge compression fracture of T1 1 with approximately 40% loss of vertebral body height. There is no paraspinal edema. No retropulsion . No paraspinal edema. No spinal canal stenosis. No fracture within the remaining bony thorax. ABDOMEN/PELVIS: The liver is normal in contour. There is diffuse pneumobilia. There is significant left and mild righ t intrahepatic biliary duct dilatation. No perihepatic hemorrhage. Gallbladder has been resected. Nor mal spleen. Normal pancreas, adrenal glands, and right kidney. Slight fullness of the left renal pelv is with no obstructing stone or mass. There is significant abdominal aorta atherosclerosis. Normal caliber inferior vena cava. No adenopath y. Normal stomach and small bowel loops. Appendix is not visualized. Slight thickening of the ascendi ng colon may be due to incomplete distention or mild colitis. Unremarkable remaining colon. No ascite s or free air. Bladder appears normal. Uterus is not identified compatible with prior resection. No pelvic free flui d. There is a superior end plate Schmorl's node at L3. No subluxation. Pars defect bilaterally at L5 wit hout subluxation. Marked deformity of the left parasymphyseal pubic bone due to a remote fracture. Pr oximal left femur fixation hardware appears intact. There is a persistent fracture lucency within the intertrochanteric region of the left proximal femur. IMPRESSION: 1. No acute traumatic cardiopulmonary finding. 2. Ascending aortic aneurysm to 4 cm without rupture. Assessment for dissection cannot be reliably ma de without intravenous contrast. 3. Mild superior endplate wedge compression fracture of T11 is age-indeterminate. There is slight sup erior endplate depression at multiple upper thoracic vertebral body segments which could be due to re mote fractures or degenerative. 4. Significant pneumobilia. There is intrahepatic and extrahepatic biliary dilatation diffusely, sign ificantly within the left lobe, with no obstructing stone or mass. The appearance is stable. 5. Slight thickening of the ascending colon may be due to incomplete distention or mild colitis. 6. Mild fullness of the left renal pelvis with no obstructing etiology. 7. Old left anterior pubic bone fracture. 8. Subacute proximal left femur fracture with intact fixation hardware. Electronically signed by: Yoselyn Capps DO 04/08/2019 2:43 AM EQUAL OPPORTUNITY DIRECTOR End of Addendum EXAM DESCRIPTION: Head C Spine Cap Wo Con CLINICAL HISTORY: Fell on left side COMPARISON: None Available TECHNIQUE: Contiguous axial CT images of the head cervical spine were obtained. No intravenous contr ast was administered. Coronal and sagittal reconstructions were created from the axial data. This exam was performed according to our departmental dose-optimization program, which includes autom ated exposure control, adjustment of the mA and/or kV according to patient size and/or use of iterati ve reconstruction technique. FINDINGS: There is left forehead soft tissue swelling. Poorly defined foci of decreased attenuation do not exert significant mass effect on surrounding stru ctures and are likely sequela of prior insult, most likely on the basis of small vessel disease. There is central white matter volume loss and medial temporal lobe volume loss bilaterally, right gre ater than left. These findings are unchanged. There is a fracture of the spinous process of C4, mildly diastatic. There is chronic partial fusion of the C2 and C3 vertebral posterior elements. There is reversal of the normal lordotic curvature from C2 through C6. Osteopenia limits sensitivity for fracture but no other definite fracture is seen. Please see separate report of the CT of the chest abdomen and pelvis. There is no evidence of intracranial acute mass, mass effect, midline shift or hemorrhage. IMPRESSION: C4 spinous process fracture. No acute intracranial abnormality. No other acute cervical spine abnormality. Electronically signed by: Berlin Castañeda 04/07/2019 10:37 PM EQUAL OPPORTUNITY DIRECTOR Due to temporary technical issues with the PACS/Fluency reporting system, reports are being signed by the in house radiologist as a courtesy to ensure prompt reporting. The interpreting radiologist is f ully responsible for the content of the report.
== END 2019-04-08 03:55 | disposition home or self-care (01) ==
LOC: ER 21:07
DX: S12.300A Unspecified displaced fracture of fourth cervical vertebra, initial encounter for closed fracture (principal); W19.XXXA Unspecified fall, initial encounter; Y93.01 Activity, walking, marching and hiking; Y92.9 Unspecified place or not applicable; G30.9 Alzheimer's disease, unspecified; F02.80 Dementia in other diseases classified elsewhere, unspecified severity, without behavioral disturbance, psychotic disturbance, mood disturbance, and anxiety; I48.91 Unspecified atrial fibrillation; I10 Essential (primary) hypertension; F32.9 Major depressive disorder, single episode, unspecified
CPT/HCPCS: 36415; 70450; 71250; 72125; 80048; 85025; 86850; 86900; 86901; 99284

== ENCOUNTER 2019-05-21 16:47 | Emergency (ER) | payer OTHER ==
--- OUTSIDE RECORDS SUMMARY | 2019-05-21 16:51 | XMS REPORT | Summary of Care ---
:1940 Author Organization [facility] - Health Address [address] [place] [address] Care Team Providers Name Role Phone Pcp, Patient Does Not Have A Primary Care Provider Encounter Details Date Type Department Care Team Description 01/13/2019 Orders Only [facility] Doctor Unassigned, No [address] [facility] Name [place] [id number] [place] [address] Allergies No Known Allergiesdocumented as of this encounter (statuses as of 04/20/2019) Medications Medication Sig Dispensed Refills Start Date End Date Status propafenone 150 mg Take 1.5 tablets 0 04/08/2016 Active tablet by mouth 3 (three) times daily. MULTIVIT-MIN/IRON/FOLI Take by mouth. 0 Active C/LUTEIN (CENTRUM SILVER WOMEN ORAL) CALCIUM ORAL Take by mouth. 0 Active NAPROXEN SODIUM (ALEVE Take by mouth. 0 Active ORAL) documented as of this encounter (statuses as of 04/20/2019) Active Problems Problem Noted Date Borderline abnormal thyroid function test 01/19/2017 Senile osteoporosis 01/19/2017 senior care current use of systemic steroids 10/07/2016 PMR (polymyalgia rheumatica) 06/24/2016 Overview: Diagnosed 04/2016: ESR 48, CRP 2.6, B/L hip pain Left knee pain, unspecified chronicity 06/24/2016 Pain of both hip joints 05/27/2016 Midline low back pain, unspecified chronicity, with sciatica presence 2016 unspecified Elevated C-reactive protein (CRP) 05/27/2016 Osteoporosis 05/04/2016 Vitamin D deficiency 05/04/2016 documented as of this encounter (statuses as of 04/20/2019) Social History Tobacco Use Types Packs/Day Years Used Date Never Smoker Alcohol Use Drinks/Week oz/Week Comments No 0 Standard drinks or equivalent 0.0 Sex Assigned at Date Recorded Not on file Job Start Date Occupation Industry Not on file Not on file Not on file Travel History Travel Start Travel End No recent travel history available. documented as of this encounter Last Filed Vital Signs Not on filedocumented in this encounter Plan of Treatment Health Maintenance Due Date Last Done Comments DTaP,Tdap,and Td Vaccines (1 - Tdap) 08/10/1950 Zoster Recombinant Vaccine (SHINGRIX) (1 08/10/1989 of 2) Medicare Wellness Visit 08/10/2004 PNEUMOCOCCAL VACCINES 65+ (1 of 2 - PCV13) 08/10/2004 INFLUENZA VACCINE (#1) 2018 Osteoporosis Screening 05/24/2028 05/24/2018, 05/24/2017 documented as of this encounter Procedures Procedure Name Priority Date/Time Associated Diagnosis Comments NON [facility] Routine 01/13/2019 12:01 AM DOCUMENTATION CDT documented in this encounter Results Not on filedocumented in this encounter Insurance Payer Benefit Plan / Subscriber ID Effective Phone Address Type Group Dates MEDICARE MEDICARE PART xxxxxxxxxxx 2004-Pres [phone] Medicare A & B ent [id number] [place] [id number] [facility] MEDICAID OF xxxxxxxxx 2018-11/3 [phone] [address] Medicaid [id number] [place] [address] CHEIKH SALAMANCA xxxxxxxxx 2018-Pres [address] Medicaid HEALTHCARE - HEALTHCARE ent [id number] MANAGED MEDICAID [place], [place]ID [place] documented as of this encounter
--- OUTSIDE RECORDS SUMMARY | 2019-05-21 16:51 | XMS REPORT ---
:1940 [facility] Address [address] [place] [address] Dr. Medina [address] [place] [id number] Care Team Providers Name Role Phone Unavailable Unavailable Unavailable Problems This patient has no known problems. Allergies, Adverse Reactions, Alerts This patient has no known allergies or adverse reactions. Medications This patient has no known medications.
--- NOTE | 2019-05-21 17:33 | ER ---
Nurse's Notes [facility] Name: Lila Jenkins Age: 78 yrs Sex: Female : 1940 Arrival Date: 05/21/2019 Time: 16:52 Bed 7 Private MD: Diagnosis: Displaced fracture of shaft of first metacarpal bone, left hand Presentation: 05/21 16:52 Presenting complaint: EMS states: Pt from [facility], staff reports that pt injured hand ph while "using walker", injury was unwitnessed, swelling and bruising noted to L hand, hx of dementia, pt denies pain. 16:59 Transition of care: patient was not received from another setting of care. Onset of ph symptoms was May 21, 2019. Risk Assessment: Do you want to hurt yourself or someone else? Patient reports no desire to harm self or others. Initial Sepsis Screen: Does the patient meet any 2 criteria? No. Patient's initial sepsis screen is negative. Does the patient have a suspected source of infection? No. Patient's initial sepsis screen is negative. Care prior to arrival: None. 16:59 Acuity: MAREN 4 ph 16:59 Method Of Arrival: EMS: [facility] Med ph - Immunization history:: Adult Immunizations up to date. - Coronavirus screen:: The patient has NOT traveled to [place] in the past 14 days. The patient has NOT had contact with known/suspected case of Coronavirus?. - Family history:: not pertinent. - Social history:: Smoking status: unknown. - Hospitalizations: : No recent hospitalization is reported. - Ebola Screening: : No symptoms or risks identified at this time. Screenin:58 Abuse screen: Denies threats or abuse. Denies injuries from another. Nutritional ph screening: No deficits noted. Tuberculosis screening: No symptoms or risk factors identified. Fall Risk No fall in past 12 months (0 pts). Secondary diagnosis (15 points) dementia, No IV (0 pts). Ambulatory Aid- Crutches/Cane/Walker (15 pts). Gait- Normal/Bed Rest/Wheelchair (0 pts) Mental Status- Overestimates/Forgets Limitations (15 pts.). Total [place]il[place] Fall Scale indicates High Risk Score (45 or more points). Fall prevention measures have been instituted. Side Rails Up X 2 Placed Close to Nursing Station Frequent Obs/Assessments Occuring As available patient and family educated on Fall Prevention Program and Strategies. Assessment: 17:00 General: Appears in no apparent distress. comfortable, slender, well groomed, Behavior ph is calm, cooperative, appropriate for age. Pain: Denies pain. Neuro: Level of Consciousness is awake, alert, obeys commands, Oriented to person. Cardiovascular: Capillary refill < 3 seconds in bilateral fingers Patient's skin is warm and dry. Respiratory: Airway is patent Respiratory effort is even, unlabored. Derm: Skin is intact, is fragile, is thin, Skin is pink, warm \\T\\ dry. Bruising that is dark purple, on left hand. Musculoskeletal: Circulation, motion, and sensation intact. Swelling present in left hand. 17:50 Reassessment: Patient appears in no apparent distress at this time. Called report to [facility], requested transport back to facility, nurse states, " We don't have anyone available, can you arrange a non emergent transfer back to the facility?" Explained that we do not arrange transport for pt's that are able to sit up in wheelchair, will attempt to contact family. 18:21 Reassessment: Patient appears in no apparent distress at this time. Patient and/or family updated on plan of care and expected duration. Pain level reassessed. 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 Vital Signs: 17:31 BP 136 / 86; Pulse 65; Resp 18; Pulse Ox 95% on R/A; ph 18:00 BP 127 / 84; Pulse 67; Resp 18; Temp 98.0; Pulse Ox 96% on R/A; ph ED Course: 16:52 Patient arrived in ED. ph 16:56 Nacho Guerra MD is Attending Physician. rn 16:58 Kaley Mancia, RANJEET is Primary Nurse. ph 17:00 Triage completed. ph 17:00 Arm band placed on. ph 17:30 XRAY Hand LEFT 3 View In Process Unspecified. EDMS 17:31 Carlos Blackburn MD is Referral Physician. rn 17:35 Patient has correct armband on for positive identification. Bed in low position. Call ph light in reach. Side rails up X 1. Pulse ox on. NIBP on. Door closed. Noise minimized. Warm blanket given. 17:35 Assist provider with fracture care of left hand Fracture is closed. Obvious deformity ph is not noted. Circulation, motor and sensation is intact. Set up for procedure. Performed by Nacho Guerra MD Immobilized with OCL splint, Post immobilization, circulation, motor and sensation remain intact. Patient tolerated well. Patient did not have IV access during this emergency room visit. Administered Medications: No medications were administered Outcome: 17:32 Discharge ordered by . rn 18:30 Discharged to [facility]. ph 18:30 Condition: good 18:30 Discharge instructions given to family, Instructed on discharge instructions, follow up and referral plans. Demonstrated understanding of instructions, follow-up care. 18:33 Patient left the ED. iw Signatures: Dispatcher [employer] Keri Green, Nacho Waever RN, MD MD rn Hall, Patricia, RN RN
--- NOTE | 2019-05-21 17:33 | EDPHYS ---
Physician Documentation [facility] Name: Lila Jenkins Age: 78 yrs Sex: Female : 1940 Arrival Date: 05/21/2019 Time: 16:52 Bed 7 Private MD: ED Physician Nacho Guerra HPI: 05/21 17:02 This 78 yrs old Female presents to ER via EMS with complaints of Hand Injury. rn 17:02 The patient or guardian reports a contusion, pain, swelling. The complaints affect the rn left hand diffusely. Onset: The symptoms/episode began/occurred at an unknown time. Modifying factors: The symptoms are alleviated by nothing, the symptoms are aggravated by deep palpation. Severity of symptoms: At their worst the symptoms were mild, in the emergency department the symptoms are unchanged. It is unknown whether or not the patient has had similar symptoms in the past. Sent by [facility] for evaluation of hand injury, mechanism not witnessed, patient denies known trauma, reports left hand hurts, denies fall or "fighting". No pain or other injury. . - Immunization history:: Adult Immunizations up to date. - Coronavirus screen:: The patient has NOT traveled to [place] in the past 14 days. The patient has NOT had contact with known/suspected case of Coronavirus?. - Family history:: not pertinent. - Social history:: Smoking status: unknown. - Hospitalizations: : No recent hospitalization is reported. - Ebola Screening: : No symptoms or risks identified at this time. ROS: 17:03 Constitutional: Negative for fever, chills, and weight loss, Eyes: Negative for injury, rn pain, redness, and discharge, Neck: Negative for injury, pain, and swelling, Cardiovascular: Negative for chest pain, palpitations, and edema, Respiratory: Negative for shortness of breath, cough, wheezing, and pleuritic chest pain, Abdomen/GI: Negative for abdominal pain, nausea, vomiting, diarrhea, and constipation, Back: Negative for injury and pain, MS/Extremity: + left hand pain Neuro: Negative for headache, weakness, numbness, tingling, and seizure. Exam: 17:03 Constitutional: Thin female, no acute distress, smiling and joking Head/Face: rn Normocephalic, atraumatic. ENT: MMM Neck: No midline cervical tenderness Chest/axilla: Normal chest wall appearance and motion. Nontender with no deformity. Cardiovascular: No pulse deficits. Respiratory: No increased work of breathing, no retractions or nasal flaring. Abdomen/GI: soft, non-tender MS/ Extremity: Pulses equal, no cyanosis. Neurovascular intact. + tenderness at base of left thumb, + moderate ecchymosis and swelling dorsum left hand, no open wounds. Neuro: Awake and alert, moves all 4 ext, follows commands, joking. Vital Signs: 17:31 BP 136 / 86; Pulse 65; Resp 18; Pulse Ox 95% on R/A; ph 18:00 BP 127 / 84; Pulse 67; Resp 18; Temp 98.0; Pulse Ox 96% on R/A; ph Procedures: 17:29 Splinting: Splint applied to left hand, thumb using Orthoglass splint, thumb spica. rn applied by myself. Examined by me, post splint application: neurovascular intact, 2+ distal pulses palpable, brisk capillary refill noted, Patient tolerated well. MDM: 16:56 Patient medically screened. rn 17:29 Differential diagnosis: closed fracture. Data reviewed: vital signs, nurses notes, rn radiologic studies, plain films, and as a result, I will discharge patient. Counseling: I had a detailed discussion with the patient and/or guardian regarding: the historical points, exam findings, and any diagnostic results supporting the discharge/admit diagnosis, radiology results, the need for outpatient follow up, to return to the emergency department if symptoms worsen or persist or if there are any questions or concerns that arise at home. Response to treatment: the patient's symptoms have mildly improved after treatment, and as a result, I will discharge patient. Special discussion: I discussed with the patient/guardian in detail that at this point there is no indication for admission to the hospital. It is understood, however, that if the symptoms persist or worsen the patient needs to return immediately for re-evaluation. Based on the history and exam findings, there is no indication for further emergent testing or inpatient evaluation. I discussed with the patient/guardian the need to see the orthopedic surgeon for further evaluation of the symptoms. 05/21 17:00 Order name: XRAY Hand LEFT 3 View; Complete Time: 18:19 rn Administered Medications: No medications were administered Disposition: 05/21/19 17:32 Discharged to Home. Impression: Displaced fracture of shaft of first metacarpal bone, left hand. - Condition is Stable. - Discharge Instructions: Cast or Splint Care, Adult, Metacarpal Fracture. - Medication Reconciliation Form, Thank You Letter, Antibiotic Education, Prescription Opioid Use form. - Follow up: Carlos Blackburn MD; When: 5 - 6 days; Reason: Recheck today's complaints, Re-evaluation by your physician. - Problem is new. - Symptoms have improved. Signatures: Dispatcher [employer] EDKeri Lewis RN RN iw Nieto, Roman, MD MD rn Kaley Mancia RN RN ph Corrections: (The following items were deleted from the chart) 18:33 17:32 05/21/2019 17:32 Discharged to Home. Impression: Displaced fracture of shaft of iw first metacarpal bone, left hand. Condition is Stable. Forms are Medication Reconciliation Form, Thank You Letter, Antibiotic Education, Prescription Opioid Use. Follow up: Carlos Blackburn; When: 5 - 6 days; Reason: Recheck today's complaints, Re-evaluation by your physician. Problem is new. Symptoms have improved. rn
--- NOTE | 2019-05-21 17:38 | RAD REPORT ---
EXAM DESCRIPTION: RAD -Hand Left 3 View - 05/21/2019 5:17 pm CLINICAL HISTORY: Left hand pain status post injury FINDINGS: Comminuted moderately displaced fracture involves most of the first metacarpal. No dislocation
[2019-05-21 18:38] VITALS: BP 136/86; O2SAT 95
== END 2019-05-21 18:33 | disposition home or self-care (01) ==
LOC: ER 16:47
PROC: 2W3HX1Z Immobilization of Left Thumb using Splint (ICD-10-PCS; principal; 2019-05-21)
DX: S62.242A Displaced fracture of shaft of first metacarpal bone, left hand, initial encounter for closed fracture (principal)
CPT/HCPCS: 99284

== ENCOUNTER 2019-05-22 01:14 | Inpatient (IN) | payer OTHER ==
--- OUTSIDE RECORDS SUMMARY | 2019-05-22 01:17 | XMS REPORT ---
:1940 [facility] Address [address] [place] [address] Dr. Medina [address] [place] [id number] Care Team Providers Name Role Phone Unavailable Unavailable Unavailable Problems This patient has no known problems. Allergies, Adverse Reactions, Alerts This patient has no known allergies or adverse reactions. Medications This patient has no known medications.
[2019-05-22 04:02] LABS: Absolute Lymphocytes (CBC) 1.3 K/uL (0.7-4.9); Basophils % 0.3 % (0-1.3); Hematocrit 37.2 % (36.0-45.0); Lymphocytes % 11.8 % (15.3-44.8); RBC Red Blood Cell Count 3.74 M/uL (3.86-4.86)
[2019-05-22 04:10] LABS: Protime INR 1.06
[2019-05-22 04:23] LABS: ALT/SGPT 12 U/L (12-78); AST/SGOT 19 U/L (15-37); Albumin 2.9 g/dL (3.4-5.0); Alkaline Phosphatase 54 U/L (45-117); BUN Blood Urea Nitrogen 19 mg/dL (7-18); Bicarbonate 29 mmol/L (21-32); Bilirubin Direct 0.2 mg/dL (0-0.2); Bilirubin Total 0.6 mg/dL (0.2-1.0); Glucose Level 163 mg/dL (74-106); Magnesium 2.1 mg/dL (1.8-2.4); NT PRO-BNP 390 pg/mL (<450); Potassium 3.7 mmol/L (3.5-5.1); Protein, Total 6.7 g/dL (6.4-8.2); Sodium Level 141 mmol/L (136-145); Troponin (Emerg Dept Use Only) < 0.02 ng/mL (0.0-0.045)
[2019-05-22] MEDS ORDERED: MORPHINE 2 MG/ML SYR ONE (04:56)
[2019-05-22] MEDS ORDERED: ONDANSETRON 4 MG/2 ML VIAL ONE ×2 (04:56→16:23)
[2019-05-22] MEDS ORDERED: NA CHLORIDE 0.9% 1,000 ML ONE (04:56)
--- NOTE | 2019-05-22 05:57 | ER ---
Nurse's Notes [facility] Name: Lila Jenkins Age: 78 yrs Sex: Female : 1940 Arrival Date: 05/22/2019 Time: 01:20 Bed 6 Private MD: Diagnosis: Intertrochanteric fractufe right femur. Fracture proximal phalanx left thumb Presentation: 05/22 01:20 Presenting complaint: EMS states: Pt fell approximately an hour ago. Fall was jb4 unwitnessed. Pt is not on any blood thinners per facility. Reports right hip pain and has a quarter sized injury behind the right ear. 01:20 Care prior to arrival: None. Mechanism of Injury: Fall from standing position. Trauma jb4 event details: Injury occurred in the [facility]. 01:20 Acuity: MAREN 2 jb4 01:20 Method Of Arrival: EMS: [facility] 4 01:20 Transition of care: patient was received from another setting of care (long-term care [facility] facility), [place]. Onset of symptoms was May 22, 2019. Risk Assessment: Do you want to hurt yourself or someone else? Patient reports no desire to harm self or others. Initial Sepsis Screen: Does the patient meet any 2 criteria? No. Patient's initial sepsis screen is negative. Does the patient have a suspected source of infection? No. Patient's initial sepsis screen is negative. Trauma Activation: Alert Physician: ED Physician; Name: Bayron; Notified At: 01:39; Arrived At: 01:30 Physician: General Surgeon; Name: ; Notified At: 01:39; Arrived At: Physician: Radiology; Name: Argelia; Notified At: 01:39; Arrived At: 01:30 Physician: Respiratory; Name: ; Notified At: 01:39; Arrived At: Physician: Lab; Name: ; Notified At: 01:39; Arrived At: Historical: - Allergies: 01:20 No Known Allergies; jb4 - Home Meds: 01:20 Depakote 125 mg Oral TbEC 3 tabs 2 times per day [Active]; galantamine 12 mg Oral tab 1 jb4 tab 2 times per day [Active]; propafenone 225 mg Oral tab 1 tab every 8 hours [Active]; Remeron 30 mg Oral tab 1 tab once daily [Active]; trazodone 150 mg Oral tab 1 tab nightly [Active]; acetaminophen 325 mg Oral tab 2 tabs every 6 hours [Active]; - PMHx: 01:20 Alzheimers; Atrial Fib; Bronchitis; Depression; DYSPHAGIA; GERD; Hypertension; upper GI jb4 bleed; UTI; - Immunization history: Last tetanus immunization: unknown. - Coronavirus screen:: The patient has NOT traveled to [place] in the past 14 days. Proceed with normal triage process as indicated. The patient has NOT had contact with known/suspected case of Coronavirus? Proceed with normal triage procedures. - Social history:: Smoking status: unknown. - Ebola Screening: : No symptoms or risks identified at this time. Screenin:20 Abuse screen: Denies threats or abuse. Tuberculosis screening: No symptoms or risk jb4 factors identified. 01:20 Nutritional screening: No deficits noted. Fall Risk Secondary diagnosis (15 points) jb4 Alzheimer's, Gait- Impaired (20 pts.). Mental Status- Overestimates/Forgets Limitations (15 pts.). Total Aguilera Fall Scale indicates High Risk Score (45 or more points). Fall prevention measures have been instituted. Side Rails Up X 2 Placed Close to Nursing Station Frequent Obs/Assessments Occuring. Primary Survey: 01:20 NO uncontrolled hemorrhage observed. A: The patient is alert. Airway: patent, No jb4 supplemental oxygen in use on arrival. Oral cavity: clear, gag reflex present, Trachea midline. Breathing/Chest: Respiratory pattern: regular, Respiratory effort: spontaneous, unlabored, Chest inspection: symmetrical rise and fall of the chest. Circulation: Pulses: palpable right dorsalis pedis artery. Skin color: pink, Skin temperature: warm. Disability Alert. Exposure/Environment: All clothing and personal items were removed. Forensic evidence collection is not deemed to be indicated at this time. Items placed in patient belonging bag. 02:00 Reassessment Airway Airway Patent Oxygen No O2 Breathing/Chest Respiratory pattern jb4 Regular Respiratory effort Spontaneous Unlabored Chest inspection Symmetrical Circulation Color [place] Temperature Warm Dry. 07:15 Reassessment Airway Airway Patent Oxygen No O2 Breathing/Chest Respiratory pattern hb Regular Respiratory effort Spontaneous Unlabored Breath sounds Clear Chest inspection Symmetrical Circulation Pulses Palpable Color [place] Temperature Warm Dry Disability Alert. Secondary Survey: 01:20 HEENT: Head Other Pt has a quarter sized injury behind the right ear. Face No jb4 injury/deformity Eyes: No injury or deformity noted. Ears: clear Nose: clear Throat: No injury or deformity noted. with gag reflex present. Gastrointestinal: No deficits noted. : No signs and/or symptoms were reported regarding the genitourinary system. Musculoskeletal: No signs and/or symptoms reported regarding the musculoskeletal system. Musculoskeletal: Reports pain in right hip. Injury Description: Laceration sustained to right occipital area is clean, 0.5 to 2.5 cm long, was sustained 1-2 hours ago. Assessment: 01:20 General: Appears in no apparent distress. comfortable, Behavior is calm, cooperative, jb4 appropriate for age. Pain: Complains of pain in right occipital area and right hip Pain does not radiate. Pain currently is 4 out of 10 on a pain scale. Neuro: Level of Consciousness is awake, alert, obeys commands, Oriented to person, place. Cardiovascular: Patient's skin is warm and dry. Respiratory: Airway is patent Respiratory effort is even, unlabored, Respiratory pattern is regular, symmetrical. GI: No signs and/or symptoms were reported involving the gastrointestinal system. : No signs and/or symptoms were reported regarding the genitourinary system. EENT: No signs and/or symptoms were reported regarding the EENT system. Derm: Skin is intact, Skin is pink, warm \T\ dry. Musculoskeletal: Pt reports pain to the right hip. No bruising, discoloration, or deformity is noted to the right hip. 02:00 Reassessment: Patient appears in no apparent distress at this time. Patient and/or jb4 family updated on plan of care and expected duration. Pain level reassessed. Pt is resting in bed. Remain alert and oriented to self and place. Respirations are even and unlabored. 02:56 Reassessment: Patient appears in no apparent distress at this time. No changes from jb4 previously documented assessment. Patient and/or family updated on plan of care and expected duration. Pain level reassessed. Pt back from CT. 04:00 Reassessment: Patient appears in no apparent distress at this time. Patient and/or jb4 family updated on plan of care and expected duration. Pain level reassessed. Pt taken to CT. Remains A\T\O x2 to place and self. respirations even and unlabored. Right pedal pulse 3+, cap refill <3. 05:29 Reassessment: Patient appears in no apparent distress at this time. Patient and/or jb4 family updated on plan of care and expected duration. Pain level reassessed. Pt appears more comfortable after morphine administrations. Remains A\T\0 x2. Respirations are even and unlabored. 06:30 Reassessment: Patient appears in no apparent distress at this time. No changes from jb4 previously documented assessment. Patient and/or family updated on plan of care and expected duration. Pain level reassessed. 16 [address] put in [address]. 07:15 Reassessment: Patient appears in no apparent distress at this time. No changes from hb previously documented assessment. Patient and/or family updated on plan of care and expected duration. Pain level reassessed. 07:29 Reassessment: Attempted to call report to floor, receiving nurse unavailable at this hb time per unit sec Yasmeen. 07:53 Reassessment: Report called to Radha POLLACK. hb Vital Signs: 01:26 BP 132 / 58; Pulse 64; Resp 18; Temp 98.2(O); Pulse Ox 99% on R/A; oe 02:00 BP 123 / 55; Pulse 65; Resp 16; Pulse Ox 100% on R/A; jb4 03:00 BP 105 / 86; Pulse 67; Resp 16; Pulse Ox 98% on R/A; jb4 04:52 BP 174 / 68; Pulse 65; Resp 18; Pulse Ox 100% on R/A; jb4 05:30 BP 147 / 69; Pulse 67; Resp 16; Pulse Ox 100% on R/A; jb4 06:21 BP 162 / 71; Pulse 64; Resp 16; Pulse Ox 100% on R/A; jb4 07:09 BP 146 / 72; Pulse 66; Resp 16; Pulse Ox 100% ; sv 07:54 BP 147 / 75; Pulse 67; Resp 15; Temp 98.2(TE); Pulse Ox 97% on R/A; Pain 0/10; hb [place] Coma Score: 01:20 Eye Response: spontaneous(4). Verbal Response: oriented(5). Motor Response: obeys jb4 commands(6). Total: 15. 02:00 Eye Response: spontaneous(4). Verbal Response: oriented(5). Motor Response: obeys jb4 commands(6). Total: 15. Trauma Score (Adult): 01:20 Eye Response: spontaneous(1); Verbal Response: oriented(1); Motor Response: obeys jb4 commands(2); Systolic BP: > 89 mm Hg(4); Respiratory Rate: 10 to 29 per min(4); [place] Score: 15; Trauma Score: 12 02:00 Eye Response: spontaneous(1); Verbal Response: oriented(1); Motor Response: obeys jb4 commands(2); Systolic BP: > 89 mm Hg(4); Respiratory Rate: 10 to 29 per min(4); [place] Score: 15; Trauma Score: 12 07:15 Eye Response: spontaneous(1); Verbal Response: oriented(1); Motor Response: obeys hb commands(2); Systolic BP: > 89 mm Hg(4); Respiratory Rate: 10 to 29 per min(4); [place] Score: 15; Trauma Score: 12 07:54 Eye Response: spontaneous(1); Verbal Response: oriented(1); Motor Response: obeys hb commands(2); Systolic BP: > 89 mm Hg(4); Respiratory Rate: 10 to 29 per min(4); [place] Score: 15; Trauma Score: 12 ED Course: 01:20 Patient arrived in ED. ds1 01:20 Patient has correct armband on for positive identification. Placed in gown. Bed in low jb4 position. Call light in reach. Side rails up X2. Patient maintains SpO2 saturation greater than 95% on room air. 01:20 Patient maintains SpO2 saturation greater than 95% on room air. jb4 01:20 Thermoregulation: warm blanket given to patient. jb4 01:29 Lio Desai, RN is Primary Nurse. jb4 01:39 Triage completed. jb4 02:13 Franko Verma MD is Attending Physician. pkl 03:20 CT Head C Spine In Process Unspecified. EDMS 03:45 Missed attempt(s): 20 gauge in right antecubital area. Missed attempt(s): 22 gauge in jb4 right forearm. Bleeding controlled, band aid applied, catheter tip intact. 03:45 Initial lab(s) drawn, by me, sent to lab. jb4 04:05 Radiology exam delayed due to Patient currently having labs drawn as well as an EKG. kw1 04:16 Inserted saline lock: 20 gauge in right antecubital area, using aseptic technique. oe 04:19 Hip Right 2 View XRAY In Process Unspecified. EDMS 04:19 Pelvis XRAY In Process Unspecified. EDMS 04:20 XRAY Chest (1 view) In Process Unspecified. EDMS 04:42 Hip Right Wo Con In Process Unspecified. EDMS 05:52 Thompson Chang is Hospitalizing Provider. pkl 07:54 No provider procedures requiring assistance completed. Patient admitted, IV remains in hb place. Administered Medications: 04:55 Drug: Zofran 4 mg Route: IVP; Site: right antecubital; jb4 04:57 Drug: morphine 2 mg {Note: Rass score 0.} Route: IVP; Site: right antecubital; jb4 06:25 Drug: NS 0.9% 1000 ml Route: IV; Rate: 100 ml/hr; Site: left antecubital; jb4 Intake: 07:56 PO: 0ml; Total: 0ml. hb Output: 07:56 Urine: 375ml (Anderson); Total: 375ml. hb Outcome: 05:56 Decision to Hospitalize by Provider. pkl 07:54 Admitted to Tele accompanied by tech, via stretcher, room 429, with chart, Report hb called to Radha POLLACK 07:54 Condition: stable 07:54 Instructed on the need for admit, Demonstrated understanding of instructions. 07:55 Patient's length of stay in the Emergency Department was greater than 2 hours. hb Admission ordered, waiting room assignment and reportPatient's length of stay extended due to 08:23 Patient left the ED. hb Signatures: Dispatcher [employer] Linda Boateng, Franko Boyd RN, MD MD pkOlivia Ng ds1 Theodora Mendez RN RN hb Bryson, James, RN RN jb4 Lasha Rajput Kimberly kw1
--- NOTE | 2019-05-22 05:57 | EDPHYS ---
Physician Documentation [facility] Name: Lila Jenkins Age: 78 yrs Sex: Female : 1940 Arrival Date: 05/22/2019 Time: 01:20 Bed 6 Private MD: ED Physician Franko Verma HPI: 05/22 03:22 This 78 yrs old Female presents to ER via EMS with complaints of Fall Injury. pkl 03:22 Onset: The symptoms/episode began/occurred just prior to arrival. Associated injuries: pkl The patient sustained injury to the head, contusion, right hip. Patient was found on the floor by long term staff. Historical: - Allergies: 01:20 No Known Allergies; jb4 - Home Meds: 01:20 Depakote 125 mg Oral TbEC 3 tabs 2 times per day [Active]; galantamine 12 mg Oral tab 1 jb4 tab 2 times per day [Active]; propafenone 225 mg Oral tab 1 tab every 8 hours [Active]; Remeron 30 mg Oral tab 1 tab once daily [Active]; trazodone 150 mg Oral tab 1 tab nightly [Active]; acetaminophen 325 mg Oral tab 2 tabs every 6 hours [Active]; - PMHx: 01:20 Alzheimers; Atrial Fib; Bronchitis; Depression; DYSPHAGIA; GERD; Hypertension; upper GI jb4 bleed; UTI; - Immunization history: Last tetanus immunization: unknown. - Coronavirus screen:: The patient has NOT traveled to [place] in the past 14 days. Proceed with normal triage process as indicated. The patient has NOT had contact with known/suspected case of Coronavirus? Proceed with normal triage procedures. - Social history:: Smoking status: unknown. - Ebola Screening: : No symptoms or risks identified at this time. ROS: 03:22 Eyes: Negative for injury, pain, redness, and discharge, ENT: Negative for injury, pkl pain, and discharge, Neck: Negative for injury, pain, and swelling, Cardiovascular: Negative for chest pain, palpitations, and edema, Respiratory: Negative for shortness of breath, cough, wheezing, and pleuritic chest pain, Abdomen/GI: Negative for abdominal pain, nausea, vomiting, diarrhea, and constipation, Back: Negative for injury and pain, : Negative for injury, bleeding, discharge, and swelling. 03:22 MS/extremity: Positive for pain, of the right hip. 03:22 Skin: Negative for rash. 03:22 Neuro: Negative for altered mental status. Exam: 03:22 Head/Face: Normocephalic, atraumatic. Eyes: Pupils equal round and reactive to light, pkl extra-ocular motions intact. Lids and lashes normal. Conjunctiva and sclera are non-icteric and not injected. Cornea within normal limits. Periorbital areas with no swelling, redness, or edema. ENT: Nares patent. No nasal discharge, no septal abnormalities noted. Tympanic membranes are normal and external auditory canals are clear. Oropharynx with no redness, swelling, or masses, exudates, or evidence of obstruction, uvula midline. Mucous membranes moist. Neck: Trachea midline, no thyromegaly or masses palpated, and no cervical lymphadenopathy. Supple, full range of motion without nuchal rigidity, or vertebral point tenderness. No Meningismus. Chest/axilla: Normal chest wall appearance and motion. Nontender with no deformity. No lesions are appreciated. Cardiovascular: Regular rate and rhythm with a normal S1 and S2. No gallops, murmurs, or rubs. Normal PMI, no JVD. No pulse deficits. Respiratory: Lungs have equal breath sounds bilaterally, clear to auscultation and percussion. No rales, rhonchi or wheezes noted. No increased work of breathing, no retractions or nasal flaring. Abdomen/GI: Soft, non-tender, with normal bowel sounds. No distension or tympany. No guarding or rebound. No evidence of tenderness throughout. Back: No spinal tenderness. No costovertebral tenderness. Full range of motion. Skin: Warm, dry with normal turgor. Normal color with no rashes, no lesions, and no evidence of cellulitis. 03:22 Musculoskeletal/extremity: Extremities: grossly normal except: noted in the right hip: decreased ROM, pain, tenderness. 03:28 Neuro: Orientation: appropriate for stated age, Mentation: is normal, Cranial nerves: pkl grossly normal, Motor: is normal. Vital Signs: 01:26 BP 132 / 58; Pulse 64; Resp 18; Temp 98.2(O); Pulse Ox 99% on R/A; oe 02:00 BP 123 / 55; Pulse 65; Resp 16; Pulse Ox 100% on R/A; jb4 03:00 BP 105 / 86; Pulse 67; Resp 16; Pulse Ox 98% on R/A; jb4 04:52 BP 174 / 68; Pulse 65; Resp 18; Pulse Ox 100% on R/A; jb4 05:30 BP 147 / 69; Pulse 67; Resp 16; Pulse Ox 100% on R/A; jb4 06:21 BP 162 / 71; Pulse 64; Resp 16; Pulse Ox 100% on R/A; jb4 07:09 BP 146 / 72; Pulse 66; Resp 16; Pulse Ox 100% ; sv 07:54 BP 147 / 75; Pulse 67; Resp 15; Temp 98.2(TE); Pulse Ox 97% on R/A; Pain 0/10; hb [place] Coma Score: 01:20 Eye Response: spontaneous(4). Verbal Response: oriented(5). Motor Response: obeys jb4 commands(6). Total: 15. 02:00 Eye Response: spontaneous(4). Verbal Response: oriented(5). Motor Response: obeys jb4 commands(6). Total: 15. Trauma Score (Adult): 01:20 Eye Response: spontaneous(1); Verbal Response: oriented(1); Motor Response: obeys jb4 commands(2); Systolic BP: > 89 mm Hg(4); Respiratory Rate: 10 to 29 per min(4); [place] Score: 15; Trauma Score: 12 02:00 Eye Response: spontaneous(1); Verbal Response: oriented(1); Motor Response: obeys jb4 commands(2); Systolic BP: > 89 mm Hg(4); Respiratory Rate: 10 to 29 per min(4); [place] Score: 15; Trauma Score: 12 07:15 Eye Response: spontaneous(1); Verbal Response: oriented(1); Motor Response: obeys hb commands(2); Systolic BP: > 89 mm Hg(4); Respiratory Rate: 10 to 29 per min(4); [place] Score: 15; Trauma Score: 12 07:54 Eye Response: spontaneous(1); Verbal Response: oriented(1); Motor Response: obeys hb commands(2); Systolic BP: > 89 mm Hg(4); Respiratory Rate: 10 to 29 per min(4); [place] Score: 15; Trauma Score: 12 MDM: 02:13 Patient medically screened. pkl 05:50 Data reviewed: vital signs, nurses notes, lab test result(s), EKG, radiologic studies, pkl CT scan, plain films. ED course: Talked to Dr. Chang and Dr. Toure. Admit. 05/22 03:17 Order name: Basic Metabolic Panel; Complete Time: 05:08 pkl 05/22 03:17 Order name: CBC with Diff; Complete Time: 05:08 pkl 05/22 03:17 Order name: LFT's; Complete Time: 05:08 pkl 05/22 03:17 Order name: Magnesium; Complete Time: 05:08 pkl 05/22 03:17 Order name: NT PRO-BNP; Complete Time: 05:08 pkl 05/22 03:17 Order name: PT-INR; Complete Time: 05:08 pkl 05/22 02:05 Order name: CT Head C Spine snw 05/22 02:05 Order name: Hip Right 2 View XRAY snw 05/22 02:05 Order name: Pelvis XRAY snw 05/22 03:17 Order name: Troponin (emerg Dept Use Only); Complete Time: 05:08 pkl 05/22 03:17 Order name: XRAY Chest (1 view) pkl 05/22 04:10 Order name: Hip Right Wo Con EDMS 05/22 03:17 Order name: EKG; Complete Time: 03:19 pkl 05/22 03:17 Order name: Cardiac monitoring; Complete Time: 03:42 pkl 05/22 03:17 Order name: EKG - Nurse/Tech; Complete Time: 03:42 pkl 05/22 03:17 Order name: IV Saline Lock; Complete Time: 03:42 pkl 05/22 03:17 Order name: Labs collected and sent; Complete Time: 03:42 pkl 05/22 03:17 Order name: O2 Per Protocol; Complete Time: 03:42 pkl 05/22 03:17 Order name: O2 Sat Monitoring; Complete Time: 03:42 pkl 05/22 05:57 Order name: Anderson; Complete Time: 06:26 pkl Administered Medications: 04:55 Drug: Zofran 4 mg Route: IVP; Site: right antecubital; jb4 04:57 Drug: morphine 2 mg {Note: Rass score 0.} Route: IVP; Site: right antecubital; jb4 06:25 Drug: NS 0.9% 1000 ml Route: IV; Rate: 100 ml/hr; Site: left antecubital; jb4 Disposition: 05/22/19 05:56 Hospitalization ordered by Thompson Chang for Inpatient Admission. Preliminary diagnosis is Intertrochanteric fractufe right femur. Fracture proximal phalanx left thumb. - Bed requested for Telemetry/MedSurg (Inpatient). - Status is Inpatient Admission. hb - Condition is Stable. - Problem is new. - Symptoms are unchanged. Signatures: Dispatcher [employer] EDMS Franko Verma MD MD pkl Soraya Puga, RN RN Theodora Mendez RN RN Lio Desai RN RN jb4 Corrections: (The following items were deleted from the chart) 04:01 02:22 Hip Right 2 View+RAD.RAD.BRZ ordered. EDKY EDMS 04:42 03:25 CT RIGHT HIP WO CONTRAST ordered. EDKY EDMS 07:08 05:56 Hospitalization Ordered by Thompson Chang for Inpatient Admission. Preliminary cg diagnosis is Intertrochanteric fractufe right femur. Fracture proximal phalanx left thumb. Bed requested for Telemetry/MedSurg (Inpatient). Status is Inpatient Admission. Condition is Stable. Problem is new. Symptoms are unchanged. pkl 08:23 07:08 05/22/2019 05:56 Hospitalization Ordered by Thompson Chang for Inpatient hb Admission. Preliminary diagnosis is Intertrochanteric fractufe right femur. Fracture proximal phalanx left thumb. Bed requested for Telemetry/MedSurg (Inpatient). Status is Inpatient Admission. Condition is Stable. Problem is new. Symptoms are unchanged. cg
--- NOTE | 2019-05-22 06:53 | P.HP ---
Certification for Inpatient Patient admitted to: Inpatient With expected LOS: >2 Midnights Practitioner: I am a practitioner with admitting privileges, knowledge of patient current condition, hospital course, and medical plan of care. Services: Services provided to patient in accordance with Admission requirements found in Title 42 Section 412.3 of the Code of Federal Regulations Patient History Date of Service: 05/22/19 Reason for admission: Fall History of Present Illness: 78-year-old jail resident with a history of atrial fibrillation and advanced dementia, history of multiple falls was brought to the emergency department after a fall episode. Hip x-rays and CT of the hip report right comminuted fracture intertrochanteric fracture. Patient had multiple falls in the past, she sustained a left hip fracture about 4 months ago. She was in the ED yesterday after another episode of fall in which she sustained a comminuted fracture of the left 1st metacarpal. Patient has advanced dementia and could not provide any history. Allergies No Known Allergies Allergy (Verified 03/28/18 00:14) Home Medications: Propafenone [Rythmol*] 225 mg PO TID #90 tab 03/01/17 Galantamine HBr [Galantamine ER] 12 mg PO DAILY 03/28/18 Calcium Carbonate/Vitamin D3 [Calcium 600-Vit D3 400 Tablet] 1 each PO DAILY Divalproex Sodium [Depakote] 375 mg PO BID 01/13/19 Mirtazapine 30 mg PO BEDTIME 01/13/19 guaiFENesin [Guaifenesin] 100 mg PO Q6HP PRN 01/13/19 Enoxaparin Sodium [Lovenox 30 MG INJ*] 30 mg SQ DAILY #20 syr 01/19/19 - Past Medical/Surgical History Diabetic: No -: Atrial fibrillation -: UTI -: Mass on liver/unknown -: Bronchitis -: GERD -: Upper GI Bleed -: Hip pain -: Cholecystectomy -: Hysterectomy - Family History Family History: Reviewed- Non-Contributory - Social History Alcohol use: No CD- Drugs: No Caffeine use: Yes Review of Systems is unable to be obtained (Due to advanced dementia.) Physical Examination - Physical Exam General: In no apparent distress, Confused, Other (Awake) HEENT: Atraumatic, PERRLA, Mucous membr. moist/pink, Sclerae nonicteric Neck: Supple, JVD not distended Respiratory: Clear to auscultation bilaterally, Normal air movement Cardiovascular: No edema, Regular rate/rhythm, Normal S1 S2, No murmurs Capillary refill: <2 Seconds Gastrointestinal: Normal bowel sounds, Soft and benign, Non-distended, No tenderness Musculoskeletal: Tenderness (Right hip area) Integumentary: No rashes, No erythema Neurological: Other (She moves all extremities except the right lower extremity) - Studies Laboratory Data (last 24 hrs) 05/22/19 03:43: PT 12.5, INR 1.06 05/22/19 03:43: WBC 10.7, Hgb 12.5, Hct 37.2, Plt Count 166 05/22/19 03:43: Sodium 141, Potassium 3.7, BUN 19 H, Creatinine 0.89, Glucose 163 H, Magnesium 2.1, Total Bilirubin 0.6, AST 19, ALT 12, Alkaline Phosphatase 54 Assessment and Plan - Problems (Diagnosis) (1) Closed intertrochanteric fracture of right hip Current Visit: No Status: Acute Qualifiers: (2) Fall Current Visit: No Status: Acute Qualifiers: (3) Atrial fibrillation Onset Date: 03/01/17 Current Visit: No Status: Chronic Qualifiers: (4) Dementia Current Visit: No Status: Chronic Qualifiers: - Plan Admit to the medical floor. Consult orthopedics-Dr. Angulo has been informed. Continue Propafenone for atrial fibrillation. The patient is not anticoagulated due to frequent falls. Check UA to rule out UTI. Pain management as needed. Medical condition is optimal for surgery. - Advance Directives Does patient have a Living Will: No Does patient have a Durable POA for Healthcare: No
--- NOTE | 2019-05-22 08:04 | RAD REPORT ---
EXAM DESCRIPTION: Sebastian Single View05/22/2019 4:08 am CLINICAL HISTORY: Chest pain COMPARISON: 2018 FINDINGS: The lungs appear clear of acute infiltrate. The heart is mildly enlarged IMPRESSION: No acute abnormalities displayed
--- NOTE | 2019-05-22 08:08 | RAD REPORT ---
EXAM DESCRIPTION: RAD - Pelvis - 05/22/2019 4:09 am CLINICAL HISTORY: Pelvic pain status post injury FINDINGS: intratrochanteric fracture involves the right femur. The lesser trochanter is avulsed med ially. The fracture extends into the greater trochanter Varus angulation present at the fracture site No dislocation Osteoporosis Intramedullary selina and compression screw affix an old left femoral fracture
--- NOTE | 2019-05-22 08:52 | EKG ---
Test Date: 2019-05-22 Test Time: 04:06:35 Operational Test Mechanic: ROSANA MEASUREMENT RESULTS: Intervals: Rate: 70 [place]: QRSD: 86 QT: 404 QTc: 436 [place]: P: [place]: QRS: -11 T: 51 INTERPRETIVE STATEMENTS: Poor data quality Sinus rhythm Nonspecific ST and T wave abnormality Abnormal ECG Compared to ECG 01/13/2019 19:46:30 Incomplete right bundle-branch block no longer present Electronically Signed On 05-22-19 08:51:50 SHAPER OPERATOR by Kaleb Joseph
[2019-05-22 09:41] VITALS: BMI 19.2
[2019-05-22] MEDS ORDERED: MORPHINE 2 MG/ML SYR IV PRN (09:41)
[2019-05-22] MEDS ORDERED: NA CHLORIDE 0.9% 1,000 ML IV SCH (09:41)
[2019-05-22] MEDS ORDERED: ONDANSETRON 4 MG/2 ML VIAL IV PRN ×2 (09:41→17:36)
[2019-05-22] MEDS ORDERED: ACETAMINOPHEN 650MG/RECT SUPP PR PRN (09:41)
--- NOTE | 2019-05-22 09:57 | RAD REPORT ---
EXAM DESCRIPTION: CT - Hip Right Wo Con - 05/22/2019 5:00 am CLINICAL HISTORY: 78-year-old female with right hip pain status post unwitnessed fall TECHNIQUE: Axial CT imaging of the right hip was performed without intravenous contrast. Sagittal and coronal reconstructed images were then performed. The CT study is performed according to ALARA (a s low as reasonably achievable) or ALARA/IMAGE GENTLY, with automatic adjustment of mA and/or kV acco rding to patient size. Performed on: 05/22/2019 at 4:26 AM COMPARISON: Blank FINDINGS: Bones: There is a mildly displaced comminuted intertrochanteric fracture of the proximal r ight femur. The femoral neck is intact. The hip joint is preserved. The acetabulum is preserved. No p athologic lytic or sclerotic bone lesions are identified. Bone mineralization is normal. There are no significant degenerative or arthritic changes. Soft tissues: There is mild soft tissue swelling surrounding the proximal right femur. No definite yen int effusion is identified. There is a punctate calcification in the right kidney. No focal soft t issue mass lesions or fluid collections are seen. Occasional vascular calcifications are noted. IMPRESSION: 1. Mildly displaced, comminuted intertrochanteric fracture of the proximal right femur w ith surrounding soft tissue swelling. 2. There appears to be a punctate calcification within the right kidney. Electronically signed by: Radha Wayne DO 05/22/2019 4:54 AM INSURANCE BILLING SPECIALIST Due to temporary technical issues with the PACS/Fluency reporting system, reports are being signed by the in house radiologist as a courtesy to ensure prompt reporting. The interpreting radiologist is f ully responsible for the content of the report.
[2019-05-22] MEDS ORDERED: KCL 20 MEQ/100 mL IVPB 20 MEQ/100 ML BAG IV SCH (10:00)
--- NOTE | 2019-05-22 10:16 | RAD REPORT ---
EXAM DESCRIPTION: CT - Head C Spine Mpr Wo Con - 05/22/2019 4:58 am CLINICAL HISTORY: SMASH INJURY COMPARISON: CT head without contrast 03/19/2018 TECHNIQUE: Axial [address] imaging of the brain. Axial [address] imaging of the cervical spine. Reformatted coronal and sagittal images obtai enrique. This examination was performed according to our departmental dose optimization program, which include s automated exposure control, adjustment of the mA and/or kV according to patient size and/or use of iterative reconstruction technique. FINDINGS: CT Head: Moderately prominent ventricles and sulci due to cortical atrophy has increased since 2018. There is [id number] decreased white matter attenuation secondary to chronic microvascular ischemic dl nge. There is no intracranial bleed. No mass or midline shift. No edema. There is right anterior temp oral encephalomalacia due to remote infarct, unchanged since reference. Cerebellum and vermis appear normal. Fourth ventricle is midline. No hemorrhage within the posterior fossa. Intraorbital contents appear normal. Clear paranasal sinuses. Mastoid air cells are clear. Intact sku ll base and calvarium. CT cervical spine: There is broad reversal of cervical lordosis. There is no fracture within the uncinate process, later al masses, vertebral bodies, or posterior elements. Craniocervical and cervicothoracic junction align ment is preserved. There are significant hypertrophic endplate changes with endplate sclerosis and mu ltilevel disc space narrowing from C3 to C7. There is minimal right C3-4 and C4-5 degenerative forami nal narrowing. There is reversal of midcervical lordosis. There is no prevertebral edema. There is co ngenital bony fusion of the left C2-3 facet. Asymmetric right facet arthropathy. Parapharyngeal soft tissues and mucosal spaces appear normal. Included portions of the thyroid appear normal. Clear lung apices. IMPRESSION: 1. Moderate to marked senescent brain changes. No intracranial acute finding. 2. Moderate cervical spondylosis. No acute fracture or subluxation. Electronically signed by: Yoselyn Capps DO 05/22/2019 3:10 AM TIE TAPE MACHINE OPERATOR Due to temporary technical issues with the PACS/Fluency reporting system, reports are being signed by the in house radiologist as a courtesy to ensure prompt reporting. The interpreting radiologist is f alinly responsible for the content of the report.
--- NOTE | 2019-05-22 10:19 | RAD REPORT ---
EXAM DESCRIPTION: RAD - Hip Right 2 View - 05/22/2019 4:07 am CLINICAL HISTORY: 78-year-old female with hip pain TECHNIQUE: Two x-ray views of the right hip were performed on 05/22/2019 at 2:54 AM. COMPARISON: CT abdomen and pelvis performed on 02/28/2017 FINDINGS: There is a minimally displaced intertrochanteric fracture of the proximal right femur with acute angulation of the fracture fragments. The hip joint is intact. No significant degenerative or arthritic changes are identified. No lytic or sclerotic bone lesions are seen. The visualized portion s of the pelvis are grossly unremarkable. Bone mineralization is normal. No acute soft tissue abnormalities are identified. Occasional arterial vascular calcifications are no ikki. IMPRESSION: Minimally displaced intertrochanteric fracture of the proximal right femur with acute an gulation of the fracture fragments. Electronically signed by: Radha Wayne DO 05/22/2019 4:49 AM BOOT TURNER Due to temporary technical issues with the PACS/Fluency reporting system, reports are being signed by the in house radiologist as a courtesy to ensure prompt reporting. The interpreting radiologist is f ully responsible for the content of the report.
[2019-05-22] MEDS ORDERED: HYDRALAZINE HCL 20 MG/ML VIAL IV PRN (11:33)
--- NOTE | 2019-05-22 11:49 | RAD REPORT ---
EXAM DESCRIPTION: RAD - Hand Left 2 View - 05/22/2019 11:40 am CLINICAL HISTORY: s/p fall Pain and swelling COMPARISON: Hand Left 3 View dated 05/21/2019 FINDINGS: Comminuted fracture is seen involving the first metacarpal. Splint is in place. Fracture f ragment displacement is moderate. No bony bridging identified.
[2019-05-22 12:09] LABS: Urine Appearance CLEAR; Urine Bilirubin NEGATIVE (NEG); Urine Blood NEGATIVE (NEG); Urine Color YELLOW; Urine Glucose NEGATIVE (NEG); Urine Protein NEGATIVE (NEG); Urine pH 7.5 (5.0-7.0)
--- NOTE | 2019-05-22 12:15 | P.CNS ---
Date of Consult: 05/22/19 Reason for Consult: hip pain Chief Complaint: Fall History of Present Illness: 78 year old female has had multiple falls in a senior living recently, due to her dementia she gets up and walks not realizing her gait isn't strong. she fell last night at 11:30 pm, her last meal was 7:30 last night night. she is demented and awakens only for incoherent speech, she does not localize pain, she is attended by her caring daughters. past medical history of left hip fracture that was rodded around 01/22/2019. she has a history of AFib, she is not on anticoagulation, and has been cleared by hospitalist. Left hand, she fell on Wednesday05/14/2019 and fractured her left thumb, comminuted fracture of the first metatarsal, I was paced in a thumb spica splint Allergies No Known Allergies Allergy (Verified 03/28/18 00:14) Home Medications: Propafenone [Rythmol*] 225 mg PO TID #90 tab 03/01/17 Galantamine HBr [Galantamine ER] 24 mg PO DAILY 03/28/18 Calcium Carbonate/Vitamin D3 [Calcium 600-Vit D3 400 Tablet] 1 each PO DAILY Divalproex Sodium [Depakote] 4 cap PO BID 01/13/19 Acetaminophen [Tylenol] 2 tab PO Q6H PRN 05/22/19 Dextromethorphan HBr [Tussin Cough] 10 mg PO Q8H 05/22/19 Mirtazapine [Remeron] 1 tab PO BEDTIME 05/22/19 Trazodone [Desyrel*] 1 tab PO BEDTIME 05/22/19 - Past Medical/Surgical History Diabetic: No Past Medical History: Reviewed- Non-Contributory -: Atrial fibrillation -: UTI -: Mass on liver/unknown -: Bronchitis -: GERD -: Upper GI Bleed -: Hip pain -: Cholecystectomy -: Hysterectomy - Social History Smoking Status: Unknown if ever smoked Alcohol use: No CD- Drugs: No Caffeine use: Yes Review of Systems is unable to be obtained Physical Examination Temp Pulse Resp BP Pulse Ox 98.5 F 73 19 168/72 H 96 05/22/19 08:35 05/22/19 11:50 05/22/19 08:35 05/22/19 11:50 05/22/19 08:35 General: Demented, Confused HEENT: Atraumatic Respiratory: Normal air movement Cardiovascular: No edema Musculoskeletal: Other (left thumb spica splint re wrapped. ) Neurological: Dementia Laboratory Data (last 24 hrs) 05/22/19 03:43: PT 12.5, INR 1.06 05/22/19 03:43: WBC 10.7, Hgb 12.5, Hct 37.2, Plt Count 166 05/22/19 03:43: Sodium 141, Potassium 3.7, BUN 19 H, Creatinine 0.89, Glucose 163 H, Magnesium 2.1, Total Bilirubin 0.6, AST 19, ALT 12, Alkaline Phosphatase 54 Imagings Data: Exam Date: 05/22/19 EXAM DESCRIPTION: RAD - Hip Right 2 View - 05/22/2019 4:07 am CLINICAL HISTORY: 78-year-old female with hip pain TECHNIQUE: Two x-ray views of the right hip were performed on 05/22/2019 at 2:54 AM. COMPARISON: CT abdomen and pelvis performed on 02/28/2017 FINDINGS: There is a minimally displaced intertrochanteric fracture of the proximal right femur with acute angulation of the fracture fragments. The hip joint is intact. No significant degenerative or arthritic changes are identified. No lytic or sclerotic bone lesions are seen. The visualized portions of the pelvis are grossly unremarkable. Bone mineralization is normal. No acute soft tissue abnormalities are identified. Occasional arterial vascular calcifications are noted. IMPRESSION: Minimally displaced intertrochanteric fracture of the proximal right femur with acute angulation of the fracture fragments. EXAM DESCRIPTION: RAD - Hand Left 2 View - 05/22/2019 11:40 am CLINICAL HISTORY: s/p fall Pain and swelling COMPARISON: Hand Left 3 View dated 05/21/2019 FINDINGS: Comminuted fracture is seen involving the first metacarpal. Splint is in place. Fracture fragment displacement is moderate. No bony bridging identified. - Problems (1) Closed intertrochanteric fracture of right hip Onset Date: 05/21/19 Current Visit: No Status: Acute Plan: we will schedule right hip IM rodding and left hand CRPP today at 5:00pm Qualifiers:
[2019-05-22 12:30] LABS: Urine Bacteria <20 /HPF (<20); Urine Culture Reflex Order REFLEXED; Urine Mucus HEAVY /HPF (NONE SEEN); Urine RBC <5 /HPF (NONE SEEN)
[2019-05-22] MEDS: PROPAFENONE HCL 150 MG TAB PO SCH ×2 (13:42→21:00)
--- NOTE | 2019-05-22 14:39 | PN ---
Date of Progress Note: 05/22/2019 Subjective: Patient seen and examined. Chart reviewed and case discussed with RN and Dr. Coffey. Patient is demented, did not complain of any pain. Daughter at the bedside. Information gathered f rom chart and daughter. Medications: List reviewed. Code Status: Full. Physical Examination: Vital Signs: Temperature 98.5, heart rate 67, respirations 15, blood pressure 147/75, O2 saturation 97% on room air. General: Asleep but arousable elderly female, demented. Does not appear to be in any acute distress , frail, cachectic. BMI 19. CV: S1, S2. Irregularly irregular. Peripheral pulses present. Respiratory: Moving air well bilaterally. No wheezing or stridor. Gastrointestinal: Abdomen is soft, nontender, nondistended. Positive bowel sounds. Extremities: No clubbing, cyanosis. Patient has mild edema of the right hip. Musculoskeletal: Right lower extremity is short and rotated. Neurologic: Nonfocal. Moves all 4 extremities. Right lower extremity motion limited due to pain. Laboratory Data: Sodium 141, potassium 3.7, chloride 106, CO2 of 29, BUN 19, creatinine 0.89. Tropo jaydon less than 0.02. WBC 10.7, H and H 12.5 and 37.2, platelets 166, neutrophils 77%. INR 1.06. Imaging Studies: Hip CT shows mildly displaced comminuted intertrochanteric fracture of the proximal right femur with surrounding soft tissue swelling, punctate calcification within the right kidney. Assessment: A 78-year-old female with: 1.Closed intertrochanteric fracture of the right hip, nondisplaced on initial encounter. Patient wi ll be evaluated by Orthopedics for possible surgery today. Patient is medically optimized, not on an y blood thinners. 2.Status post fall. We will continue on fall precautions. 3.Atrial fibrillation, chronic, permanent. Patient is not on anticoagulation due to history of fall s and GI bleed. We will continue propafenone. 4.Dementia, Alzheimer's type, early onset without behavioral disturbance. Patient will likely have postsurgical delirium. Plan: Anticipate surgery. UA is still pending. Patient will likely return to nursing facility post discharge. SA/MODL Voice ID: [id number] Report ID: [id number]
[2019-05-22] MEDS ORDERED: TRANEXAMIC ACID 1,000 MG in NA CHLORIDE 0.9% 50 ML IV ONE (16:00)
[2019-05-22] MEDS ORDERED: Ringers Lactate 1,000 ML IV ONE (16:23)
[2019-05-22] MEDS ORDERED: MIDAZOLAM HCL 2 MG/2 ML INJ ONE (16:23)
[2019-05-22] MEDS ORDERED: FENTANYL CITR 100 MCG/2 ML ONE (16:23)
[2019-05-22] MEDS ORDERED: ETOMIDATE 20 MG/10 ML VIAL IV ONE (16:24)
[2019-05-22] MEDS ORDERED: MORPHINE 10 MG/ML VIAL ONE (16:24)
[2019-05-22] MEDS ORDERED: KETOROLAC 30 MG/ML INJ ONE (16:24)
[2019-05-22] MEDS ORDERED: CEFAZOLIN/SWI 1gm 1 GM/10 ML SYR ONE (17:03)
[2019-05-22] MEDS ORDERED: HYDROCODONE/APAP 5/325 MG TAB PO PRN (17:37)
[2019-05-22] MEDS ORDERED: CEFAZOLIN/SWI 1gm 1 GM/10 ML SYR IVP SCH (18:00)
[2019-05-22] MEDS: HYDRALAZINE HCL 20 MG/ML VIAL ONE ×2 (18:18→18:45)
[2019-05-22] MEDS: MEPERIDINE HCL 25 MG/0.5 ML ONE ×2 (18:25→18:35)
--- NOTE | 2019-05-22 19:05 | RAD REPORT ---
EXAM DESCRIPTION: RAD - Pelvis - 05/22/2019 6:49 pm CLINICAL HISTORY: S P RIGHT HIP RODDING Pain and swelling COMPARISON: Pelvis dated 05/22/2019; Hip Right Wo Con dated 05/22/2019; Hip Right 2 View dated 05/22/19 20; Hand Left 2 View dated 05/22/2019 FINDINGS: Proximal right femoral nail is present. Soft tissue swelling is seen with skin donovan lat erally. Left proximal femoral nail is also present without complication.
[2019-05-22] MEDS: NACHLORIDE 0.45% 1,000 ML IV SCH (20:26)
[2019-05-22] MEDS: MIRTAZAPINE 15 MG TAB PO SCH (21:00)
[2019-05-22] MEDS: DIVALPROEX NA 125 MG CAP PO SCH (21:00)
[2019-05-22] MEDS: TRAZODONE 150 MG TAB PO SCH (21:00)
--- NOTE | 2019-05-22 22:55 | CON ---
Reason For Consultation: Right IT hip fracture. History Of Present Illness: Ms. Jenkins is well known to us from her previous left IT hip fractur e approximately 4 months ago. The day prior to her presentation for the right IT hip frac ture, she sustained a comminuted left thumb fracture. She is quite demented in the senior care and unable to be controlled. She sustained these injuries. We were asked to evaluate her for this. As she was cardiac cleared 4 months ago, there have been no symptoms, there is no substantial change in her medical status, although obviously her dementia seems to have progressed. We will proceed with a right IT hip rodding and closed reduction and splinting of her thumb. She is not a candidate for operative intervention over time, this clearly would damage to herself. SYD/WILDA Voice ID: [id number] Report ID: [id number]
[2019-05-23] MEDS ORDERED: CEFAZOLIN/SWI 1gm 1 GM/10 ML SYR IVP SCH (01:00)
--- NOTE | 2019-05-23 04:11 | OP ---
Surgeon: Emanuel Coffey MD Marketing Operations Associate: MO Rodriguez Preoperative Diagnosis: Right intertrochanteric hip fracture. Postoperative Diagnosis: Right intertrochanteric hip fracture. Procedure Performed: Intramedullary rodding, right intertrochanteric hip fracture. Complications: None. Disposition: Recovery room, stable. Estimated Blood Loss: 15 cc. Operative Report In Detail: Patient was taken to the operative suite, placed in supine position, ind uced anesthesia, placed on the fracture table. Right hip reduced. Patient is well known to us from having a previous left IT hip fracture, treated with intramedullary rodding some 4 months prior. She also sustained a left comminuted proximal phalanx fracture of her left thumb. This occurred the day prior to her sustaining left IT hip fracture. Patient is quite demented. Incision made over the ti p of the greater trochanter. A guide tip ball wire was passed, 11 x 130 selina passed without difficult y after single stage reaming. 95 lag screw placed in the subchondral bone of the femoral head and ve rified on biplane radiography. Distal interlocking screw placed 36 mm. Layered closure was performe d. Attention was then turned to the thumb. The patient is quite demented. The splint was reapplied . The patient previously moved immediately preop. It was padded with extra padding and overwrapped with a 2-inch fiberglass roll of casting tape. Patient tolerated the procedure well, was reversed to anesthesia and should be in the recovery room in stable condition. SYD/WILDA Voice ID: [id number] Report ID: [id number]
[2019-05-23 05:12] LABS: Protime INR 0.99
[2019-05-23 05:14] LABS: Absolute Lymphocytes (CBC) 2.1 K/uL (0.7-4.9); Basophils % 0.4 % (0-1.3); Lymphocytes % 22.6 % (15.3-44.8); MPV 10.5 fL (7.6-11.3); RBC Red Blood Cell Count 3.08 M/uL (3.86-4.86)
[2019-05-23] MEDS: MORPHINE 2 MG/ML SYR IV PRN ×2 (05:27→19:15)
[2019-05-23 05:33] LABS: Magnesium 1.9 mg/dL (1.8-2.4); Phosphorus 2.2 mg/dL (2.5-4.9); Potassium 3.4 mmol/L (3.5-5.1); Thyroid Stimulating Hormone 0.987 uIU/mL (0.360-3.740)
[2019-05-23 06:00] LABS: Blood Morphology Comment NOT SEEN (NOT SEEN); Platelet Estimate ADEQ
[2019-05-23] MEDS: HOME MED 1 EA UNK (Galantamine Hbr [Galantamine Er] 24 MG) PO SCH (09:00)
[2019-05-23] MEDS: NACHLORIDE 0.45% 1,000 ML IV SCH ×2 (09:48→16:17)
[2019-05-23] MEDS: DIVALPROEX NA 125 MG CAP PO SCH ×2 (09:49→20:45)
[2019-05-23] MEDS: PROPAFENONE HCL 150 MG TAB PO SCH ×3 (09:49→20:45)
[2019-05-23] MEDS: ENOXAPARIN 40 MG/0.4 ML SQ SCH (14:36)
[2019-05-23] MEDS ORDERED: CEFTRIAXONE/SWI 1gm 1 GM/10 ML SYR IVP SCH (15:00)
--- NOTE | 2019-05-23 15:42 | P.PN ---
Subjective Date of Service: 05/23/19 Primary Care Provider: long term Chief Complaint: Fall Subjective: Demented Physical Examination - Vital Signs Temperature: 99.2 F Blood Pressure: 149/66 Pulse: 93 Respirations: 18 Pulse Ox (%): 95 - Physical Exam General: Alert, Demented HEENT: Atraumatic Neck: Supple Respiratory: Clear to auscultation bilaterally, Normal air movement Cardiovascular: Normal pulses, Regular rate/rhythm Gastrointestinal: Normal bowel sounds, Soft and benign, Non-distended Integumentary: Other (Patient has cast to the left upper extremity. Postop changes noted to the right hip) Neurological: Normal speech, Normal strength at 5/5 x4 extr, Normal tone, Dementia - Studies Medications List Reviewed: Yes Assessment & Plan Discharge Plan: [facility] Plan to discharge in: 72 Hours Physician Review Additional Text: Impression: Closed intertrochanteric fracture of the right hip, nondisplaced on initial encounter status post fall Chronic atrial fibrillation Dementia Alzheimer's type Plan: Closed intertrochanteric fracture of the right hip, nondisplaced on initial encounter status post fall: Patient be transferred to the floor. Will adjust IV fluids. Medications reviewed and adjusted. Physical therapy to be initiated. Will assess to see what patient is able to do. Patient will go back to the [facility] at discharge. Chronic atrial fibrillation: Continue medication. Provide DVT prophylaxis. Dementia Alzheimer's type: Will monitor closely. Will obtain and restart home medication. Time Spent Managing Pts Care (In Minutes): 55
--- NOTE | 2019-05-23 18:43 | P.PN ---
Subjective Date of Service: 05/23/19 Primary Care Provider: residential Chief Complaint: Fall Subjective: No new changes Review of Systems is unable to be obtained Physical Examination - Vital Signs Temperature: 99.7 F Blood Pressure: 134/58 Pulse: 98 Respirations: 19 Pulse Ox (%): 95 - Physical Exam General: Alert, Demented, Confused Musculoskeletal: Cast in place, Other - Studies Medications List Reviewed: Yes Assessment And Plan - Current Problems (Diagnosis) (1) Closed intertrochanteric fracture of right hip Onset Date: 05/21/19 Current Visit: No Status: Acute Plan: s/p right hip IM rodding POD1, she is to remain [facility] only for 6 weeks, she will need anticoagulation 28 days post op, follow up in the office 2 weeks post op with xrays from nursing facility. she will keep her cast splint on 6 weeks. Qualifiers: Encounter type: subsequent encounter Fracture alignment: displaced Fracture healing: with routine healing Qualified Code(s): S72.141D - Displaced intertrochanteric fracture of right femur, subsequent encounter for closed fracture with routine healing Discharge Plan: Snf Plan to discharge in: 24 Hours Physician Review Additional Text: Impression: Closed intertrochanteric fracture of the right hip, nondisplaced on initial encounter status post fall Chronic atrial fibrillation Dementia Alzheimer's type Plan: Closed intertrochanteric fracture of the right hip, nondisplaced on initial encounter status post fall: Patient be transferred to the floor. Will adjust IV fluids. Medications reviewed and adjusted. Physical therapy to be initiated. Will assess to see what patient is able to do. Patient will go back to the skilled nursing at discharge. Chronic atrial fibrillation: Continue medication. Provide DVT prophylaxis. Dementia Alzheimer's type: Will monitor closely. Will obtain and restart home medication.
[2019-05-23] MEDS: TRAZODONE 150 MG TAB PO SCH (20:45)
[2019-05-23] MEDS: MIRTAZAPINE 15 MG TAB PO SCH (20:46)
[2019-05-24 05:57] LABS: Absolute Lymphocytes (CBC) 2.6 K/uL (0.7-4.9); Basophils % 0.4 % (0-1.3); Hematocrit 27.5 % (36.0-45.0); Lymphocytes % 21.5 % (15.3-44.8); MPV 9.9 fL (7.6-11.3); RBC Red Blood Cell Count 2.73 M/uL (3.86-4.86)
[2019-05-24 06:12] LABS: BUN Blood Urea Nitrogen 17 mg/dL (7-18); Bicarbonate 27 mmol/L (21-32); Glucose Level 112 mg/dL (74-106); Phosphorus 2.4 mg/dL (2.5-4.9); Potassium 3.7 mmol/L (3.5-5.1); Sodium Level 140 mmol/L (136-145)
[2019-05-24] MEDS: NACHLORIDE 0.45% 1,000 ML IV SCH (08:51)
[2019-05-24] MEDS: DIVALPROEX NA 125 MG CAP PO SCH ×2 (08:52→20:20)
[2019-05-24] MEDS: ENOXAPARIN 40 MG/0.4 ML SQ SCH (08:52)
[2019-05-24] MEDS: PROPAFENONE HCL 150 MG TAB PO SCH ×3 (08:54→20:20)
[2019-05-24] MEDS ORDERED: POTASSIUM CL SA 10 MEQ TAB PO ONE (09:00)
[2019-05-24] MEDS: HOME MED 1 EA UNK (Galantamine Hbr [Galantamine Er] 24 MG) PO SCH (09:00)
[2019-05-24] MEDS: POTASS/SODIUM PHOSPHATE 1 PKT POWD.PACK PO SCH (10:36)
[2019-05-24] MEDS: MORPHINE 2 MG/ML SYR IV PRN (10:46)
--- NOTE | 2019-05-24 10:53 | P.PN ---
Subjective Date of Service: 05/24/19 Primary Care Provider: alf Chief Complaint: Fall Subjective: No new changes <Atul Barrera - Last Filed: 05/24/19 10:52> Date of Service: 05/26/19 <Franko Verma - Last Filed: 05/26/19 01:59> Review of Systems is unable to be obtained <Atul Barrera - Last Filed: 05/24/19 10:52> Physical Examination - Vital Signs Temperature: 98.6 F Blood Pressure: 146/70 Pulse: 86 Respirations: 18 Pulse Ox (%): 98 - Physical Exam General: Demented - Studies Medications List Reviewed: Yes <Atul Barrera - Last Filed: 05/24/19 10:52> Assessment & Plan - Problems (Diagnosis) (1) Closed intertrochanteric fracture of right hip Onset Date: 05/21/19 Status: Acute Plan: s/p right hip IM rodding POD1, she is to remain [facility] only for 6 weeks, she will need anticoagulation 28 days post op, follow up in the office 2 weeks post op with xrays from nursing facility. she will keep her cast splint on 6 weeks. she is going back to her shelter care home Qualifiers: Encounter type: subsequent encounter Fracture alignment: displaced Fracture healing: with routine healing Qualified Code(s): S72.141D - Displaced intertrochanteric fracture of right femur, subsequent encounter for closed fracture with routine healing Physician Review Additional Text: Impression: Closed intertrochanteric fracture of the right hip, nondisplaced on initial encounter status post fall Chronic atrial fibrillation Dementia Alzheimer's type Plan: Closed intertrochanteric fracture of the right hip, nondisplaced on initial encounter status post fall: Patient be transferred to the floor. Will adjust IV fluids. Medications reviewed and adjusted. Physical therapy to be initiated. Will assess to see what patient is able to do. Patient will go back to the care home at discharge. Chronic atrial fibrillation: Continue medication. Provide DVT prophylaxis. Dementia Alzheimer's type: Will monitor closely. Will obtain and restart home medication. <Atul Barrera - Last Filed: 05/24/19 10:52>
[2019-05-24] MEDS ORDERED: TRAMADOL HCL 50 MG TAB PO PRN (11:31)
--- NOTE | 2019-05-24 11:36 | P.PN ---
Subjective Date of Service: 05/24/19 Primary Care Provider: long-term Chief Complaint: Fall Subjective: Demented Physical Examination - Vital Signs Temperature: 98.6 F Blood Pressure: 146/70 Pulse: 86 Respirations: 18 Pulse Ox (%): 98 - Physical Exam General: Alert, Demented HEENT: Atraumatic Neck: Supple Respiratory: Clear to auscultation bilaterally, Normal air movement Cardiovascular: Normal pulses, Regular rate/rhythm Integumentary: Other (Postop changes to the right hip) Neurological: Dementia - Studies Medications List Reviewed: Yes Assessment & Plan Discharge Plan: Alf Plan to discharge in: 24 Hours Physician Review Additional Text: Impression: Closed intertrochanteric fracture of the right hip, nondisplaced on initial encounter status post fall Chronic atrial fibrillation Dementia Alzheimer's type Plan: Closed intertrochanteric fracture of the right hip, nondisplaced on initial encounter status post fall: Will discontinue Anderson catheter. Continue DVT prophylaxis. Will discontinue IV pain medication. Will transition to oral medication. Patient with severe dementia. Address plan of care with daughter. Also address advanced directives. Patient is do not resuscitate. Patient previously had left hip surgery in December of last year. Now with right hip surgery for fall. Patient's likely new baseline will be limited mobility. This may further decline with her dementia. This was addressed in detail. Daughter understands this. Will hopefully transition patient back to the [facility] tomorrow. Will provide education and information about hospice as the patient will likely require this in the near future if her condition continues to decline. Daughter understands expectations. Chronic atrial fibrillation: Continue medication. Provide DVT prophylaxis. Dementia Alzheimer's type: Will monitor closely. Continue with medication. Advanced directives readdress. Daughter reports patient is do not resuscitate. Time Spent Managing Pts Care (In Minutes): 55
[2019-05-24] MEDS: MIRTAZAPINE 15 MG TAB PO SCH (20:20)
[2019-05-24] MEDS: TRAZODONE 150 MG TAB PO SCH (20:21)
[2019-05-25 06:03] LABS: BUN Blood Urea Nitrogen 16 mg/dL (7-18); Bicarbonate 29 mmol/L (21-32); Glucose Level 114 mg/dL (74-106); Phosphorus 2.7 mg/dL (2.5-4.9); Sodium Level 142 mmol/L (136-145)
[2019-05-25 08:08] VITALS: BP 116/57; TEMP 98.2
[2019-05-25 08:49] LABS: Absolute Lymphocytes (CBC) 1.6 K/uL (0.7-4.9); Basophils % 0.1 % (0-1.3); Hematocrit 26.3 % (36.0-45.0); Lymphocytes % 11.7 % (15.3-44.8); MPV 9.4 fL (7.6-11.3); RBC Red Blood Cell Count 2.57 M/uL (3.86-4.86)
[2019-05-25] MEDS: HOME MED 1 EA UNK (Galantamine Hbr [Galantamine Er] 24 MG) PO SCH (09:00)
[2019-05-25] MEDS: ENOXAPARIN 40 MG/0.4 ML SQ SCH (09:34)
[2019-05-25] MEDS: DIVALPROEX NA 125 MG CAP PO SCH (09:34)
[2019-05-25] MEDS: PROPAFENONE HCL 150 MG TAB PO SCH (09:38)
--- NOTE | 2019-05-25 09:57 | P.DS ---
Admission Date: 05/22/19 Discharge Date: 05/25/19 Primary Care Provider: skilled nursing Disposition: TRANSFER TO [facility] Discharge Condition: GOOD Reason for Admission: Fall Consultations: Orthopedics-Dr. Coffey Procedures: Hand xray: COMPARISON: Hand Left 3 View dated 05/21/2019 FINDINGS: Comminuted fracture is seen involving the first metacarpal. Splint is in place. Fracture fragment displacement is moderate. No bony bridging identified. CT Head: FINDINGS: CT Head: Moderately prominent ventricles and sulci due to cortical atrophy has increased since 2018. There is mftytcgi-hp-eaowgs decreased white matter attenuation secondary to chronic microvascular ischemic change. There is no intracranial bleed. No mass or midline shift. No edema. 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 Cerebellum and vermis appear normal. Fourth ventricle is midline. No hemorrhage within the posterior fossa. Intraorbital contents appear normal. Clear paranasal sinuses. Mastoid air cells are clear. Intact skull base and calvarium. CT cervical spine: There is broad reversal of cervical lordosis. There is no fracture within the uncinate process, lateral masses, vertebral bodies, or posterior elements. Craniocervical and cervicothoracic junction alignment is preserved. There are significant hypertrophic endplate changes with endplate sclerosis and multilevel disc space narrowing from C3 to C7. There is minimal right C3-4 and C4-5 degenerative foraminal narrowing. There is reversal of midcervical lordosis. There is no prevertebral edema. 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 Asymmetric right facet arthropathy. Parapharyngeal soft tissues and mucosal spaces appear normal. Included portions of the thyroid appear normal. Clear lung apices. IMPRESSION: 1. Moderate to marked senescent brain changes. No intracranial acute finding. 2. Moderate cervical spondylosis. No acute fracture or subluxation. CT Hip: FINDINGS: Bones: There is a mildly displaced comminuted intertrochanteric fracture of the proximal right femur. The femoral neck is intact. The hip joint is preserved. The acetabulum is preserved. No pathologic lytic or sclerotic bone lesions are identified. Bone mineralization is normal. There are no significant degenerative or arthritic changes. Soft tissues: There is mild soft tissue swelling surrounding the proximal right femur. No definite joint effusion is identified. There is a punctate calcification in the right kidney. No focal soft tissue mass lesions or fluid collections are seen. Occasional vascular calcifications are noted. IMPRESSION: 1. Mildly displaced, comminuted intertrochanteric fracture of the proximal right femur with surrounding soft tissue swelling. 2. There appears to be a punctate calcification within the right kidney. Surgery: Surgeon: Emanuel Coffey MD Hand Buffing Wheel Former: MO Rodriguez Preoperative Diagnosis: Right intertrochanteric hip fracture. Postoperative Diagnosis: Right intertrochanteric hip fracture. Procedure Performed: Intramedullary rodding, right intertrochanteric hip fracture. Complications: None. Estimated Blood Loss: 15 cc. Impression: Closed intertrochanteric fracture of the right hip, nondisplaced on initial encounter status post fall, status post intra medullary rodding Comminuted fracture to the 1st metacarpal Chronic atrial fibrillation not on chronic anti coagulation therapy Dementia Alzheimer's type History of multiple falls Postoperative anemia Brief History of Present Illness: 78-year-old female with history of Alzheimer's dementia, atrial fibrillation not on chronic anti coalition therapy. Patient has had multiple falls at the senior living. She unfortunately suffered a fracture to the right hip. Patient was admitted for treatment. Hospital Course: Patient presented with a closed right intertrochanteric fracture. This was after a fall. Patient has had multiple falls. Patient with prior history of left hip surgery in December. Since that time her mobility has been compromise. Patient was seen and evaluated by orthopedics. Surgical intervention was required. Intra medullary rodding was done. Patient tolerated procedure well. Patient try to work with physical therapy. Plan of care discussed with daughter. Daughter understands that the patient may not return back to her baseline as she had been in compromise in her mobility even prior to surgery. At discharge patient will return back to the senior living. Patient may continue with physical therapy there. Pain medication-tramadol 50 mg 3 times a day as needed for pain will be provided, dispensed 20 pills. Patient will also continue with Lovenox 40 mg subcu daily for the next 25 days for DVT prophylaxis status post hip repair. Advanced directives address in detail with the daughter. Patient is do not resuscitate. Patient will follow up with orthopedics in 3 weeks. Repeat x-rays will be done at that time. Fall precautions in place. Patient with left comminuted fracture to the left 1st metacarpal. Cast in place. Patient will follow up with orthopedics in 3 weeks. Repeat x-rays will be done at that time. Patient with chronic atrial fibrillation. Patient not on prior chronic anti coagulation therapy due to risk of fall and bleeding. At discharge patient will continue with her medication including Rythmol 225 mg 3 times a day. Due to recent surgery patient will continue with Lovenox 40 mg subcu daily for at least 25 days. No need for further chronic anti coagulation therapy in the future due to risk of fall and bleeding. Patient with underlying chronic dementia Alzheimer's type. Patient will continue with her current medications-Galantamine 24 mg daily, Depakote 125 mg 4 pills twice daily, Remeron 30 mg at bedtime and trazodone 150 mg at bedtime. Advanced directives address in detail with daughter. Patient is do not resuscitate. Due to her chronic Alzheimer's her condition for improvement may worsen. If this continues worsen will need to consider hospice. Information to daughter provided. Daughter understands this and plan of care. This can be further addressed at the senior living. Patient with postoperative anemia. This has remained stable. Patient may continue with multi vitamin with iron daily. Recommend to recheck CBC in 1 week. Vital Signs/Physical Exam: Temp Pulse Resp BP Pulse Ox 98.2 F 94 H 16 116/57 L 94 05/25/19 08:00 05/25/19 08:00 05/25/19 08:00 05/25/19 08:00 05/25/19 08:00 General: Alert, Cooperative, Demented HEENT: Atraumatic Neck: Supple Respiratory: Clear to auscultation bilaterally, Normal air movement Cardiovascular: Normal pulses, Regular rate/rhythm Gastrointestinal: No rebound, No guarding Musculoskeletal: Other (Casting to the left arm) Neurological: Normal speech, Normal strength at 5/5 x4 extr, Normal tone, Dementia Laboratory Data at Discharge: WBC 13.2 K/uL (4.3-10.9) H 05/25/19 07:57 Hgb 8.9 g/dL (12.0-15.0) L 05/25/19 07:57 Hct 26.3 % (36.0-45.0) L 05/25/19 07:57 Plt Count 156 K/uL (152-406) 05/25/19 07:57 PT 11.7 SECONDS (9.5-12.5) 05/23/19 04:35 INR 0.99 05/23/19 04:35 Sodium 142 mmol/L (136-145) 05/25/19 05:13 Potassium 4.0 mmol/L (3.5-5.1) 05/25/19 05:13 BUN 16 mg/dL (7-18) 05/25/19 05:13 Creatinine 0.54 mg/dL (0.55-1.3) L 05/25/19 05:13 Glucose 114 mg/dL (74-106) H 05/25/19 05:13 Phosphorus 2.7 mg/dL (2.5-4.9) 05/25/19 05:13 Magnesium 2.0 mg/dL (1.8-2.4) 05/24/19 05:33 Total Bilirubin 0.6 mg/dL (0.2-1.0) 05/22/19 03:43 AST 19 U/L (15-37) 05/22/19 03:43 ALT 12 U/L (12-78) 05/22/19 03:43 Alkaline Phosphatase 54 U/L (45-117) 05/22/19 03:43 Home Medications: Propafenone [Rythmol*] 225 mg PO TID #90 tab 03/01/17 Galantamine HBr [Galantamine ER] 24 mg PO DAILY 03/28/18 Calcium Carbonate/Vitamin D3 [Calcium 600-Vit D3 400 Tablet] 1 each PO DAILY Divalproex Sodium [Depakote] 4 cap PO BID 01/13/19 Acetaminophen [Tylenol] 2 tab PO Q6H PRN 05/22/19 Mirtazapine [Remeron] 1 tab PO BEDTIME 05/22/19 Trazodone [Desyrel*] 1 tab PO BEDTIME 05/22/19 Enoxaparin Sodium [Lovenox 40 MG INJ] 40 mg SQ DAILY #25 syr 05/25/19 Multivitamin with Iron [Multivitamins with Iron] 1 each PO DAILY #90 tablet traMADol HCL [Ultram*] 50 mg PO TID PRN #20 tab 05/25/19 New Medications: Enoxaparin Sodium [Lovenox 40 MG INJ] 40 mg SQ DAILY #25 syr Multivitamin with Iron [Multivitamins with Iron] 1 each PO DAILY #90 tablet traMADol HCL [Ultram*] 50 mg PO TID PRN #20 tab PRN Reason: Pain Patient Discharge Instructions: 1. Patient will return to the senior living with physical therapy. 2. Patient presented with a closed right intertrochanteric fracture. This was after a fall. Patient has had multiple falls. Patient with prior history of left hip surgery in December. Since that time her mobility has been compromise. Patient was seen and evaluated by orthopedics. Surgical intervention was required. Intra medullary rodding was done. Patient tolerated procedure well. Patient try to work with physical therapy. Plan of care discussed with daughter. Daughter understands that the patient may not return back to her baseline as she had been in compromise in her mobility even prior to surgery. At discharge patient will return back to the senior living. Patient may continue with physical therapy there. Pain medication-tramadol 50 mg 3 times a day as needed for pain will be provided, dispensed 20 pills. Patient will also continue with Lovenox 40 mg subcu daily for the next 25 days for DVT prophylaxis status post hip repair. Advanced directives address in detail with the daughter. Patient is do not resuscitate. Patient will follow up with orthopedics in 3 weeks. Repeat x-rays will be done at that time. Fall precautions in place. Patient with left comminuted fracture to the left 1st metacarpal. Cast in place. Patient will follow up with orthopedics in 3 weeks. Repeat x-rays will be done at that time. 3. Patient with chronic atrial fibrillation. Patient not on prior chronic anti coagulation therapy due to risk of fall and bleeding. At discharge patient will continue with her medication including Rythmol 225 mg 3 times a day. Due to recent surgery patient will continue with Lovenox 40 mg subcu daily for at least 25 days. No need for further chronic anti coagulation therapy in the future due to risk of fall and bleeding. 4. Patient with underlying chronic dementia Alzheimer's type. Patient will continue with her current medications- Galantamine 24 mg daily, Depakote 125 mg 4 pills twice daily, Remeron 30 mg at bedtime and trazodone 150 mg at bedtime. Advanced directives address in detail with daughter. Patient is do not resuscitate. Due to her chronic Alzheimer's her condition for improvement may worsen. If this continues worsen will need to consider hospice. Information to daughter provided. Daughter understands this and plan of care. This can be further addressed at the senior living. 5. Patient with postoperative anemia. This has remained stable. Patient may continue with multi vitamin with iron daily. Recommend to recheck CBC in 1 week. Diet: Regular Activity: Fall precautions Time spent managing pt's care (in minutes): 55
[2019-05-25 10:03] VITALS: O2SAT 94
== END 2019-05-25 11:46 | DRG 481 ==
LOC: ER 01:14 → ERHOLD 07:09 → 4TH 07:58 → 3RD-ICU 18:07 → 2ND 05-23 09:00
PROVIDERS: ADMIT Internal Medicine; ATTEND Internal Medicine
PROC: 0QS606Z Reposition Right Upper Femur with Intramedullary Internal Fixation Device, Open Approach (ICD-10-PCS; principal; 2019-05-22 16:30)
DX: S72.141A Displaced intertrochanteric fracture of right femur, initial encounter for closed fracture (principal); I48.20 Chronic atrial fibrillation, unspecified; E44.1 Mild protein-calorie malnutrition; Z68.1 Body mass index [BMI] 19.9 or less, adult; S62.202A Unspecified fracture of first metacarpal bone, left hand, initial encounter for closed fracture; W18.30XA Fall on same level, unspecified, initial encounter; Y92.199 Unspecified place in other specified residential institution as the place of occurrence of the external cause; G30.0 Alzheimer's disease with early onset; F02.80 Dementia in other diseases classified elsewhere, unspecified severity, without behavioral disturbance, psychotic disturbance, mood disturbance, and anxiety; D64.9 Anemia, unspecified
CPT/HCPCS: 36415; 70450; 71045; 72125; 72170; 73530; 73700; 80048; 80076; 81001; 83735; 83880; 84100; 84443; 84484; 85025; 85610; 87086; 87088; 93005; 94760; 96374; 96375; 97110; 97112; 97161; 97530; 99284; 99285; J0360; J0690; J0696; J1650; J2175; J2250; J2270; J2405; J3010; J7030; J7120

== ENCOUNTER 2020-12-05 15:08 | Emergency (ER) | payer OTHER ==
--- OUTSIDE RECORDS SUMMARY | 2020-12-05 15:12 | XMS REPORT | Continuity of Care Document ---
:1940 Author Organization [facility] t Address [address] [place] [address] Care Team Providers Name Role Phone Estiven SMART Braedenanatoliy Parson Attending Clinician Doctor Unassigned, Name Attending Clinician Unavailable Erlinda TATE L Attending Clinician Neo Richards Attending Clinician Problems Condition Condition Condition Status Onset Resolution Last Treating Co mments Source Name Details Category Date Date Treatment Clinician Date Amnesia Problem Active 2019-03-02 Matt kathya (finding) 22:21:14 l Amnesia Viking (finding) Active Problem 03/02/2019 [facility] Atrial Problem Active 2019-03-02 Memor ia fibrillati 22:21:14 l on Atrial Viking (disorder) fibrillati on (disorder) Active Problem 03/02/2019 [facility] Dementia Problem Active 2019-03-02 Mem oria (disorder) 22:21:14 l Dementia Domenico n (disorder) Active Problem 03/02/2019 [facility] Depressive Problem Active 2019-03-02 M emoria disorder 22:21:14 l (disorder) Domenico n Depressive disorder (disorder) Active Problem 03/02/2019 [facility] Alzheimer' Problem Active 2019-03-02 M emoria s disease 22:21:14 l (disorder) Domenico n Alzheimer' s disease (disorder) Active Problem 03/02/2019 [facility] Allergies, Adverse Reactions, Alerts This patient has no known allergies or adverse reactions. Social History Social Habit Start Date Stop Date Quantity Comments Source Social History 2018-03-08 2018-03-08 [facility] ermann 16:26:02 16:26:02 Medications Ordered Filled Start Stop Current Ordering Indication Dosage Frequency Signature Comments Components Source Medication Medication Date Date Medication? Clinician (SIG) Name Name Yobaniph Yes 650 mg = 2 Memoria en 325 MG 8 cap, PO, l Oral 14:34: PRN, 0 [facility] Capsule 00 Refill(s) [Tylenol] 24 HR Yes 250 mg = 1 Memori a Divalproex 8- tab, PO, l Sodium 250 14:34: Daily, 0 Her wang MG Extended 00 Refill(s) Release Tablet [Depakote] Guiatuss Yes 100 mg, Memori a 10-27 PO, PRN, 0 l 14:34: Refill(s) Jorge 00 Galantamine 2017-03 No 8 mg = 1 Me moria 8 MG Oral 0-30 tab, PO, l Tablet 15:18: Bedtime, # Doris nn [Razadyne] 00 30 tab, 3 Refill(s), Pharmacy: [id number] Sertraline 2017-03 Yes 25 mg = 1 Me moria 25 MG Oral 0-30 tab, PO, l Tablet 15:18: Daily, # Jorge [Zoloft] 00 30 tab, 3 Refill(s), Pharmacy: [id number] Vital Signs Vital Name Observation Time Observation Value Comments Source BMI Calculated 2018-10-27 14:27:00 Memori al [facility] Weight 2018-10-27 14:27:00 [facility] Height 2018-10-27 14:27:00 154.94 cm [facility] Respitory Rate 2018-10-27 14:27:00 Memori al Jorge Heart Rate 2018-10-27 14:27:00 [facility] Systolic (mm Hg) 2018-10-27 14:27:00 Mattsamantha Patel Diastolic (mm Hg) 2018-10-27 14:27:00 [facility] Height 2018-03-08 15:49:00 149.86 cm [facility] BMI Calculated 2018-03-08 15:49:00 Memori al [facility] Weight 2018-03-08 15:49:00 [facility] Heart Rate 2018-03-08 15:49:00 [facility] Respitory Rate 2018-03-08 15:49:00 Memori al [facility] Systolic (mm Hg) 2018-03-08 15:49:00 Matt rial [facility] Diastolic (mm Hg) 2018-03-08 15:49:00 Mem orial Jorge Height 2018-01-25 14:43:00 160.02 cm Andreas Patel Weight 2018-01-25 14:43:00 Andreas Patel BMI Calculated 2018-01-25 14:43:00 Memori al [facility] Heart Rate 2018-01-25 14:43:00 [facility] Systolic (mm Hg) 2018-01-25 14:43:00 Matt rial [facility] Diastolic (mm Hg) 2018-01-25 14:43:00 Mem orial Jorge Procedures This patient has no known procedures. Encounters Start End Encounter Admission Attending Care Care Encounter Source Date/Time Date/Time Type Type Clinicians Facility Department ID 2020-04-20 2020-04-20 Patient EULOGIO Jean-Baptiste [id number] 00:00:00 00:00:00 Outreach [facility] [id number] [facility] [id number] [place] [id number] 2019-06-20 2019-06-20 Orders Doctor YEAGER [id number] 00:00:00 00:00:00 Only Unassigned, KINDRA [id number] [place] [facility] [id number] 2019-06-15 2019-06-15 Telephone Erlinda [facility] [id number] 00:00:00 00:00:00 [facility] [id number] Surgical [id number] Specialti [id number] [address] [place] 2019-06-15 2019-06-15 Telephone Erlinda [facility] [id number] 00:00:00 00:00:00 Emanuel [facility] [id number] Surgical [id number] Specialti [id number] [address] [place] 2019-06-15 2019-06-15 Orders Doctor YEAGER [id number] 00:00:00 00:00:00 Only Unassigned, KINDRA [id number] [place] [facility] [id number] [id number] 2019-06-12 2019-06-12 Orders Doctor SHOBHA [id number] 00:00:00 00:00:00 Only Unassigned, KINDRA [id number] [place] [facility] .[id number] [id number] 2019-05-29 2019-05-29 Garwin Erlinda [facility] [id number] 00:00:00 00:00:00 Emanuel Hernandez [facility] [id number] Surgical [id number] Special [id number] [address] [place] 2019-05-24 2019-05-24 Orders Doctor SHOBHA [id number] 00:00:00 00:00:00 Only Unassigned, IKNDRA [id number] [place] [id number] 2019-05-22 2019-05-22 [facility] Erlinda [facility] 1.2.840.114 [id number] 15:28:05 23:59:00 Encounter Emanuel Hernandez [facility] [id number] [place] [id number] 2019-02-28 2019-02-28 Ambulatory nullFlavo MNA [id number] Memoria 15:00:00 15:00:00 Pre-Reg r Neurology 06 l Sonny Patel 2019-02-28 2019-02-28 Outpatient MHIE ERNIE [id number] 365 [facility] 09:00:00 09:00:00 06 anny Patel 2019-02-28 2019-02-28 Outpatient MACIE RichardsMISCHTANI [id number] 09:00:00 09:00:00 Kenton Larson 2019-01-13 2019-01-13 Orders Doctor YEAGER [id number] 00:00:00 00:00:00 Only Unassigned, KINDRA [id number] [place] [facility] .2.7.2.686 [id number] 2018-10-27 2018-10-28 Outpatient nullFlavo MNA [id number] Memoria 14:30:00 04:59:59 r Neurology 05 l Sonny Patel 2018-10-27 2018-10-27 Outpatient Susie MHMISCHER MHMISCHER [id number] 09:30:00 23:59:59 Kenton Shelton Larson 2018-10-27 2018-10-27 Outpatient MHIE MHIE [id number] [facility] 09:30:00 09:30:00 05 anny Patel 2018-06-30 2018-06-30 Outpatient MHIE MHIE [id number] [facility] 09:30:00 09:30:00 04 anny Patel 2018-04-07 2018-04-09 Outside nullFlavo MNA [id number] Memoria 21:18:00 05:59:59 Medical r Neurology 05 l Mojgan Patel 2018-04-07 2018-04-08 Outpatient MHMISCHER MHMISCHER [id number] 15:18:00 23:59:59 05 2018-04-01 2018-04-03 Phone nullFlavo MNA [id number] Memoria 20:32:00 05:59:59 Message r Neurology 04 l Sonny Patel 2018-04-01 2018-04-02 Outpatient MHMISCHER MHMISCHER [id number] 14:32:00 23:59:59 04 2018-03-30 2018-04-01 Phone nullFlavo MNA [id number] Memoria 17:06:00 05:59:59 Message r Neurology 03 l Sonny Jorge 2018-03-30 2018-03-31 Outpatient MHMISCHER MHMISCHER [id number] 11:06:00 23:59:59 03 2018-03-08 2018-03-09 Outpatient nullFlavo MNA [id number] Memoria 16:00:00 05:59:59 r Neurology 03 anny Dennis Jorge 2018-03-08 2018-03-08 Outpatient Susie MHMISCHER MHMISCHER [id number] 10:00:00 23:59:59 Kenton Hamilton Larson 2018-03-08 2018-03-08 Outpatient MHIE MHIE [id number] Memoria 10:00:00 10:00:00 Hamilton Dotsonann 2018-01-27 2018-01-29 Phone nullFlavo MNA [id number] Memoria 19:44:00 04:59:59 Message r Neurology 02 anny [place] Jorge 2018-01-27 2018-01-28 Outpatient MHMISCHER MHMISCHER [id number] 14:44:00 23:59:59 02 2018-01-25 2018-01-26 Outpatient nullFlavo MNA [id number] Memoria 14:45:00 04:59:59 r Neurology 02 anny Sonny Patel 2018-01-25 2018-01-25 [facility] [id number] 09:45:00 23:59:59 Kenton Larson 2018-01-25 2018-01-25 Outpatient MHIE MHIE [id number] Memoria 09:45:00 09:45:00 02 anny Patel 2017-12-14 2017-12-14 Outpatient MHIE MHIE [id number] [facility]oria 11:45:00 11:45:00 01 anny Patel 2017-11-23 2017-11-23 Outpatient MHIE MHIE [id number] Memoria 09:45:00 09:45:00 00 anny Patel Results This patient has no known results.
--- NOTE | 2020-12-05 16:42 | RAD REPORT ---
EXAM DESCRIPTION: RAD - Chest Single View - 12/05/2020 4:23 pm CLINICAL HISTORY: weakness COMPARISON: Chest Single View dated 05/22/2019; Chest Single View dated 01/13/2019; Chest Single View dated 03/27/2018; Chest Single View dated 03/19/2018 FINDINGS: Lines: None. Lungs: No evidence of edema or pneumonia. Pleural: No significant pleural effusions or pneumothorax. Cardiac: The heart size is within normal limits. Bones: No acute fractures. Other: IMPRESSION: No acute cardiopulmonary disease.
--- NOTE | 2020-12-05 17:36 | RAD REPORT ---
EXAM DESCRIPTION: CT - Head Brain Wo Cont - 12/05/2020 5:29 pm CLINICAL HISTORY: WEAKNESS COMPARISON: Head Brain Wo Cont dated 03/19/2018; Head Brain Wo Cont dated 02/28/2017 TECHNIQUE: All CT scans are performed using dose optimization technique as appropriate and may inclu de automated exposure control or mA/KV adjustment according to patient size. FINDINGS: Moderate chronic small vessel ischemic changes and age advanced cerebral atrophy. Atrophy has progressed since 03/19/2018.No areas of brain edema or evidence of midline shift. The paranasal sinuses and mastoids are clear. The calvarium is intact. IMPRESSION: No acute intracranial abnormality.
[2020-12-05 18:43] LABS: Urine Blood Negative (Negative); Urine Glucose Trace (Negative); Urine Protein Negative (Negative); Urine Specific Gravity 1.025 (1.005-1.030); Urine pH 5.5 (5.0-7.0)
[2020-12-05 18:57] LABS: Barbiturates NEGATIVE (NEGATIVE); Benzodiazepines NEGATIVE (NEGATIVE); Cocaine NEGATIVE (NEGATIVE); METHAMPHETAM NEGATIVE (NEGATIVE); Methadone NEGATIVE (NEGATIVE); Opiates NEGATIVE (NEGATIVE); Phencyclidine NEGATIVE (NEGATIVE); THC Cannibis NEGATIVE (NEGATIVE)
[2020-12-05 20:58] LABS: Absolute Lymphocytes (CBC) 1.6 K/uL (0.7-4.9); Basophils % 0.6 % (0-1.3); Hematocrit 26.5 % (36.0-45.0); MPV 7.5 fL (7.6-11.3); RBC Red Blood Cell Count 2.82 M/uL (3.86-4.86)
[2020-12-05 20:59] LABS: Protime INR 1.29
[2020-12-05 21:16] LABS: ALT/SGPT 17 U/L (12-78); AST/SGOT 24 U/L (15-37); Albumin 1.5 g/dL (3.4-5.0); Alkaline Phosphatase 93 U/L (45-117); BUN Blood Urea Nitrogen 19 mg/dL (7-18); Bicarbonate 29 mmol/L (21-32); Bilirubin Direct 0.2 mg/dL (0-0.2); Bilirubin Total 0.4 mg/dL (0.2-1.0); Glucose Level 82 mg/dL (74-106); Magnesium 2.5 mg/dL (1.8-2.4); NT PRO-BNP 952 pg/mL (<450); Potassium 3.7 mmol/L (3.5-5.1); Protein, Total 7.5 g/dL (6.4-8.2); Sodium Level 146 mmol/L (136-145); Troponin (Emerg Dept Use Only) < 0.02 ng/mL (0.0-0.045)
--- NOTE | 2020-12-05 22:51 | ER ---
Nurse's Notes [facility] Name: Lila Jenkins Age: 80 yrs Sex: Female : 1940 Arrival Date: 12/05/2020 Time: 15:11 Bed 28 Private MD: Diagnosis: Person with feared health complaint in whom no diagnosis is made Presentation: 12/05 15:11 Chief complaint: EMS states: they were called out to [place] for a resident with ap3 hypotension and hypothermia. upon arrival EMS states patients temperature was 98.7, and blood pressure was 120/54. Coronavirus screen: Client denies travel out of the [place] in the last 14 days. At this time, the client does not indicate any symptoms associated with coronavirus-19. Ebola Screen: No symptoms or risks identified at this time. Initial Sepsis Screen: Does the patient meet any 2 criteria? No. Patient's initial sepsis screen is negative. Risk Assessment: Do you want to hurt yourself or someone else? Patient reports no desire to harm self or others. Onset of symptoms was December 05, 2020. 15:11 Method Of Arrival: EMS: [facility] ap3 15:11 Acuity: MAREN 3 ap3 Triage Assessment: 16:00 General: Appears in no apparent distress. slender, Behavior is calm, quiet. Pain: Noted kh1 to be. Historical: - Home Meds: 15:42 Depakote 125 mg Oral TbEC 3 tabs 2 times per day [Active]; galantamine 12 mg Oral tab 1 ap3 tab 2 times per day [Active]; trazodone 150 mg Oral tab 1 tab nightly [Active]; acetaminophen 500 mg oral tab [Active]; propafenone 225 mg Oral tab 1 tab every 8 hours [Active]; Mirtazapine Oral [Active]; omeprazole Oral [Active]; sertraline oral [Active]; Tramadol Oral [Active]; Lety-Lanta oral [Active]; - Immunization history:: Adult Immunizations up to date, Client reports receiving the 2nd dose of the Covid vaccine. - Social history:: Smoking status: unknown. Screenin:47 Abuse screen: Denies threats or abuse. Nutritional screening: No deficits noted. ap3 Tuberculosis screening: No symptoms or risk factors identified. Fall Risk Fall in past 12 months (25 points). Secondary diagnosis (15 points) impaired mobility, IV access (20 points). Ambulatory Aid- None/Bed Rest/Nurse Assist (0 pts). Gait- Impaired (20 pts.). Mental Status- Overestimates/Forgets Limitations (15 pts.). Total [place] Fall Scale indicates High Risk Score (45 or more points). Fall prevention measures have been instituted. Side Rails Up X 2 Placed Close to Nursing Station Frequent Obs/Assessments Occuring As available patient and family educated on Fall Prevention Program and Strategies. Assessment: 16:00 General: Appears in no apparent distress. Neuro: Level of Consciousness is awake, kh1 alert. Cardiovascular: Reports Denies Rhythm is sinus bradycardia. Respiratory: Airway is patent. GI: Abdomen is flat. Vital Signs: 15:11 BP 118 / 50; Pulse 69; Resp 17; Temp 98.7; Pulse Ox 94% on R/A; ap3 15:46 BP 114 / 53; Pulse 62; Resp 17; Pulse Ox 100% on R/A; ap3 16:00 BP 116 / 50; Pulse 51; Resp 20; Pulse Ox 100% on R/A; kh1 18:00 BP 127 / 63; Pulse 56; Resp 18; Pulse Ox 100% on R/A; kh1 23:51 BP 118 / 62; Pulse 82; Resp 18; Temp 98; Pulse Ox 99% ; wr ED Course: 15:11 Patient arrived in ED. ap3 15:16 Triage completed. ap3 15:47 Arm band placed on left wrist. ap3 15:47 Patient has correct armband on for positive identification. Call light in reach. Side ap3 rails up X2. Pulse ox on. NIBP on. Door closed. Noise minimized. 15:59 Junior Shin PA is PHCP. [facility] 15:59 Sterling Petty MD is Attending Physician. [facility] 16:23 XRAY Chest (1 view) In Process Unspecified. EDMS 17:29 CT Head Brain wo Cont In Process Unspecified. EDMS 18:50 Lakisha Joseph is Primary Nurse. kh1 18:53 Urine Culture Sent. kh1 18:53 Urine Culture Sent. kh1 22:51 Basic Metabolic Panel Sent. bb 22:51 CBC with Diff Sent. bb Administered Medications: No medications were administered Outcome: 22:51 Discharge ordered by MD. banuelos 23:56 Patient left the ED. wr Signatures: Dispatcher [employer] EDMS Junior Shin PA PA jmm Ballard, Brenda, RN RN Jessica Nelson RN RN Lakisha Zapata Willena Corrections: (The following items were deleted from the chart) 15:46 15:42 Home Meds: Remeron 30 mg Oral tab 1 tab once daily; ap3 ap3 15:46 15:42 PMHx: Atrial Fib; ap3 ap3 15:46 15:42 PMHx: UTI; ap3 ap3 15:46 15:42 PMHx: Bronchitis; ap3 ap3 15:46 15:42 PMHx: upper GI bleed; ap3 ap3 15:46 15:42 PMHx: GERD; ap3 ap3 15:46 15:42 PMHx: Alzheimers; ap3 ap3 15:46 15:42 PMHx: Depression; ap3 ap3 15:46 15:42 PMHx: Hypertension; ap3 ap3 15:46 15:42 PMHx: DYSPHAGIA; ap3 ap3
--- NOTE | 2020-12-05 22:52 | EDPHYS ---
Physician Documentation [facility] Name: Lila Jenkins Age: 80 yrs Sex: Female : 1940 Arrival Date: 12/05/2020 Time: 15:11 Bed 28 Private MD: ED Physician Sterling Petty HPI: 12/05 16:12 This 80 yrs old Female presents to ER via EMS with complaints of lethargic. [facility] 16:12 According to [facility], the patient is more lethargic than normal. States [facility] the patient is at her baseline alertness. Called EMS due to abnormal blood pressure and temperature readings.. Historical: - Home Meds: 15:42 Depakote 125 mg Oral TbEC 3 tabs 2 times per day [Active]; galantamine 12 mg Oral tab 1 ap3 tab 2 times per day [Active]; trazodone 150 mg Oral tab 1 tab nightly [Active]; acetaminophen 500 mg oral tab [Active]; propafenone 225 mg Oral tab 1 tab every 8 hours [Active]; Mirtazapine Oral [Active]; omeprazole Oral [Active]; sertraline oral [Active]; Tramadol Oral [Active]; Lety-Lanta oral [Active]; - Immunization history:: Adult Immunizations up to date, Client reports receiving the 2nd dose of the Covid vaccine. - Social history:: Smoking status: unknown. ROS: 16:12 Unable to obtain ROS due to baseline dementia. [facility] Exam: 16:12 Head/Face: atraumatic. Eyes: EOMI, no conjunctival erythema appreciated ENT: Moist [facility] Mucus Membranes Neck: Trachea midline, Supple Chest/axilla: Normal chest wall appearance and motion. Cardiovascular: Regular rate and rhythm. No edema appreciated Respiratory: Normal respirations, no respiratory distress appreciated Abdomen/GI: Non distended, soft Back: Normal ROM Skin: General appearance color normal 16:12 Constitutional: The patient appears in no acute distress. 16:12 Musculoskeletal/extremity: ROM: intact in all extremities. 16:12 Skin: Appearance: Moisture: dry. 16:12 Neuro: Vital Signs: 15:11 BP 118 / 50; Pulse 69; Resp 17; Temp 98.7; Pulse Ox 94% on R/A; ap3 15:46 BP 114 / 53; Pulse 62; Resp 17; Pulse Ox 100% on R/A; ap3 16:00 BP 116 / 50; Pulse 51; Resp 20; Pulse Ox 100% on R/A; kh1 18:00 BP 127 / 63; Pulse 56; Resp 18; Pulse Ox 100% on R/A; kh1 23:51 BP 118 / 62; Pulse 82; Resp 18; Temp 98; Pulse Ox 99% ; wr MDM: 16:04 Patient medically screened. [facility] 22:49 ED course: Patient's labs unremarkable except for hemoglobin level lower than the [facility] previous visit. Not at transfusion for levels. Guaiac was performed which did not reveal dark tarry stools or a positive guaiac. Patient appears to be in the same mentation that is normal for her according to halfway and daughter. Imaging studies unremarkable. Urine does not show signs of infection.. 22:51 Data reviewed: vital signs, nurses notes, lab test result(s), radiologic studies. [facility] 12/05 16:06 Order name: Basic Metabolic Panel [facility] 12/05 16:06 Order name: CBC with Diff [facility] 12/05 16:06 Order name: LFT's; Complete Time: 21:35 [facility] 12/05 16:06 Order name: Magnesium; Complete Time: 21:35 [facility] 12/05 16:06 Order name: NT PRO-BNP; Complete Time: 21:35 [facility] 12/05 16:06 Order name: PT-INR; Complete Time: 21:04 [facility] 12/05 16:06 Order name: Troponin (emerg Dept Use Only); Complete Time: 21:35 [facility] 12/05 16:06 Order name: Procalcitonin; Complete Time: 17:52 [facility] 12/05 16:06 Order name: Lactate; Complete Time: 17:22 [facility] 12/05 16:06 Order name: Blood Culture Adult (2) [facility] 12/05 16:06 Order name: Urine Drug Screen; Complete Time: 18:58 [facility] 12/05 16:06 Order name: Basic Metabolic Panel; Complete Time: 21:35 [facility] 12/05 16:06 Order name: CBC with Automated Diff; Complete Time: 21:04 [facility] 12/05 16:06 Order name: XRAY Chest (1 view); Complete Time: 16:54 [facility] 12/05 16:06 Order name: Cardiac monitoring; Complete Time: 21:43 [facility] 12/05 16:06 Order name: IV Saline Lock; Complete Time: 21:43 [facility] 12/05 16:06 Order name: Labs collected and sent; Complete Time: 21:43 [facility] 12/05 16:06 Order name: O2 Per Protocol; Complete Time: 17:57 [facility] 12/05 16:06 Order name: O2 Sat Monitoring; Complete Time: 17:57 [facility] 12/05 16:06 Order name: CT Head Brain wo Cont; Complete Time: 17:52 [facility] 12/05 17:22 Order name: Labs - recollect needed: blue, purple and green top please; Complete Time: em1 21:43 12/05 17:36 Order name: Urine Culture [facility] 12/05 18:42 Order name: Urine Dipstick-Ancillary; Complete Time: 18:51 EDMS 12/05 19:18 Order name: SARS-COV-2 RT PCR; Complete Time: 19:25 EDMS Administered Medications: No medications were administered Disposition: 12/06 04:47 Co-signature as Attending Physician, Sterling Petty MD I agree with the assessment and kdr plan of care. Disposition Summary: 12/05/20 22:51 Discharge Ordered Location: Home [facility] Condition: Stable [facility] Diagnosis - Person with feared health complaint in whom no diagnosis is made [facility] Followup: [facility] - With: Private Physician - When: 2 - 3 days - Reason: Recheck today's complaints, Continuance of care, Re-evaluation by your physician Discharge Instructions: - Discharge Summary Sheet [facility] - Rehydration, Elderly [facility] Forms: - Medication Reconciliation Form [facility] - Thank You Letter [facility] - Antibiotic Education [facility] - Prescription Opioid Use [facility] Signatures: Dispatcher [employer] EDStelring Haywood MD MD kdr Mickail, Joel, PA PA jm Jayy Browne em1 Jessica Claudio RN RN ap3 Corrections: (The following items were deleted from the chart) 12/05 15:46 15:42 Home Meds: Remeron 30 mg Oral tab 1 tab once daily; ap3 ap3 15:46 15:42 PMHx: Atrial Fib; ap3 ap3 15:46 15:42 PMHx: UTI; ap3 ap3 15:46 15:42 PMHx: Bronchitis; ap3 ap3 15:46 15:42 PMHx: upper GI bleed; ap3 ap3 15:46 15:42 PMHx: GERD; ap3 ap3 15:46 15:42 PMHx: Alzheimers; ap3 ap3 15:46 15:42 PMHx: Depression; ap3 ap3 15:46 15:42 PMHx: Hypertension; ap3 ap3 15:46 15:42 PMHx: DYSPHAGIA; ap3 ap3 18:11 16:06 CORONAVIRUS+MR.LAB.BRZ ordered. EDMS EDMS :50 22:14 Data reviewed: vital signs, nurses notes, vin banuelos 50 22:14 Counseling: I had a detailed discussion with the patient and/or guardian vin regarding: the historical points, exam findings, and any diagnostic results supporting the discharge/admit diagnosis, vin
[2020-12-06 00:44] VITALS: BP 118/62; TEMP 98; O2SAT 99
== END 2020-12-05 23:56 | disposition home or self-care (01) ==
LOC: ER 15:08
DX: Z71.1 Person with feared health complaint in whom no diagnosis is made (principal); Z20.822 Contact with and (suspected) exposure to COVID-19
CPT/HCPCS: 87040 ×2; 85025; 80048; 36415; 83735; 87205; 85610; 80076; 83605; 81003; 84484; 84145; 83880; 80307; 70450; 71045; 99284; U0003

== ENCOUNTER 2021-05-08 19:47 | Inpatient (IN) | payer OTHER ==
--- OUTSIDE RECORDS SUMMARY | 2021-05-08 19:50 | XMS REPORT | Continuity of Care Document ---
:1940 Author Organization [facility] t Address [address] [place] [address] Care Team Providers Name Role Phone PCP, PATIENT DOES NOT HAVE A Primary Care Physician Unavaila Eb Tariq DO Attending Clinician Doctor Unassigned, Name Attending Clinician Unavailable Anny Salinas MD Attending Clinician Anny SALINAS Attending Clinician Unavailable Anny SALINAS Admitting Clinician Unavailable Payers Payer Name Policy Type Policy Number Effective Date Expiration Date S ource Problems Condition Condition Condition Status Onset Resolution Last Treating Co mments Source Name Details Category Date Date Treatment Clinician Date Borderline Borderline Disease Active 2016-03 U nivers abnormal abnormal 0-24 ity of thyroid thyroid 00:00: [place] function function 00 Medica l test test Branch Senile Senile Disease Active 2016-03 Univers osteoporos osteoporos 0-24 it y of is is 00:00: [place] 00 Medical Branch 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 Uni vers current current 7-12 ity of use of use of 00:00: [place] systemic systemic 00 Medica l steroids steroids Branch PMR PMR Disease Active Overview: Namita cope (polymyalg (polymyalg 3-29 Diagnosed ity of ia ia 00:00: 04/2016: [place] rheumatica rheumatica 00 ESR 48, M edical ) ) CRP 2.6, Branch B/L hip pain Left knee Left knee Disease Active Uni vers pain, pain, 3-29 ity of unspecif[place] Medical chronicity chronicity Br anch Pain of Pain of Disease Active Univers both hip both hip 05-27 ity of joints joints 00:00: [place] 00 Medical Branch Midline Midline Disease Active Univers low back low back 3 ity of pain, pain, 00:00: [place] unspecifie unspecifie 00 Me dical d d Branch chronicity chronicity , with , with sciatica sciatica presence presence unspecifie unspecifie d d Elevated Elevated Disease Active Unive rs C-reactive C-reactive 3 it y of protein protein 00:00: [place] (CRP) (CRP) 00 Medical Branch Osteoporos Osteoporos Disease Active U nivers is is 2-06 ity of 00:00: [place] 00 Medical Branch Vitamin D Vitamin D Disease Active Uni vers deficiency deficiency 2-06 it y of 00:00: [place] 00 Medical Branch Amnesia Problem Active 2019-03-02 Matt kathya (finding) 22:21:14 l Amnesia Jorge (finding) Active Problem 03/02/2019 [facility] Atrial Problem Active 2019-03-02 Memor ia fibrillati 22:21:14 l on Atrial Wright (disorder) fibrillati on (disorder) Active Problem 03/02/2019 [...] 03/02/2019 [facility] Allergies, Adverse Reactions, Alerts Allergy Allergy Status Severity Reaction(s) Onset Inactive Treating Comm ents Source Name Type Date Date Clinician NO KNOWN Drug Active Univers ALLERGIE Class ity of [facility] Social History Social Habit Start Date Stop Date Quantity Comments Source Sex Assigned At Universit y of [facility] Social History 2018-03-08 2018-03-08 [place] nation 16:26:02 16:26:02 Alcohol intake 2017-01-19 2017-01-19 Current University of 00:00:00 00:00:00 non-drinker of [facility] alcohol Branch (finding) Smoking Status Start Date Stop Date Source Never smoker [facility] Medications Ordered Filled Start Stop Current Ordering Indication Dosage Frequency Signature Comments Components Source Medication Medication Date Date Medication? Clinician (SIG) Name Name Acetaminoph Yes 650 mg = 2 Memoria en 325 MG 10-27 cap, PO, l Oral 14:34: PRN, 0 Wright Capsule 00 Refill(s) [Tylenol] 24 HR 2018- Yes 250 mg = 1 Memori a Divalproex 10-27 tab, PO, l Sodium 250 14:34: Daily, 0 Her wang MG Extended 00 Refill(s) Release Tablet [Depakote] Guiatuss Yes 100 mg, Memori a 10-27 PO, PRN, 0 l 14:34: Refill(s) Wright 00 MULTIVIT-VT Yes Take by Un sheila N/IRON/FOLI 2-26 mouth. ity of C/LUTEIN 16:13: [place] ([address] WOMEN ORAL) CALCIUM Yes Take by Univer s ORAL 2-26 mouth. ity of 16:13: [address] NAPROXEN 2018- Yes Take by Unive rs SODIUM 2-26 mouth. ity of (ALEVE 16:13: [place] ORAL) [address] [place] [address] MULTIVIT-VT 2018- Yes Take by Un sheila N/IRON/FOLI 2-26 mouth. ity of C/LUTEIN 16:13: [place] ([address] WOMEN ORAL) CALCIUM 2018- Yes Take by Univer s ORAL 2-26 mouth. ity of 16:13: [address] NAPROXEN 2019- Yes Take by Unive rs SODIUM 2-26 mouth. ity of (ALEVE 16:13: [place] ORAL) [address] [place] [address] MULTIVIT-VT 2018- Yes Take by Un sheila N/IRON/FOLI 2-26 mouth. ity of C/LUTEIN 16:13: [place] ([address] WOMEN ORAL) CALCIUM 2018-0 Yes Take by Univer s ORAL 2-26 mouth. ity of 16:13: [address] NAPROXEN 2018- Yes Take by Unive rs SODIUM 2-26 mouth. ity of (ALEVE 16:13: [place] ORAL) [address] [place] [address] 2018-0 Yes Take by Un sheila N/IRON/FOLI 2-26 mouth. ity of C/LUTEIN 16:13: [place] ([address] WOMEN ORAL) CALCIUM 2019-0 Yes Take by Univer s ORAL 2-26 mouth. ity of 16:13: [address] NAPROXEN 2019-0 Yes Take by Unive rs SODIUM 2-26 mouth. ity of (ALEVE 16:13: [place] ORAL) [address] [place] [place] [address] 2018-0 Yes Take by Un sheila N/IRON/FOLI 2-26 mouth. ity of C/LUTEIN 16:13: [place] ([address] WOMEN ORAL) CALCIUM 2019-0 Yes Take by Univer s ORAL 2-26 mouth. ity of 16:13: [address] NAPROXEN 2019-0 Yes Take by Unive rs SODIUM 2-26 mouth. ity of (ALEVE 16:13: [facility]) [address] [place] [address] 2018-0 Yes Take by Un sheila N/IRON/FOLI 2-26 mouth. ity of C/LUTEIN 16:13: [place] ([address] WOMEN ORAL) CALCIUM 2018-0 Yes Take by Univer s ORAL 2-26 mouth. ity of 16:13: [address] NAPROXEN 2019-0 Yes Take by Unive rs SODIUM 2-26 mouth. ity of (ALEVE 16:13: [place] ORAL) [address] [place] [address] 2018-0 Yes Take by Un sheila N/IRON/FOLI 2-26 mouth. ity of C/LUTEIN 16:13: [place] ([address] WOMEN ORAL) CALCIUM 2019-0 Yes Take by Univer s ORAL 2-26 mouth. ity of 16:13: [address] NAPROXEN 2019-0 Yes Take by Unive rs SODIUM 2-26 mouth. ity of (ALEVE 16:13: [place] ORAL) [address] [place] [address] 2018-0 Yes Take by Un sheila N/IRON/FOLI 2-26 mouth. ity of C/LUTEIN 16:13: [place] ([address] WOMEN ORAL) CALCIUM 2019-0 Yes Take by Univer s ORAL 2-26 mouth. ity of 16:13: [address] NAPROXEN 2019-0 Yes Take by Unive rs SODIUM 2-26 mouth. ity of (ALEVE 16:13: [place] ORAL) [address] [place] [address] MULTIVIT-VT Yes Take by Un sheila N/IRON/FOLI 2-26 mouth. ity of C/LUTEIN 16:13: [place] ([address] WOMEN ORAL) CALCIUM Yes Take by Univer s ORAL 2-26 mouth. ity of 16:13: [address] NAPROXEN Yes Take by Unive rs SODIUM 2-26 mouth. ity of (ALEVE 16:13: [place] ORAL) [address] [place] [address] MULTIVIT-VT Yes Take by Un sheila N/IRON/FOLI 2-26 mouth. ity of C/LUTEIN 16:13: [place] ([address] WOMEN ORAL) CALCIUM Yes Take by Univer s ORAL 2-26 mouth. ity of 16:13: [address] NAPROXEN Yes Take by Unive rs SODIUM 2-26 mouth. ity of (ALEVE 16:13: [place] ORAL) [address] [place] [address] Galantamine 2017-03 No 8 mg = 1 Me moria 8 MG Oral 0-30 tab, PO, l Tablet 15:18: Bedtime, # Doris nn [Razadyne] 00 30 tab, 3 Refill(s), Pharmacy: [facility] [id number] Sertraline 2017-03 Yes 25 mg = 1 Me moria 25 MG Oral 0-30 tab, PO, l Tablet 15:18: Daily, # Jorge [Zoloft] 00 30 tab, 3 Refill(s), Pharmacy: [facility] [id number] propafenone 2017- Yes 1.5{tbl Take 1.5 Univers 150 mg 1-11 } tablets by ity of tablet 00:00: mouth 3 (three) Medical times Branch daily. propafenone 2016- Yes 1.5{tbl Take 1.5 Univers 150 mg 1-11 } tablets by ity of tablet 00:00: mouth 3 (three) Medical times Branch daily. propafenone 2016- Yes 1.5{tbl Take 1.5 Univers 150 mg 1-11 } tablets by ity of tablet 00:00: mouth 3 (three) Medical times Branch daily. propafenone 2017-0 Yes 1.5{tbl Take 1.5 Univers 150 mg 1-11 } tablets by ity of tablet 00:00: mouth 3 (three) Medical times Branch daily. propafenone 2017-0 Yes 1.5{tbl Take 1.5 Univers 150 mg 1-11 } tablets by ity of tablet 00:00: mouth 3 (three) Medical times Branch daily. propafenone 2017-0 Yes 1.5{tbl Take 1.5 Univers 150 mg 1-11 } tablets by ity of tablet 00:00: mouth 3 (three) Medical times Branch daily. propafenone 2017-0 Yes 1.5{tbl Take 1.5 Univers 150 mg 1-11 } tablets by ity of tablet 00:00: mouth 3 (three) Medical times Branch daily. propafenone 2017-0 Yes 1.5{tbl Take 1.5 Univers 150 mg 1-11 } tablets by ity of tablet 00:00: mouth 3 (three) Medical times Branch daily. propafenone 2017-0 Yes 1.5{tbl Take 1.5 Univers 150 mg 1-11 } tablets by ity of tablet 00:00: mouth 3 (three) Medical times Branch daily. propafenone 2017-0 Yes 1.5{tbl Take 1.5 Univers 150 mg 1-11 } tablets by ity of tablet 00:00: mouth 3 (three) Medical times Branch daily. Vital Signs Vital Name Observation Time Observation Value Comments Source BMI Calculated 2018-10-27 14:27:00 Roxane díaz Jorge Weight 2018-10-27 14:27:00 [facility] Height 2018-10-27 14:27:00 154.94 cm [facility] Respitory Rate 2018-10-27 14:27:00 Roxane díaz Wright Heart Rate 2018-10-27 14:27:00 [facility] Systolic (mm Hg) 2018-10-27 14:27:00 Matt Dotsonann Diastolic (mm Hg) 2018-10-27 14:27:00 [facility] Height 2018-03-08 15:49:00 149.86 cm [facility] BMI Calculated 2018-03-08 15:49:00 Roxane al Jorge Weight 2018-03-08 15:49:00 [facility] Heart Rate 2018-03-08 15:49:00 [facility] Respitory Rate 2018-03-08 15:49:00 Memori al [place] Systolic (mm Hg) 2018-03-08 15:49:00 Matt rial Jorge Diastolic (mm Hg) 2018-03-08 15:49:00 Mem orial [place] Height 2018-01-25 14:43:00 160.02 cm [facility] Weight 2018-01-25 14:43:00 [facility] BMI Calculated 2018-01-25 14:43:00 Memori al [place] Heart Rate 2018-01-25 14:43:00 [facility] Systolic (mm Hg) 2018-01-25 14:43:00 Matt rial Jorge Diastolic (mm Hg) 2018-01-25 14:43:00 Mem orial Jorge Procedures Procedure Date / Time Performing Clinician Source Performed EXTERNAL PROVIDER RECORDS 2019-06-20 05:01:00 Doctor [place], [facility] TELEPHONE MESSAGE/TRIAGE 2019-06-15 05:01:00 Doctor [place], [facility] NOTE [facility] INSURANCE CORRESPONDENCE 2019-06-12 05:01:00 Doctor Orlando, [facility] EXTERNAL PROVIDER RECORDS 2019-05-24 06:01:00 Doctor Orlando, [facility] NON [facility] FAC[facility] 2019-01-13 05:01:00 Doctor Orlando, [facility] DOCUMENTATION [facility] Encounters Start End Encounter Admission Attending Care Care Encounter Source Date/Time Date/Time Type Type Clinicians Facility Department ID 2020-04-20 2020-04-20 Patient Estiven DESEAMUS 1.2.840.114 [id number] Univers 00:00:00 00:00:00 Outreach [place] PRIMARY [id number] i ty of Eb [place]2.[place] [id number] Me dical 388 Branch 2020-04-20 2020-04-20 Patient Estiven DESEAMUS 1.2.840.114 [id number] 00:00:00 00:00:00 Outreach [place] PRIMARY [id number] Eb CARE 4.2.7.2.686 PAVILLION [id number] 2019-06-20 2019-06-20 Orders Doctor SHOBHA 1.2.840.114 [id number] Univers 00:00:00 00:00:00 Only Unassigned, KINDRA [id number] ity of [facility] 4.2.7.2.686 [place] as [id number] [address] 2019-06-20 2019-06-20 Orders Doctor SHOBHA 1.2.840.114 [id number] 00:00:00 00:00:00 Only Unassigned, KINDRA 350.1.13.10 [facility] 4.2.7.2.686 [id number] [facility] 2019-06-15 2019-06-15 Telephone Salinas, [facility] 1.2.840.114 [id number] Univers 00:00:00 00:00:00 Fer L Health [id number] it y of Surgical 4.2.7.2.686 Rusty as Specialti [id number] De dical es [address] [place] [address] 2019-06-15 2019-06-15 [facility] 1.2.840.114 [id number] Univers 00:00:00 00:00:00 Fer L Health [id number] it y of Surgical 4.2.7.2.686 [place] as Specialti [phone] De dical es [address] [facility]3] 2019-06-15 2019-06-15 Orders Doctor SHOBHA 1.2.840.114 [id number] Univers 00:00:00 00:00:00 Only Unassigned, KINDRA 350.1.13.10 [facility]y of [facility] 4.2.7.2.686 [place] as [id number] [address] 2019-06-15 2019-06-15 Telephone Salinas, [facility] 1.2.840.114 [id number] 00:00:00 00:00:00 Fer L Health [id number] Surgical 4.2.7.2.686 Specialti [phone] es [address] [place] [address] 2019-06-15 2019-06-15 Telephone Salinas, [facility] 1.2.840.114 [id number] 00:00:00 00:00:00 Fer L Health 350.1.13.10 Surgical 4.2.7.2.686 Specialti [id number] es 198 [place] 2019-06-15 2019-06-15 Orders Doctor YEAGER 1.2.840.114 [id number] 00:00:00 00:00:00 Only Unassigned, KINDRA 350.1.13.10 [facility] 4.2.7.2.686 [id number] [facility] 2019-06-14 2019-06-14 Outpatient R RITA [facility] [id number] Univers 13:45:00 13:45:[id number] [facility] 2019-06-14 2019-06-14 Outpatient R RITA [facility] [id number] Univers 13:45:00 13:45:00 FER [facility] 2019-06-12 2019-06-12 Orders Doctor SHOBHA Moya.2.840.114 [id number] Univers 00:00:00 00:00:00 Only Unassigned, KINDRA 350.1.13.10 ity of [facility] 4.2.7.2.686 [place] as [id number] [address] 2019-06-12 2019-06-12 Orders Doctor YEAGER 1.2.840.114 [id number] 00:00:00 00:00:00 Only Unassigned, KINDRA 350.1.13.10 [facility] 4.2.7.2.686 [id number] [facility] 2019-05-29 2019-05-29 Telephone Rita DESEAMUS 1.2.840.114 [id number] Univers 00:00:00 00:00:00 Fer L Health 350.1.13.10 it y of Surgical 4.2.7.2.686 [place]y as Specialti [phone] De dical es 198 [facility]3] 2019-05-29 2019-05-29 Telephone Rita DESEAMUS 1.2.840.114 [id number] 00:00:00 00:00:00 Fer L Health 350.1.13.10 Surgical 4.2.7.2.686 Specialti [id number] es 198 [place] 2019-05-24 2019-05-24 Orders Doctor SHOBHA Jimenez2.840.114 [id number] Univers 00:00:00 00:00:00 Only Unassigned, KINDRA 350.1.13.10 ity of [facility] 4.2.7.2.686 Rusty as [id number] [address] 2019-05-24 2019-05-24 Orders Doctor SHOBHA 1.2.840.114 [id number] 00:00:00 00:00:00 Only Unassigned, KINDRA 350.1.13.10 [facility] 4.2.7.2.686 [id number] 2019-05-22 2019-05-22 [facility] 1.2.840.114 [id number] Univers 15:28:05 23:59:00 Encounter Fer LUNDS 350.1.13.10 ity of HOSPITAL 4.2.7.2.686 Rusty as [id number] [address] 2019-05-22 2019-05-22 [facility] 1.2.840.114 [id number] 15:28:05 23:59:00 Encounter Fer [place] 350.1.13.10 HOSPITAL 42.7.2.686 [id number] [facility] 2019-05-22 2019-05-22 [facility] [id number] Univers 00:00:00 00:00:[address] [facility] 2019-04-05 2019-04-05 [facility] [id number] Univers 10:02:10 23:59:[address] [facility] 2019-02-28 2019-02-28 Ambulatory nullFlavo [facility] [id number] Memoria 15:00:00 15:00:00 Pre-Reg r Neurology 06 l [place] Jorge 2019-01-13 2019-01-13 Orders Doctor SHOBHA Moya.2.840.114 [id number] Univers 00:00:00 00:00:00 Only Unassigned, KINDRA 350.1.13.10 ity of [facility] 42.7.2.686 [place] as [id number] [address] 2019-01-13 2019-01-13 Orders Doctor SHOBHA Moya.2.840.114 [id number] 00:00:00 00:00:00 Only Unassigned, KINDRA 350.1.13.10 [facility] 4.2.7.2.686 [id number] 2018-10-27 2018-10-28 Outpatient nullFlavo MNA [id number] Memoria 14:30:00 04:59:59 r Neurology 05 l Sonny Patel 2018-06-30 2018-06-30 Outpatient MHIE MHIE [id number] Memoria 09:30:00 09:30:00 04 l Jorge 2018-04-07 2018-04-09 Outside nullFlavo MNA [id number] Memoria 21:18:00 05:59:59 Medical r Neurology 05 l Records Sonny Patel 2018-04-01 2018-04-03 Phone nullFlavo MNA [id number] Memoria 20:32:00 05:59:59 Message r Neurology 04 l Sonny Patel 2018-03-30 2018-04-01 Phone nullFlavo MNA [id number] Memoria 17:06:00 05:59:59 Message r Neurology 03 l Sonny Patel 2018-03-08 2018-03-09 Outpatient nullFlavo MNA [id number] Memoria 16:00:00 05:59:59 r Neurology 03 l Sonny Patel 2018-01-27 2018-01-29 Phone nullFlavo MNA [id number] Memoria 19:44:00 04:59:59 Message r Neurology 02 l Sonny Patel 2018-01-25 2018-01-26 Outpatient nullFlavo MNA [id number] Memoria 14:45:00 04:59:59 r Neurology 02 l [place] Jorge 2017-12-14 2017-12-14 Outpatient MHIE MHIE [id number] Memoria 11:45:00 11:45:00 01 anny Patel 2017-11-23 2017-11-23 Outpatient MHIE MHIE [id number] Memoria 09:45:00 09:45:00 00 anny Covarrubias This patient has no known results.
--- NOTE | 2021-05-08 20:38 | RAD REPORT ---
EXAM DESCRIPTION: CT - Head Brain Wo Cont - 05/08/2021 8:32 pm CLINICAL HISTORY: SYNCOPE COMPARISON: Head Brain Wo Cont dated 12/05/2020; Head Brain Wo Cont dated 03/19/2018 TECHNIQUE: All CT scans are performed using dose optimization technique as appropriate and may inclu de automated exposure control or mA/KV adjustment according to patient size. FINDINGS: No intracranial hemorrhage, hydrocephalus or extra-axial fluid collection.No areas of brai n edema or evidence of midline shift. Age advanced cerebral atrophy. Chronic small vessel ischemic ch anges. Similar presumably ex vacuo dilatation of the ventricular system. The paranasal sinuses and mastoids are clear. The calvarium is intact. IMPRESSION: No acute intracranial abnormality.
[2021-05-08 20:46] LABS: Absolute Lymphocytes (CBC) 1.7 K/uL (0.7-4.9); Hematocrit 33.1 % (36.0-45.0); Lymphocytes % 11.7 % (15.3-44.8); MPV 8.7 fL (7.6-11.3); RBC Red Blood Cell Count 3.62 M/uL (3.86-4.86)
[2021-05-08 20:47] LABS: Protime INR 1.15
[2021-05-08 21:19] LABS: Urine Blood Negative (Negative); Urine Glucose Negative (Negative); Urine Protein 2+ (Negative); Urine Specific Gravity >=1.030 (1.005-1.030)
[2021-05-08 21:23] LABS: Barbiturates NEGATIVE (NEGATIVE); Benzodiazepines NEGATIVE (NEGATIVE); Cocaine NEGATIVE (NEGATIVE); METHAMPHETAM NEGATIVE (NEGATIVE); Methadone NEGATIVE (NEGATIVE); Opiates NEGATIVE (NEGATIVE); Phencyclidine NEGATIVE (NEGATIVE); THC Cannibis NEGATIVE (NEGATIVE)
[2021-05-08 21:38] LABS: SARS-COV-2 RT PCR NEGATIVE (NEGATIVE)
[2021-05-08 21:54] LABS: ALT/SGPT 21 U/L (12-78); AST/SGOT 24 U/L (15-37); Albumin 2.2 g/dL (3.4-5.0); Alkaline Phosphatase 108 U/L (45-117); BUN Blood Urea Nitrogen 22 mg/dL (7-18); Bicarbonate 24 mmol/L (21-32); Bilirubin Direct 0.2 mg/dL (0-0.2); Bilirubin Total 0.4 mg/dL (0.2-1.0); Glucose Level 149 mg/dL (74-106); NT PRO-BNP 767 pg/mL (<450); Potassium 3.8 mmol/L (3.5-5.1); Protein, Total 8.4 g/dL (6.4-8.2); Sodium Level 137 mmol/L (136-145)
--- NOTE | 2021-05-08 21:57 | RAD REPORT ---
EXAM DESCRIPTION: RAD - Chest Single View - 05/08/2021 9:02 pm CLINICAL HISTORY: syncope COMPARISON: Chest Single View dated 12/05/2020; Chest Single View dated 05/22/2019; Chest Single View d ated 01/13/2019; Chest Single View dated 03/27/2018; Head Brain Wo Cont dated 05/08/2021 FINDINGS: Lines: None. Lungs: Consolidation of the right lung, much of which is likely atelectasis. The left lung is clear. Pleural: Very large right-sided pleural effusion which may be loculated. . Cardiac: Mild cardiomegaly. Bones: No acute fractures. Other: IMPRESSION: Large right pleural effusion which is probably loculated. The etiology of the effusion i s unclear. Consider chest CT for better characterization of these findings.
--- NOTE | 2021-05-08 22:10 | ER ---
Nurse's Notes [facility] Name: Lila Jenkins Age: 80 yrs Sex: Female : 1940 Arrival Date: 05/08/2021 Time: 19:50 Bed 2 Private MD: Diagnosis: Syncope;Pleural effusion, right;Elevated troponin Presentation: 05/08 19:50 Chief complaint: EMS states: Pt was at [facility] when she had a ab2 witnessed syncopal episode while sitting in her wheelchair. Pt is Alert but disoriented upon arrival, which is her baseline. Coronavirus screen: Vaccine status: Patient reports receiving the 2nd dose of the covid vaccine. Client denies travel out of the [place] in the last 14 days. At this time, the client does not indicate any symptoms associated with coronavirus-19. Ebola Screen: Patient negative for fever greater than or equal to 101.5 degrees Fahrenheit, and additional compatible Ebola Virus Disease symptoms Patient denies exposure to infectious person. Patient denies travel to an Ebola-affected area in the 21 days before illness onset. No symptoms or risks identified at this time. Initial Sepsis Screen: Does the patient meet any 2 criteria? No. Patient's initial sepsis screen is negative. Does the patient have a suspected source of infection? No. Patient's initial sepsis screen is negative. Risk Assessment: Do you want to hurt yourself or someone else? Patient reports no desire to harm self or others. Risk Assessment: Do you want to hurt yourself or someone else? Unable to obtain. Onset of symptoms is unknown. 19:50 Method Of Arrival: EMS: [facility] ab2 19:50 Acuity: MAREN 3 ab2 Triage Assessment: 19:58 General: Appears in no apparent distress. comfortable, Behavior is calm, cooperative. ab2 Pain: Denies pain. Historical: - Allergies: 19:54 No Known Allergies; ab2 - Home Meds: 19:54 acetaminophen 500 mg Oral tab [Active]; Depakote 125 mg Oral TbEC 3 tabs 2 times per ab2 day [Active]; galantamine 12 mg Oral tab 1 tab 2 times per day [Active]; Lety-Lanta Oral [Active]; Mirtazapine Oral [Active]; Omeprazole Oral [Active]; propafenone 225 mg Oral tab 1 tab every 8 hours [Active]; Remeron 30 mg Oral tab 1 tab once daily [Active]; sertraline Oral [Active]; Tramadol Oral [Active]; trazodone 150 mg Oral tab 1 tab nightly [Active]; - PMHx: 19:54 Atrial fibrillation; Dementia; Hypertensive disorder; Gastroesophageal reflux disease; ab2 Depressive disorder; Alzheimer's disease; Anxiety; - Immunization history:: Adult Immunizations up to date, Client reports receiving the 2nd dose of the Covid vaccine. - Social history:: Smoking status: unknown. Screenin:57 Abuse screen: Denies threats or abuse. Denies injuries from another. Nutritional ab2 screening: No deficits noted. Tuberculosis screening: No symptoms or risk factors identified. Fall Risk No fall in past 12 months (0 pts). Secondary diagnosis (15 points) No IV (0 pts). Ambulatory Aid- None/Bed Rest/Nurse Assist (0 pts). Gait- Weak (10 pts.). Mental Status- Overestimates/Forgets Limitations (15 pts.). Total Aguilera Fall Scale indicates High Risk Score (45 or more points). Fall prevention measures have been instituted. Side Rails Up X 2 Placed Close to Nursing Station Frequent Obs/Assessments Occuring As available patient and family educated on Fall Prevention Program and Strategies. Assessment: 19:59 General: Appears in no apparent distress. comfortable, Behavior is calm, cooperative, ab2 appropriate for age. Pain: Denies pain. Neuro: Level of Consciousness is awake, alert, Oriented to none Plate Glass Grinder are equal bilaterally Moves all extremities. Cardiovascular: Heart tones S1 S2 present Capillary refill < 3 seconds Patient's skin is warm and dry. Parent/caregiver reports patient has had syncope. Respiratory: Airway is patent Respiratory effort is even, unlabored, Respiratory pattern is regular, symmetrical, Breath sounds are clear bilaterally. GI: No deficits noted. Abdomen is flat, non-distended, Bowel sounds present X 4 quads. Abd is soft and non tender. : No deficits noted. EENT: No deficits noted. Derm: No deficits noted. Skin is intact, is healthy with good turgor, Skin is dry, Skin is pale. Musculoskeletal: No deficits noted. 22:00 Reassessment: Dr. De Jesus notified critical value Troponin 94.8. st1 Vital Signs: 19:45 BP 93 / 55; Pulse 79; Resp 16; Pulse Ox 94% ; st1 19:50 BP 93 / 55; Pulse 79; Resp 20; Temp 98.1(O); Pulse Ox 95% ; Weight 72.57 kg; Height 5 ab2 ft. 7 in. (170.18 cm); Pain 0/10; 20:00 BP 96 / 74; Pulse 83; Resp 16; Pulse Ox 96% ; st1 21:00 BP 101 / 61; Pulse 80; Resp 16; Pulse Ox 97% ; st1 22:30 BP 117 / 106; Pulse 79; Resp 16; Pulse Ox 94% ; st1 05/09 02:52 BP 83 / 71; Pulse 107; Resp 16; Pulse Ox 100% ; Pain 0/10; st1 05/08 19:50 Body Mass Index 25.06 (72.57 kg, 170.18 cm) ab2 ED Course: 05/08 19:50 Patient arrived in ED. ab2 19:54 Triage completed. ab2 19:56 Damir De Jesus MD is Attending Physician. mh7 19:58 Arm band placed on right wrist. ab2 19:58 Patient has correct armband on for positive identification. Bed in low position. Call ab2 light in reach. Side rails up X2. 19:58 No provider procedures requiring assistance completed. ab2 20:32 CT Head Brain wo Cont In Process Unspecified. EDMS 20:33 Liver (Hepatic) Function Sent. ab2 20:33 Magnesium Sent. ab2 20:33 CBC with Automated Diff Sent. ab2 20:33 Basic Metabolic Panel Sent. ab2 20:33 ETOH Level Sent. ab2 20:33 Salicylate Sent. ab2 20:33 Acetaminophen Sent. ab2 20:33 Basic Metabolic Panel Sent. ab2 20:34 CBC with Diff Sent. ab2 20:34 LFT's Sent. ab2 20:34 Magnesium Sent. ab2 20:34 NT PRO-BNP Sent. ab2 20:34 PT-INR Sent. ab2 20:34 Troponin HS Sent. ab2 21:00 Anderson cath inserted, using sterile technique, 18 Fr., by de, balloon inflated, to ab2 gravity drainage, urine specimen collected. 21:00 Missed attempt(s): 20 gauge in right forearm. ab2 21:01 COVID-19/FLU A+B/RSV (Document "Date of Onset" if Symptomatic) Sent. ab2 21:02 XRAY Chest (1 view) In Process Unspecified. EDMS 21:59 Inserted saline lock: 18 gauge in right antecubital area, using aseptic technique. st1 22:03 Consuelo Andrade, RN is Primary Nurse. st1 22:08 Fide Hyatt MD is Hospitalizing Provider. [facility] 23:06 Chest For PE Angio CT In Process Unspecified. EDPA 05/09 02:52 Patient admitted, IV remains in place. st1 Administered Medications: 05/08 22:15 Drug: Rocephin (cefTRIAXone) 1 grams Route: IV; Rate: per protocol; Site: right st1 antecubital; 22:15 Drug: Zithromax (azithromycin) 500 mg Route: IVPB; Infused Over: 1 hrs; Site: right st1 antecubital; Outcome: 22:09 Decision to Hospitalize by Provider. [facility] 05/09 02:51 Admitted to Med/surg accompanied by nurse, via stretcher, room 225, with chart, Report st1 called to RANJEET Monreal Condition: stable Instructed on the need for admit, Demonstrated understanding of patient is aaox1. 04:20 Patient left the ED. st1 Signatures: Dispatcher [employer] Damir Zaragoza MD MD [facility] Alistair Macias [facility] Consuelo Andrade, RN RN st1
--- NOTE | 2021-05-08 22:10 | EDPHYS ---
Physician Documentation [facility] Name: Lila Jenkins Age: 80 yrs Sex: Female : 1940 Arrival Date: 05/08/2021 Time: 19:50 Bed 2 Private MD: ED Physician Damir De Jesus HPI: 05/08 20:07 This 80 yrs old Female presents to ER via EMS with complaints of Syncope. mh7 20:07 The patient has experienced syncope, became unresponsive, collapsed, lost mh7 consciousness. Onset: The symptoms/episode began/occurred today, at an unknown time. Duration: This was a single episode, that lasted an unknown period of time. Context: the episode(s) was witnessed, by the [place] [facility] [place], occurred at a [place] or [place] living facility, occurred while the patient was sitting. Associated injury: The patient did not suffer any apparent associated injury. Associated signs and symptoms: The patient has no apparent associated signs or symptoms. Current symptoms: Currently, the patient is not experiencing any symptoms, the patient feels back to baseline, Per EMS report. Historical: - Allergies: 19:54 No Known Allergies; ab2 - Home Meds: 19:54 acetaminophen 500 mg Oral tab [Active]; Depakote 125 mg Oral TbEC 3 tabs 2 times per ab2 day [Active]; galantamine 12 mg Oral tab 1 tab 2 times per day [Active]; Lety-Lanta Oral [Active]; Mirtazapine Oral [Active]; Omeprazole Oral [Active]; propafenone 225 mg Oral tab 1 tab every 8 hours [Active]; Remeron 30 mg Oral tab 1 tab once daily [Active]; sertraline Oral [Active]; Tramadol Oral [Active]; trazodone 150 mg Oral tab 1 tab nightly [Active]; - PMHx: 19:54 Atrial fibrillation; Dementia; Hypertensive disorder; Gastroesophageal reflux disease; ab2 Depressive disorder; Alzheimer's disease; Anxiety; - Immunization history:: Adult Immunizations up to date, Client reports receiving the 2nd dose of the Covid vaccine. - Social history:: Smoking status: unknown. ROS: 20:07 Unable to obtain ROS due to baseline dementia. mh7 Exam: 20:07 Head/Face: Normocephalic, atraumatic. Eyes: Pupils equal round and reactive to light, mh7 extra-ocular motions intact. Lids and lashes normal. Conjunctiva and sclera are non-icteric and not injected. Cornea within normal limits. Periorbital areas with no swelling, redness, or edema. Neck: Trachea midline, no thyromegaly or masses palpated, and no cervical lymphadenopathy. Supple, full range of motion without nuchal rigidity, or vertebral point tenderness. No Meningismus. Chest/axilla: Normal chest wall appearance and motion. Nontender with no deformity. No lesions are appreciated. Cardiovascular: Regular rate and rhythm with a normal S1 and S2. No gallops, murmurs, or rubs. Normal PMI, no JVD. No pulse deficits. Respiratory: Lungs have equal breath sounds bilaterally, clear to auscultation and percussion. No rales, rhonchi or wheezes noted. No increased work of breathing, no retractions or nasal flaring. Abdomen/GI: Soft, non-tender, with normal bowel sounds. No distension or tympany. No guarding or rebound. No evidence of tenderness throughout. Back: No spinal tenderness. No costovertebral tenderness. Full range of motion. Skin: Warm, dry with normal turgor. Normal color with no rashes, no lesions, and no evidence of cellulitis. MS/ Extremity: Pulses equal, no cyanosis. Neurovascular intact. Full, normal range of motion. 20:07 Constitutional: The patient appears in no acute distress, alert, awake. 20:07 Neuro: Orientation: unable to test, the patient has a history of dementia, Mentation: unable to test, the patient has a history of dementia, Memory: unable to test, the patient has a history of dementia, Cranial nerves: unable to test, the patient has a history of dementia, Cerebellar function: unable to test, the patient has a history of dementia, Motor: no acute changes, Sensation: no obvious gross deficits, Gait: not tested. seizure activity, is not displayed by the patient, Abnormal movements: there are no abnormal movements. Vital Signs: 19:45 BP 93 / 55; Pulse 79; Resp 16; Pulse Ox 94% ; st1 19:50 BP 93 / 55; Pulse 79; Resp 20; Temp 98.1(O); Pulse Ox 95% ; Weight 72.57 kg; Height 5 ab2 ft. 7 in. (170.18 cm); Pain 0/10; 20:00 BP 96 / 74; Pulse 83; Resp 16; Pulse Ox 96% ; st1 21:00 BP 101 / 61; Pulse 80; Resp 16; Pulse Ox 97% ; st1 22:30 BP 117 / 106; Pulse 79; Resp 16; Pulse Ox 94% ; st1 05/09 02:52 BP 83 / 71; Pulse 107; Resp 16; Pulse Ox 100% ; Pain 0/10; st1 05/08 19:50 Body Mass Index 25.06 (72.57 kg, 170.18 cm) ab2 MDM: 05/08 22:07 Differential Diagnosis: cardiac arrhythmia, cerebrovascular accident, drug effect, [facility] emotional response, idiopathic syncope, seizure, sepsis, vasovagal episode. Data reviewed: vital signs, nurses notes, EMS record, [place] [facility] records, lab test result(s), cardiac enzymes, CBC, electrolytes, urinalysis, EKG, radiologic studies, CT scan, plain films. Data interpreted: Pulse oximetry: on room air is 97 %. Interpretation: normal. Counseling: I had a detailed discussion with the patient and/or guardian regarding: the historical points, exam findings, and any diagnostic results supporting the discharge/admit diagnosis, lab results, radiology results, the need for further work-up and treatment in the hospital. Response to treatment: the patient's symptoms have mildly improved after treatment. 22:09 Patient medically screened. [facility] 05/08 20:06 Order name: Basic Metabolic Panel [facility] 05/08 20:06 Order name: CBC with Diff [facility] 05/08 20:06 Order name: LFT's [facility] 05/08 20:06 Order name: Magnesium [facility] 05/08 20:06 Order name: NT PRO-BNP [facility] 05/08 20:06 Order name: PT-INR; Complete Time: 21:07 [facility] 05/08 20:06 Order name: Troponin HS [facility] 05/08 20:06 Order name: Blood Culture Adult (2) [facility] 05/08 20:06 Order name: COVID-19/FLU A+B/RSV (Document "Date of Onset" if Symptomatic); Complete [facility] Time: 21:46 05/08 20:06 Order name: Acetaminophen [facility] 05/08 20:06 Order name: Salicylate [facility] 05/08 20:06 Order name: ETOH Level; Complete Time: 21:14 [facility] 05/08 20:06 Order name: UDS; Complete Time: 21:34 [facility] 05/08 20:07 Order name: Basic Metabolic Panel [facility] 05/08 20:06 Order name: XRAY Chest (1 view); Complete Time: 22:00 [facility] 05/08 20:06 Order name: EKG; Complete Time: 20:07 [facility] 05/08 20:06 Order name: Cardiac monitoring; Complete Time: 20:34 [facility] 05/08 20:06 Order name: EKG - Nurse/Tech; Complete Time: 20:59 [facility] 05/08 20:06 Order name: IV Saline Lock; Complete Time: 23:22 [facility] 05/08 20:06 Order name: Labs collected and sent; Complete Time: 23:22 [facility] 05/08 20:06 Order name: O2 Per Protocol; Complete Time: 20:34 [facility] 05/08 20:06 Order name: CT Head Brain wo Cont; Complete Time: 20:41 [facility] 05/08 20:07 Order name: CBC with Automated Diff; Complete Time: 21:07 [facility] 05/08 20:07 Order name: Liver (Hepatic) Function [facility] 05/08 20:07 Order name: Magnesium [facility] 05/08 21:19 Order name: Urine Dipstick-Ancillary; Complete Time: 21:34 [facility] 05/08 22:22 Order name: Chest For PE Angio CT ej 05/09 01:35 Order name: CONS Physician Consult [facility] 05/08 20:06 Order name: O2 Sat Monitoring; Complete Time: 20:34 [facility] 05/08 20:06 Order name: Urine Dipstick-Ancillary (obtain specimen); Complete Time: 21:01 [facility] 05/08 20:46 Order name: Anderson; Complete Time: 20:59 [facility] Administered Medications: 22:15 Drug: Rocephin (cefTRIAXone) 1 grams Route: IV; Rate: per protocol; Site: right st1 antecubital; 22:15 Drug: Zithromax (azithromycin) 500 mg Route: IVPB; Infused Over: 1 hrs; Site: right st1 antecubital; Disposition Summary: 05/08/21 22:09 Hospitalization Ordered Hospitalization Status: Inpatient Admission [facility] Provider: Fide Hyatt Location: Telemetry/MedSurg (Inpatient) 7 Condition: Stable mh7 Problem: new mh7 Symptoms: have improved mh7 Bed/Room Type: Standard [facility] Room Assignment: 225(05/09/21 01:38) eb1 Diagnosis - Syncope mh7 - Pleural effusion, right mh7 - Elevated troponin [facility] Forms: - Medication Reconciliation Form mh7 - SBAR form 7 Signatures: Dispatcher [employer] EDJunior Acosta PA PA jmm Basinger, Emily, RN RN eb1 Damir De Jesus MD MD 7 Alistair Macias Shellie, RN RN st1 Corrections: (The following items were deleted from the chart) 05/09 01:38 05/08 22:09 [facility] eb1
[2021-05-08] MEDS ORDERED: CEFTRIAXONE 1000 MG/VIAL ONE (22:12)
[2021-05-08] MEDS ORDERED: AZITHROMYCIN 500 MG INJ IVPB ONE (22:12)
[2021-05-08] MEDS ORDERED: NA CHLORIDE 0.9% 250 ML ONE (22:12)
--- NOTE | 2021-05-09 01:57 | P.HP ---
Certification for Inpatient Patient admitted to: Inpatient With expected LOS: <2 Midnights <Pascual Tolbert - Last Filed: 05/09/21 01:59> Patient History Date of Service: 05/09/21 Reason for admission: syncope, pleural effusion History of Present Illness: Ms. Jenkins is a 80 yo F with advanced dementia, hypertension, and atrial fibrillation who was brought in from half-way for unresponsivenss. She has been coughing and more agitated for the past 3 days. She received a sedative at the half-way. Later on, she was sitting in her wheelchair and suddenly collapsed and lost consciousness. EMS was activated and patient was brought to the ED. Vitals are stable, on room air. At bedside, patient does not speak and just grunts. Per daughter, her speech has declined quite a bit over the past few months and she can no longer hold a conversation. She has been in the half-way for 4 years. CXR revealed large right pleural effusion which is probably loculated, etiology unclear, recommend Chest CT, findings below. Daughter says several years ago doctors suspected her mother had liver cancer and she had a workup which ruled out malignancy at that time, however, she did not have a biopsy done. WBC 14.2 Hgb 10.7 Trop 94.8 BNP 767 Glu 149 intermediate paperwork states that patient is DNR. Daughter confirms this. They do not want aggressive intervention at this time. They would like the patient to be comfortable and intervene if improvement of quality of life. She is going to discuss everything with her sister. CT Chest: 1. dilated aortic root. large right pleural effusion with loculated components. compressive atelectatic change right lung. pericardial effusion on right. 2. abnormal appearance left lobe of liver. findings may be related to underlying neoplasms as well as instrumentation or possibly ischemic change. additional suspected hepatic lesion mid right lobe of liver. indeterminate air collections within the liver. correlation with CTAP with contrast suggested. 3. compression fractures of T1 T3 T4 T5 unknown age - Past Medical/Surgical History Diabetic: No -: Atrial fibrillation -: UTI -: Mass on liver/unknown -: Bronchitis -: GERD -: Upper GI Bleed -: Hip pain -: Dementia -: HTN -: Cholecystectomy -: Hysterectomy - Family History Family History: Reviewed- Non-Contributory - Social History Smoking Status: Never smoker Alcohol use: No CD- Drugs: No Caffeine use: No Place of Residence: [facility] <Pascual Tolbert Sterling - Last Filed: 05/09/21 01:59> Date of Service: 05/09/21 <Fide Hyatt - Last Filed: 05/12/21 03:30> Allergies No Known Allergies Allergy (Verified 03/28/18 00:14) Home Medications: Calcium Carbonate/Vitamin D3 [Calcium 600-Vit D3 400 Tablet] 1 each PO DAILY 01/13/19 Acetaminophen [Tylenol] 2 tab PO Q6H PRN 05/22/19 Multivitamin with Iron [Multivitamins with Iron] 1 each PO DAILY #90 tablet 05/25/19 traMADol HCL [Ultram*] 50 mg PO TID PRN #20 tab 05/25/19 Acetaminophen [Tylenol Extra Strength] 500 mg PO DAILY 05/09/21 Lactobacillus Acidophilus [Acidophilus] 1 each PO DAILY 05/09/21 Loperamide HCl [Imodium A-D] 2 tab PO Q6HP PRN 05/09/21 Mirtazapine [Remeron] 15 mg PO BEDTIME 05/09/21 Omeprazole 20 mg PO DAILY 05/09/21 Propafenone HCl 225 mg PO TID 05/09/21 Sertraline HCl 50 mg PO DAILY 05/09/21 Trazodone HCl 50 mg PO BEDTIME 05/09/21 Review of Systems is unable to be obtained <Pascual Tolbert Sterling - Last Filed: 05/09/21 01:59> Physical Examination - Physical Exam General: Alert, In no apparent distress, Demented HEENT: Atraumatic, PERRLA, Mucous membr. moist/pink, EOMI, Sclerae nonicteric Neck: Supple, 2+ carotid pulse no bruit, No LAD, Without JVD or thyroid abnormality Respiratory: Diminished (decreased breath sounds on R side) Cardiovascular: No edema, Regular rate/rhythm, Normal S1 S2 Gastrointestinal: Normal bowel sounds, No tenderness Musculoskeletal: No tenderness Integumentary: No rashes Neurological: Normal strength at 5/5 x4 extr, Normal tone, Abnormal speech, Abnormal affect, Dementia Lymphatics: No axilla or inguinal lymphadenopathy - Studies Laboratory Data (last 24 hrs) 05/08/21 20:25: PT 13.3 H, INR 1.15 05/08/21 20:25: WBC 14.20 H, Hgb 10.7 L, Hct 33.1 L, Plt Count 371 05/08/21 20:25: Sodium 137, Potassium 3.8, BUN 22 H, Creatinine 0.95, Glucose 149 H, Total Bilirubin 0.4, AST 24, ALT 21, Alkaline Phosphatase 108 <Pascual Tolbert - Last Filed: 05/09/21 01:59> Assessment and Plan - Problems (Diagnosis) (1) Loss of consciousness Current Visit: Yes Status: Acute (2) Pleural effusion Current Visit: Yes Status: Acute (3) Pericardial effusion Current Visit: Yes Status: Acute (4) Elevated troponin Current Visit: Yes Status: Acute (5) Atrial fibrillation Onset Date: 03/01/17 Current Visit: No Status: Chronic (6) Dementia Current Visit: No Status: Chronic (7) Hypertension Onset Date: 03/01/17 Current Visit: No Status: Chronic Qualifiers: Hypertension type: essential hypertension Qualified Code(s): I10 - Essential (primary) hypertension - Plan on tele, monitor vitals closely, trend troponins cardiology consulted ECHO pending pulmonology consulted, will consult IR for thoracentesis in the AM IV lasix as BP tolerates continue IV antibiotics, procal and lactate pending, blood cultures pending, UA pending reconcile and continue home medications sliding scale insulin and accuchecks anemia workup DVT ppx Discharge Plan: [facility] Plan to discharge in: 48 Hours - Advance Directives Does patient have a Living Will: Yes Does patient have a Durable POA for Healthcare: Yes - Code Status/Comfort Care Code Status Assessed: Yes (DNR ) Critical Care: No Time Spent Managing Pts Care (In Minutes): 70 <Pascual Tolbert - Last Filed: 05/09/21 01:59> - Problems (Diagnosis) (1) Loculated pleural effusion Current Visit: Yes Status: Acute (2) Liver lesion Current Visit: Yes Status: Acute (3) Alzheimer's dementia Current Visit: Yes Status: Acute <Fide Hyatt - Last Filed: 05/12/21 03:30> Date of Service: 05/09/21 Subjective HPI as mentioned above Review of Systems 10-point ROS is otherwise unremarkable Physical Examination - Vital Signs Reviewed - Physical Exam General: Demented HEENT: Atraumatic, PERRLA, EOMI Neck: Supple, JVD not distended Respiratory: Diminished, Crackles/rales Cardiovascular: Regular rate/rhythm, Normal S1 S2 Gastrointestinal: Normal bowel sounds, Soft and benign, Non-distended, No tenderness Musculoskeletal: No tenderness Integumentary: No rashes Neurological: Dementia Lymphatics: No axilla or inguinal lymphadenopathy Assessment & Plan - Problems (Diagnosis) (1) Loculated pleural effusion Current Visit: Yes Status: Acute (2) Liver lesion Current Visit: Yes Status: Acute (3) Alzheimer's dementia Current Visit: Yes Status: Acute - Plan Plan of care as mentioned above - Advance Directives Does patient have a Living Will: Yes Does patient have a Durable POA for Healthcare: Yes <Fide Hyatt - Last Filed: 05/12/21 03:30>
[2021-05-09] MEDS ORDERED: ONDANSETRON 4 MG/2 ML VIAL IV PRN (04:25)
[2021-05-09 04:48] VITALS: BMI 20.1
[2021-05-09 05:45] LABS: Absolute Lymphocytes (CBC) 1.9 K/uL (0.7-4.9); Hematocrit 30.5 % (36.0-45.0); Lymphocytes % 18.2 % (15.3-44.8); MPV 8.4 fL (7.6-11.3); RBC Red Blood Cell Count 3.42 M/uL (3.86-4.86)
[2021-05-09 06:09] LABS: Albumin 1.9 g/dL (3.4-5.0); Bilirubin Total 0.3 mg/dL (0.2-1.0); Potassium 3.7 mmol/L (3.5-5.1); Protein, Total 7.4 g/dL (6.4-8.2)
[2021-05-09 06:31] LABS: Ferritin 217.9 ng/mL (8-388); Folic Acid, (Folate) 14.4 ng/mL (3.1-17.5); Thyroid Stimulating Hormone 0.634 uIU/mL (0.360-3.740)
[2021-05-09 06:32] LABS: Troponin High Sensitivity 65.9 pg/mL (<58.9)
[2021-05-09] MEDS: INSULIN -REGULAR HUMAN 50 UNIT/0.5 ML ML SQ SCH ×4 (07:30→21:00)
[2021-05-09] MEDS ORDERED: ALBUMIN HUMAN 25% 100 ML IV ONE (08:45)
[2021-05-09] MEDS: clonazePAM 0.5 MG TAB PO SCH ×3 (09:52→21:26)
[2021-05-09] MEDS: ENOXAPARIN 40 MG/0.4 ML SQ SCH (09:53)
[2021-05-09] MEDS: FUROSEMIDE 20 MG/ 2ML VIAL IV SCH (09:53)
--- NOTE | 2021-05-09 11:00 | RAD REPORT ---
EXAM DESCRIPTION: Chest For Pe Angio CLINICAL HISTORY: 80 years Female pleural effusion COMPARISON: None TECHNIQUE: Images were obtained in axial, sagittal, and coronal planes. Intravenous contrast was adm inistered. This exam was performed according to our departmental dose-optimization program which includes use of Automated Exposure Control, adjustment of the mA and/or kV according to patient size and/or use o f iterative reconstruction technique. FINDINGS: No filling defects pulmonary arteries bilaterally. Aortic root is dilated measuring 4.3 cm in greatest transverse dimension. No aortic dissection. Enlarged heart. Pericardial effusion on right. Large right pleural effusion with loculated components . Compressive atelectatic change right lung. No pleural effusion on left. Airspace attenuation left l radha likely atelectatic change. No pneumothorax. Abnormal decreased attenuation left lobe of liver. Indeterminate air collections within the liver. Ad ditional low-attenuation focus mid liver. Compression fractures of indeterminate age T1, T3, T4, and T5 vertebral bodies. IMPRESSION: 1. No evidence for pulmonary embolus. No aortic dissection. Dilated aortic root. Large right pleural effusion with loculated components. Compressive atelectatic change right lung. Pericar dial effusion on right. 2. Abnormal appearance left lobe of liver. The findings may be related to underlying neoplasm as we ll as instrumentation or possibly ischemic change. Additional suspected hepatic lesion mid right lobe of liver. Indeterminate air collections within the liver. Correlation with CT scan of the abdomen an d pelvis utilizing intravenous contrast would be suggested for further characterization. 3. Compression fractures of indeterminate age T1, T3, T4, and T5 vertebral bodies. Electronically signed by: Hannah Esteban MD 05/08/2021 11:41 PM [employer] COUNTER ASSISTANT Due to temporary technical issues with the PACS/Fluency reporting system, reports are being signed by the in house radiologist without review as a courtesy to ensure prompt reporting. The interpreting r adiologist is fully responsible for the content of the report.
--- NOTE | 2021-05-09 11:30 | P.CNS ---
Date of Consult: 05/09/21 Reason for Consult: Multiloculated effusion Chief Complaint: syncope, pleural effusion History of Present Illness: Patient is 80 years of age advanced dementia hypertension atrial fibrillation heart to the emergency room with altered mental status she has been agitated receiving sedation apparently she lost some consciousness she is currently awake not making sense not sure what language she is speaking in long term for 4 years chest x-ray shows a multiloculated right-sided effusion patient is DNR mention of keeping the patient comfortable Allergies No Known Allergies Allergy (Verified 03/28/18 00:14) Home Medications: Calcium Carbonate/Vitamin D3 [Calcium 600-Vit D3 400 Tablet] 1 each PO DAILY 01/13/19 Acetaminophen [Tylenol] 2 tab PO Q6H PRN 05/22/19 Multivitamin with Iron [Multivitamins with Iron] 1 each PO DAILY #90 tablet 05/25/19 traMADol HCL [Ultram*] 50 mg PO TID PRN #20 tab 05/25/19 Acetaminophen [Tylenol Extra Strength] 500 mg PO DAILY 05/09/21 Lactobacillus Acidophilus [Acidophilus] 1 each PO DAILY 05/09/21 Loperamide HCl [Imodium A-D] 2 tab PO Q6HP PRN 05/09/21 Mirtazapine [Remeron] 15 mg PO BEDTIME 05/09/21 Omeprazole 20 mg PO DAILY 05/09/21 Propafenone HCl 225 mg PO TID 05/09/21 Sertraline HCl 50 mg PO DAILY 05/09/21 Trazodone HCl 50 mg PO BEDTIME 05/09/21 - Past Medical/Surgical History Diabetic: No -: Atrial fibrillation -: UTI -: Mass on liver/unknown -: Bronchitis -: GERD -: Upper GI Bleed -: Hip pain -: Dementia -: HTN -: Cholecystectomy -: Hysterectomy - Social History Smoking Status: Unknown if ever smoked Alcohol use: No CD- Drugs: No Caffeine use: No Place of Residence: [facility] Review of Systems is unable to be obtained Physical Examination Temp Pulse Resp BP Pulse Ox 97.3 F 103 H 16 160/86 H 94 05/09/21 08:00 05/09/21 09:53 05/09/21 08:00 05/09/21 09:53 05/09/21 08:00 General: Unresponsive Respiratory: Diminished (On the right side) Gastrointestinal: Normal bowel sounds, Soft and benign Laboratory Data (last 24 hrs) 05/08/21 20:25: PT 13.3 H, INR 1.15 05/08/21 20:25: WBC 14.20 H, Hgb 10.7 L, Hct 33.1 L, Plt Count 371 05/08/21 20:25: Sodium 137, Potassium 3.8, BUN 22 H, Creatinine 0.95, Glucose 149 H, Total Bilirubin 0.4, AST 24, ALT 21, Alkaline Phosphatase 108 - Problems (1) Pleural effusion Current Visit: Yes Status: Acute Plan: Patient is 80 years of age admitted with altered mental status she has significant multiloculated effusion on the right side white count is now normal discussed with daughter Rozina Clay who is a nurse practitioner at the pediatric clinic very poor baseline functioning currently patient is DNR I informed her that her thoracentesis is probably not can to help she needs to be transferred to thoracic center which they do not want so I just suggested plan for comfort care transferred back to the long term possible hospice care
--- NOTE | 2021-05-09 12:20 | RAD REPORT ---
EXAM DESCRIPTION: CT - Abdomen Pelvis W/Wo Contrast - 05/09/2021 11:50 am CLINICAL HISTORY: evaluation of liver Abdominal pain COMPARISON: Abdomen Pelvis W Contrast dated 02/28/2017 TECHNIQUE: Axial non-contrast CT imaging was performed. Following this, biphasic contrast enhanced i maging through the abdomen and pelvis was performed with coronal and sagittal reformatted images. All CT scans are performed using dose optimization technique as appropriate and may include automated exposure control or mA/KV adjustment according to patient size. FINDINGS: There is a large loculated right pleural effusion. Solid related lung in the right lung ba se is present suggesting pneumonia. There is significant dilatation of the intrahepatic biliary tree with pneumobilia present. The degree of biliary dilatation has progressed since 2017 comparative study particularly in the anterior left lobe and superior right lobe. In addition there is a multi loculated enhancing lesion seen in the rig ht dome of the liver measuring 5.1 x 4.5 cm. There is thickening of the adjacent diaphragm and trace adjacent fluid. Pancreatic duct dilatation is stable since prior study. No pancreatic mass evident. The spleen, adren al glands and pancreas are within normal limits. No hydronephrosis is seen in either kidney. No bowel obstruction, free fluid or free air. Mild moderate lumbosacral degenerative changes. Hardware is present in both proximal femurs. IMPRESSION: Enhancing multiloculated 5.1 x 4.5 cm hepatic dome lesion is likely a hepatic abscess. T his is likely direct transdiaphragmatic extension from right lung base infection. Please note the position/location of this abscess makes it not amenable to image guided percutaneous drainage.
[2021-05-09] MEDS: LEVALBUTEROL 1.25 MG/3 ML NEB NEB SCH ×2 (13:45→19:33)
[2021-05-09] MEDS: IPRATROPIUM BROM 0.5MG/2.5ML NEB SCH ×2 (13:45→19:33)
[2021-05-09] MEDS ORDERED: POTASSIUM 25 MEQ EFFERV TAB PO ONE (17:00)
[2021-05-09 17:03] LABS: Magnesium 2.1
[2021-05-09] MEDS: ACETAMINOPHEN 500 MG TAB PO PRN ×2 (17:38→21:27)
[2021-05-09] MEDS ORDERED: CYANOCOBALAMIN 1000MCG/ML INJ IM ONE (18:00)
[2021-05-09] MEDS ORDERED: Levofloxacin500mg IV 500 MG/100 ML BAG IV SCH (20:00)
--- NOTE | 2021-05-09 20:11 | P.PN ---
Subjective Date of Service: 05/09/21 Spoke with family; possible DC home with oral abx and then hospice arrangements if worsening status Review of Systems 10-point ROS is otherwise unremarkable Physical Examination - Vital Signs Temperature: 98.7 F Blood Pressure: 160/72 Pulse: 112 Respirations: 16 Pulse Ox (%): 95 - Physical Exam General: Demented HEENT: Atraumatic, PERRLA, EOMI Neck: Supple, JVD not distended Respiratory: Diminished, Crackles/rales Cardiovascular: Regular rate/rhythm, Normal S1 S2 Gastrointestinal: Normal bowel sounds, Soft and benign, Non-distended, No tenderness Musculoskeletal: No tenderness Integumentary: No rashes Neurological: Dementia Lymphatics: No axilla or inguinal lymphadenopathy - Studies Laboratory Data (last 24 hrs) 05/08/21 20:25: PT 13.3 H, INR 1.15 05/08/21 20:25: WBC 14.20 H, Hgb 10.7 L, Hct 33.1 L, Plt Count 371 05/08/21 20:25: Sodium 137, Potassium 3.8, BUN 22 H, Creatinine 0.95, Glucose 149 H, Magnesium 2.1, Total Bilirubin 0.4, AST 24, ALT 21, Alkaline Phosphatase 108 Microbiology Data (last 24 hrs): 05/08/21 23:46 Blood - Blood Anaerobic Blood Culture - Final Medications List Reviewed: Yes Assessment & Plan - Problems (Diagnosis) (1) Loculated pleural effusion Current Visit: Yes Status: Acute (2) Liver lesion Current Visit: Yes Status: Acute (3) Alzheimer's dementia Current Visit: Yes Status: Acute - Plan 1. Continue with IV antibiotics 2. Awaiting sputum and blood culture 3. Repeat chest x-ray 4. Prognosis is poor; continue with comfort measures. Plan to transfer to [place] in AM; family to visit at bedside; possibly hospice care 5. Respiratory isolation is not needed 6. Continue with nebs as needed 7. O2 per protocol 8. Continue with gentle hydration 9. Repeat labs 10. GI and DVT prophylaxis - Advance Directives Does patient have a Living Will: Yes Does patient have a Durable POA for Healthcare: Yes
[2021-05-09] MEDS ORDERED: TRAMADOL HCL 50 MG TAB PO PRN (20:21)
[2021-05-09] MEDS ORDERED: PROPAFENONE HCL 225 MG PO SCH (21:00)
[2021-05-09] MEDS: TRAZODONE 50 MG TABLET PO SCH (21:26)
[2021-05-09] MEDS: MIRTAZAPINE 15 MG TAB PO SCH (21:27)
--- NOTE | 2021-05-09 21:37 | CON ---
Date of Consultation: 05/09/2021 Reason For Consultation: Syncope and pericardial effusion. History Of Present Illness: 80-year-old female, dementia, hypertension, atrial fibrillation, found u nresponsive in the [facility], agitated, cannot get any history from her at the bedside. Past Medical History: Atrial fibrillation, recurrent UTIs, acid reflex, GI bleed, hypertension. Medication: Refer to reconciliation sheet for detailed list. Allergies: NO KNOWN DRUG ALLERGIES. Family History: No premature coronary artery disease or cancer. Social History: She does not smoke or drink. Does not use any drugs. Review of Systems: All systems reviewed and they were negative except for mentioned in HPI. Physical Examination: Vital Signs: Reviewed. Head And Neck: Pupils reactive to light. No JVD. No cervical lymphadenopathy. Neck: Supple. Thyroid is not enlarged. Lungs: Decreased breathing sounds bilaterally. No accessory muscle use or muscle traction. Heart: Irregularly irregular. No extra sounds. Abdomen: Soft, nontender. Bowel sounds positive. No organomegaly. No masses or hernia. No rigidit y or rebound. Extremities: No clubbing, cyanosis. Intact pulses. Skin: No rashes noted. Neurologic: She is alert with confusion and moving all extremities. Lymph Nodes: No cervical or axillary lymphadenopathy. Investigations: Hemoglobin 10.3, white blood cell count 10.5, troponin 102 from 65. Creatinine is 0 .68. Assessment And Recommendation: 1.Elevated troponin. The patient is extremely confused and has advanced dementia. Her ejection fra ction is normal on echo. I would recommend no further workup at this point, just treat medically. T rend the troponin until the trend is down, but I will recommend beta jenelle and aspirin. Monitor cl inically. Due to overall poor quality, due to advanced dementia, I will refrain from doing invasive testing on this patient. 2.Atrial fibrillation, rate is borderline and blood pressure is acceptable. Introduce low-dose beta- jenelle, metoprolol 25 mg twice a day. The patient is not a candidate for anticoagulation, so I eric mmend aspirin 81 mg daily. 3.Pericardial effusion. I evaluated the echo and in most views, it is very small, however, there is 1 view that it appeared to be moderate to large, but there is no RV collapse or any signs of tampona de. At this point, I will monitor and I will refrain from pericardiocentesis, unless the pericardial fusion becomes worse and/or tamponade physiology happens. Thank you for the consult. /WILDA Voice ID: [id number] Report ID: [id number]
[2021-05-09] MEDS ORDERED: AZITHROMYCIN IV 500 MG in NA CHLORIDE 0.9% 250 ML IVPB SCH (22:00)
[2021-05-09] MEDS ORDERED: CEFTRIAXONE 1,000 MG in NA CHLORIDE 0.9% 50 ML IVPB SCH (22:00)
[2021-05-10] MEDS: PIPER TAZO 3.375 GM in NA CHLORIDE 0.9% 100 ML IV SCH ×3 (01:51→17:02)
[2021-05-10] MEDS: LEVALBUTEROL 1.25 MG/3 ML NEB NEB SCH ×4 (02:04→20:10)
[2021-05-10] MEDS: IPRATROPIUM BROM 0.5MG/2.5ML NEB SCH ×4 (02:04→20:10)
[2021-05-10 06:03] LABS: Absolute Lymphocytes (CBC) 1.4 K/uL (0.7-4.9); Hematocrit 34.8 % (36.0-45.0); Lymphocytes % 10.4 % (15.3-44.8); MPV 8.7 fL (7.6-11.3); RBC Red Blood Cell Count 3.88 M/uL (3.86-4.86)
[2021-05-10 06:30] LABS: Albumin 2.2 g/dL (3.4-5.0); Bilirubin Total 0.6 mg/dL (0.2-1.0); Magnesium 2.2 mg/dL (1.8-2.4); Phosphorus 3.5 mg/dL (2.5-4.9); Potassium 3.1 mmol/L (3.5-5.1)
[2021-05-10] MEDS: INSULIN -REGULAR HUMAN 50 UNIT/0.5 ML ML SQ SCH ×4 (07:30→21:00)
[2021-05-10] MEDS ORDERED: POTASSIUM 25 MEQ EFFERV TAB PO ONE (09:00)
[2021-05-10] MEDS: SERTRALINE HCL 50 MG TAB PO SCH (09:36)
[2021-05-10] MEDS: clonazePAM 0.5 MG TAB PO SCH ×3 (09:36→21:15)
[2021-05-10] MEDS: FUROSEMIDE 20 MG/ 2ML VIAL IV SCH (09:37)
[2021-05-10] MEDS: PROPAFENONE 225 MG CAP PO SCH ×3 (09:37→21:00)
[2021-05-10] MEDS: ENOXAPARIN 40 MG/0.4 ML SQ SCH (09:38)
[2021-05-10] MEDS ORDERED: QUETIAPINE 25 MG TAB PO ONE (11:13)
[2021-05-10] MEDS: MIRTAZAPINE 15 MG TAB PO SCH (21:15)
[2021-05-10] MEDS: TRAZODONE 50 MG TABLET PO SCH (21:15)
[2021-05-10] MEDS: QUETIAPINE 25 MG TAB PO SCH (21:15)
[2021-05-10] MEDS ORDERED: PIPERACIL/TAZO 3.375 GM VIAL IV ONE ×2 (22:47→23:17)
[2021-05-10] MEDS ORDERED: NA CHLORIDE 0.9% 100 ML ONE ×2 (22:49→23:18)
--- NOTE | 2021-05-10 23:36 | P.PN ---
Date of Service: 05/10/21 Subjective Patient prognosis is poor. Family going to set up for [facility] Review of Systems 10-point ROS is otherwise unremarkable Physical Examination - Vital Signs reviewed - Physical Exam General: Demented Respiratory: Diminished, Crackles/rales Cardiovascular: Regular rate/rhythm, Normal S1 S2 Gastrointestinal: Normal bowel sounds, Soft and benign, Non-distended, No tenderness Musculoskeletal: No tenderness Assessment & Plan - Problems (Diagnosis) (1) Loculated pleural effusion Current Visit: Yes Status: Acute (2) Liver lesion Current Visit: Yes Status: Acute (3) Alzheimer's dementia Current Visit: Yes Status: Acute - Plan Continue with POC as below: 1. Continue with IV antibiotics 2. Awaiting sputum and blood culture 3. Repeat chest x-ray 4. Prognosis is poor; continue with comfort measures. Plan to transfer to [place] in [place]; family to visit at bedside; possibly hospice care 5. Respiratory isolation is not needed 6. Continue with nebs as needed 7. O2 per protocol 8. Hep-Lock IV 9. Repeat labs 10. GI and DVT prophylaxis - Advance Directives Does patient have a Living Will: Yes Does patient have a Durable POA for Healthcare: Yes
[2021-05-11] MEDS: IPRATROPIUM BROM 0.5MG/2.5ML NEB SCH ×4 (02:15→19:50)
[2021-05-11] MEDS: LEVALBUTEROL 1.25 MG/3 ML NEB NEB SCH ×4 (02:15→19:50)
[2021-05-11 06:00] LABS: Absolute Lymphocytes (CBC) 2.4 K/uL (0.7-4.9); Hematocrit 32.1 % (36.0-45.0); Lymphocytes % 15.6 % (15.3-44.8); MPV 8.2 fL (7.6-11.3); RBC Red Blood Cell Count 3.56 M/uL (3.86-4.86)
[2021-05-11 06:20] LABS: Bilirubin Total 0.6 mg/dL (0.2-1.0); Potassium 3.6 mmol/L (3.5-5.1); Protein, Total 7.8 g/dL (6.4-8.2)
[2021-05-11] MEDS: INSULIN -REGULAR HUMAN 50 UNIT/0.5 ML ML SQ SCH ×4 (07:30→21:00)
[2021-05-11] MEDS ORDERED: POTASSIUM 25 MEQ EFFERV TAB PO ONE (09:00)
[2021-05-11] MEDS: ENOXAPARIN 40 MG/0.4 ML SQ SCH (09:25)
[2021-05-11] MEDS: PROPAFENONE 225 MG CAP PO SCH ×3 (09:25→21:00)
[2021-05-11] MEDS: FUROSEMIDE 20 MG/ 2ML VIAL IV SCH (09:25)
[2021-05-11] MEDS: SERTRALINE HCL 50 MG TAB PO SCH (09:26)
[2021-05-11] MEDS: clonazePAM 0.5 MG TAB PO SCH ×3 (09:26→21:13)
[2021-05-11] MEDS: PIPER TAZO 3.375 GM in NA CHLORIDE 0.9% 100 ML IV SCH ×4 (09:26→17:13)
--- NOTE | 2021-05-11 21:10 | P.PN ---
Date of Service: 05/11/21 Subjective Patient with no new changes. Family once hospice care at the nursing facility. Continue with oral antibiotic therapy at this time. Review of Systems 10-point ROS is otherwise unremarkable Physical Examination - Vital Signs reviewed - Physical Exam General: Demented Respiratory: Diminished, Crackles/rales Cardiovascular: Regular rate/rhythm, Normal S1 S2 Gastrointestinal: Normal bowel sounds, Soft and benign, Non-distended, No tenderness Musculoskeletal: No tenderness Assessment & Plan - Problems (Diagnosis) (1) Loculated pleural effusion Current Visit: Yes Status: Acute (2) Liver lesion Current Visit: Yes Status: Acute (3) Alzheimer's dementia Current Visit: Yes Status: Acute - Plan Continue with POC as below: 1. Change to oral antibiotics 2. Plan does set up hospice care 3. Pain control 4. Prognosis is poor; continue with comfort measures. Plan to transfer to [place] in AM; family to visit at bedside; possibly hospice care 5. Respiratory isolation is not needed 6. Continue with nebs as needed 7. O2 per protocol 8. Hep-Lock IV 9. Repeat labs 10. GI and DVT prophylaxis - Advance Directives Does patient have a Living Will: Yes Does patient have a Durable POA for Healthcare: Yes
[2021-05-11] MEDS: TRAZODONE 50 MG TABLET PO SCH (21:13)
[2021-05-11] MEDS: MIRTAZAPINE 15 MG TAB PO SCH (21:13)
[2021-05-11] MEDS: QUETIAPINE 25 MG TAB PO SCH (21:14)
[2021-05-12] MEDS: PIPER TAZO 3.375 GM in NA CHLORIDE 0.9% 100 ML IV SCH ×3 (00:52→16:35)
[2021-05-12] MEDS: IPRATROPIUM BROM 0.5MG/2.5ML NEB SCH ×4 (02:20→19:35)
[2021-05-12] MEDS: LEVALBUTEROL 1.25 MG/3 ML NEB NEB SCH ×4 (02:20→19:35)
--- NOTE | 2021-05-12 06:30 | P.PN ---
Date of Service: 05/12/21
[2021-05-12 06:35] LABS: Absolute Lymphocytes (CBC) 2.5 K/uL (0.7-4.9); Hematocrit 31.2 % (36.0-45.0); Lymphocytes % 17.3 % (15.3-44.8); MPV 8.6 fL (7.6-11.3); RBC Red Blood Cell Count 3.45 M/uL (3.86-4.86)
[2021-05-12 06:45] LABS: Bilirubin Total 0.7 mg/dL (0.2-1.0); Potassium 3.8 mmol/L (3.5-5.1); Protein, Total 7.6 g/dL (6.4-8.2)
[2021-05-12] MEDS: INSULIN -REGULAR HUMAN 50 UNIT/0.5 ML ML SQ SCH ×3 (07:30→16:30)
--- NOTE | 2021-05-12 08:42 | ECHO ---
HEIGHT: 5 ft 2 in WEIGHT: 110 lb 0 oz DATE OF STUDY: 05/09/[address]: Pascual Tolbert 2-DIMENSIONAL: YES M.MODE: YES DOPPLER: YES COLOR FLOW: YES TDS: NO PORTABLE: NO DEFINITY: NO BUBBLE STUDY: NO DIAGNOSIS: PERICARDIAL EFFUSION CARDIAC HISTORY: CATHERIZATION: NO SURGERY: NO PROSTHETIC VALVE: NO PACEMAKER: NO MEASUREMENTS (cm) DIASTOLIC (NORMALS) SYSTOLIC (NORMALS) IVSd 1.0 (0.6-1.2) LA Diam 2.0 (1.9-4.0) LVEF 76% LVIDd 3.5 (3.5-5.7) LVIDs 1.9 (2.0-3.5) %FS 44% LVPWd 1.0 (0.6-1.2) Ao Diam 2.7 (2.0-3.7) 2 DIMENSIONAL ASSESSMENT: RIGHT ATRIUM: NORMAL LEFT ATRIUM: NORMAL RIGHT VENTRICLE: NORMAL LEFT VENTRICLE: NORMAL TRICUSPID VALVE: MILD TRICUSPID REGURGITATION MITRAL VALVE: MILD MITRAL REGURGITATION PULMONIC VALVE: NORMAL AORTIC VALVE: MILD AORTIC REGURGITATION PERICARDIAL EFFUSION: MODERATE EFFUSION AORTIC ROOT: NORMAL LEFT VENTRICULAR WALL MOTION: NORMAL. DOPPLER/COLOR FLOW: SEE BELOW. COMMENTS: NORMAL LEFT VENTRICULAR EJECTION FRACTION 60-65% WITH NORMAL WALL MOTION. MILD TRICUSPID REGURGITATION, MILD MITRAL REGURGITATION, MILD AORTIC REGURGITATION. MODERATE PERICARDIAL EFFUSION. NO TAMPONADE. TECHNOLOGIST: LAUREN ALTAMIRANO
[2021-05-12] MEDS: PROPAFENONE 225 MG CAP PO SCH ×2 (09:00→14:00)
[2021-05-12] MEDS ORDERED: POTASSIUM 25 MEQ EFFERV TAB PO ONE (09:00)
[2021-05-12] MEDS: FUROSEMIDE 20 MG/ 2ML VIAL IV SCH (09:32)
[2021-05-12] MEDS: SERTRALINE HCL 50 MG TAB PO SCH (09:33)
[2021-05-12] MEDS: clonazePAM 0.5 MG TAB PO SCH ×2 (09:33→16:35)
[2021-05-12] MEDS: ENOXAPARIN 40 MG/0.4 ML SQ SCH (09:34)
--- NOTE | 2021-05-12 18:30 | P.DS ---
Admission Date: 05/09/21 Discharge Date: 05/12/21 Disposition: HOSPICE-MEDICAL FACILITY Discharge Condition: GOOD Reason for Admission: syncope, pleural effusion Consultations: Pulmonology Cardiology Procedures: Problem list Right-sided loculated pleural effusion, possible pneumonia, possible malignancy Liver abscess/lesion Advanced Alzheimer dementia Brief History of Present Illness: 80 yo F with advanced dementia, hypertension, and atrial fibrillation who [facility] for unresponsivenss. She has been coughing and more agitated for the past 3 days. She received a sedative at the prison. Later on, she was sitting in her wheelchair and suddenly collapsed and lost consciousness. EMS was activated and patient was brought to the ED. Vitals are stable, on room air. At bedside, patient does not speak and just grunts. Per daughter, her speech has declined quite a bit over the past few months and she can no longer hold a conversation. She has been in the prison for 4 years. CXR revealed large right pleural effusion which is probably loculated, etiology unclear, recommend Chest CT, findings below. Daughter says several years ago doctors suspected her mother had liver cancer and she had a workup which ruled out malignancy at that time, however, she did not have a biopsy done. WBC 14.2 Hgb 10.7 Trop 94.8 BNP 767 Glu 149 Hospital Course: Patient was empirically treated with IV antibiotics, breathing treatments, and pain control. CT chest revealed loculated pleural effusions. The CT abdomen/pelvis revealed an enhancing multiloculated 5.1 x 4.5 cm hepatic dome lesion which was felt likely to be a hepatic abscess from direct transdiaphragmatic extension from right lung base infection. Pulmonology was consulted. After several discussions with family, it was decided not to pursue any aggressive measures. Pulmonology recommended comfort care with hospice, as this is not going to improve with IV antibiotics alone, would need a cardiothoracic procedure. Cardiology was consulted for elevated troponin and pericardial effusion. Echocardiogram was obtained which in most views revealed a small effusion, however 1 view appeared moderatelarge, but no RV collapse or any signs of tamponade. Cardiology recommended medical management Patient remained relatively stable throughout her hospitalization, and after further discussions, family decided to pursue comfort care. Patient was [facility]. Vital Signs/Physical Exam: Temp Pulse Resp BP Pulse Ox 98.9 F 103 H 24 H 106/61 99 02/14/22 16:00 05/12/21 16:00 05/12/21 16:00 05/12/21 16:00 05/12/21 16:00 General: Alert, Oriented x1, Demented, Confused HEENT: EOMI, Sclerae nonicteric Respiratory: Crackles/rales Cardiovascular: No edema, Regular rate/rhythm Gastrointestinal: Soft and benign, No tenderness Integumentary: No rashes Neurological: Other (Awakens to verbal stimuli, intermittently follows basic commands), Dementia Laboratory Data at Discharge: WBC 14.20 K/uL (4.3-10.9) H 05/12/21 06:05 Hgb 10.0 g/dL (12.0-15.0) L 05/12/21 06:05 Hct 31.2 % (36.0-45.0) L 05/12/21 06:05 Plt Count 387 K/uL (152-406) 05/12/21 06:05 PT 13.3 SECONDS (9.5-12.5) H 05/08/21 20:25 INR 1.15 05/08/21 20:25 Sodium 140 mmol/L (136-145) 05/12/21 06:05 Potassium 3.8 mmol/L (3.5-5.1) 05/12/21 06:05 BUN 26 mg/dL (7-18) H 05/12/21 06:05 Creatinine 0.91 mg/dL (0.55-1.3) 05/12/21 06:05 Glucose 115 mg/dL (74-106) H 05/12/21 06:05 Phosphorus 3.5 mg/dL (2.5-4.9) 05/10/21 05:35 Magnesium 2.2 mg/dL (1.8-2.4) 05/10/21 05:35 Total Bilirubin 0.7 mg/dL (0.2-1.0) 05/12/21 06:05 AST 22 U/L (15-37) 05/12/21 06:05 ALT 21 U/L (12-78) 05/12/21 06:05 Alkaline Phosphatase 233 U/L (45-117) H D 05/12/21 06:05 Triglycerides 91 mg/dL (<150) 05/10/21 05:35 Cholesterol 151 mg/dL (<200) 05/10/21 05:35 HDL Cholesterol 32 mg/dL (40-60) L 05/10/21 05:35 Cholesterol/HDL Ratio 4.72 05/10/21 05:35 Home Medications: Calcium Carbonate/Vitamin D3 [Calcium 600-Vit D3 400 Tablet] 1 each PO DAILY 01/13/19 Acetaminophen [Tylenol] 2 tab PO Q6H PRN 05/22/19 Multivitamin with Iron [Multivitamins with Iron] 1 each PO DAILY #90 tablet 05/25/19 traMADol HCL [Ultram*] 50 mg PO TID PRN #20 tab 05/25/19 Acetaminophen [Tylenol Extra Strength] 500 mg PO DAILY 05/09/21 Lactobacillus Acidophilus [Acidophilus] 1 each PO DAILY 05/09/21 Loperamide HCl [Imodium A-D] 2 tab PO Q6HP PRN 05/09/21 Mirtazapine [Remeron*] 15 mg PO BEDTIME 05/09/21 Omeprazole 20 mg PO DAILY 05/09/21 Propafenone HCl 225 mg PO TID 05/09/21 Sertraline HCl 50 mg PO DAILY 05/09/21 Trazodone HCl 50 mg PO BEDTIME 05/09/21 Amox/K Clav [Augmentin 600 MG/5 ML Susp] 5 ml PO BID #100 ml 05/12/21 Hydrocodone/Acetaminophen [Hydrocodone-Acetamin 10-325/15] 15 ml PO Q8HP PRN #100 solution 05/12/21 Quetiapine [Seroquel*] 25 mg PO BEDTIME #30 tab 05/12/21 clonazePAM [Klonopin*] 0.5 mg PO TID #20 tab 05/12/21 New Medications: Hydrocodone/Acetaminophen [Hydrocodone-Acetamin 10-325/15] 15 ml PO Q8HP PRN #100 solution PRN Reason: Pain Scale 8-10 (Severe) Amox/K Clav [Augmentin 600 MG/5 ML Susp] 5 ml PO BID #100 ml clonazePAM [Klonopin*] 0.5 mg PO TID #20 tab Quetiapine [Seroquel*] 25 mg PO BEDTIME #30 tab Physician Discharge Instructions: Plan to discharge back to prison with hospice care Diet: Regular Activity: Fall precautions Followup: Unknown,U [Primary Care Provider] - Time spent managing pt's care (in minutes): 45
[2021-05-12 20:31] VITALS: BP 112/73; TEMP 98.8
[2021-05-12 20:41] VITALS: O2SAT 95
== END 2021-05-12 20:05 | disposition hospice, inpatient (51) | DRG 441 ==
LOC: ER 19:47 → ERHOLD 05-09 01:59 → 2ND 05-09 02:27
PROVIDERS: ADMIT Hospitalist; ATTEND Hospitalist
DX: K75.0 Abscess of liver (principal); J18.9 Pneumonia, unspecified organism; J91.8 Pleural effusion in other conditions classified elsewhere; I31.3 Pericardial effusion (noninflammatory); G30.9 Alzheimer's disease, unspecified; F02.80 Dementia in other diseases classified elsewhere, unspecified severity, without behavioral disturbance, psychotic disturbance, mood disturbance, and anxiety; R55 Syncope and collapse; I10 Essential (primary) hypertension; R77.8 Other specified abnormalities of plasma proteins; I48.91 Unspecified atrial fibrillation; Z20.822 Contact with and (suspected) exposure to COVID-19; Z66 Do not resuscitate
CPT/HCPCS: 0241U; 36415; 51702; 70450; 71045; 71275; 74178; 80048; 80053; 80061; 80076; 80307; 80320; 80329; 81003; 82607; 82728; 82746; 82947; 83036; 83540; 83605; 83735; 83880; 84100; 84132; 84145; 84439; 84443; 84466; 84484; 85025; 85610; 87040; 92610; 93005; 93306; 94640; 94760; 96374; 96375; 99285; J0456; J1650; J1940; J2543; J3420; J7050; P9047; Q9967